=== PATIENT | male | born 1955 | race Caucasian/White ===

== ENCOUNTER → 2020-06-18 13:29 | Outpatient (BNVA) | payer OTHER, SELFPAY | PROVIDERS: Family Provider Nurse Practitioner; Visit Provider Internal Medicine | DX: E10.22 Type 1 diabetes mellitus with diabetic chronic kidney disease (principal); N18.5 Chronic kidney disease, stage 5; E10.319 Type 1 diabetes mellitus with unspecified diabetic retinopathy without macular edema; E10.65 Type 1 diabetes mellitus with hyperglycemia; E16.0 Drug-induced hypoglycemia without coma; T38.3X5A Adverse effect of insulin and oral hypoglycemic [antidiabetic] drugs, initial encounter; Z79.4 Long term (current) use of insulin | CPT/HCPCS: 95250; 99205 ==

== ENCOUNTER → 2020-07-01 14:36 | Outpatient (BNVA) | payer OTHER, SELFPAY | PROVIDERS: Family Provider Nurse Practitioner; Visit Provider Internal Medicine | DX: E10.22 Type 1 diabetes mellitus with diabetic chronic kidney disease (principal); N18.5 Chronic kidney disease, stage 5; E10.319 Type 1 diabetes mellitus with unspecified diabetic retinopathy without macular edema; E10.65 Type 1 diabetes mellitus with hyperglycemia; E16.0 Drug-induced hypoglycemia without coma; T38.3X5A Adverse effect of insulin and oral hypoglycemic [antidiabetic] drugs, initial encounter; Z79.4 Long term (current) use of insulin | CPT/HCPCS: 99214 ==

== ENCOUNTER → 2020-11-26 09:31 | Day surgery (SDC) | payer OTHER, SELFPAY ==
[2020-11-26 09:45] VITALS: BP 130/62; PULSE 58; RESP 18; TEMP 36.7; O2SAT 97
[2020-11-26 10:10] VITALS: BMI 31.4
[2020-11-26] MEDS: iron sucrose 200 MG in sodium chloride 0.9% (100 ml) 100 ML 220 MG IV (10:25)
== END ==
PROVIDERS: PCP Nurse Practitioner; Visit Provider Internal Medicine
DX: D50.9 Iron deficiency anemia, unspecified (principal)
CPT/HCPCS: 96365; J1756

== ENCOUNTER → 2020-12-03 09:42 | Day surgery (SDC) | payer OTHER, SELFPAY ==
[2020-12-03] MEDS: iron sucrose 200 MG in sodium chloride 0.9% (100 ml) 100 ML 220 MG IV (10:12)
[2020-12-03 10:15] VITALS: BP 131/60; PULSE 62; RESP 18; TEMP 36.5; O2SAT 96
[2020-12-03 10:16] VITALS: BMI 30.8
== END ==
PROVIDERS: PCP Nurse Practitioner; Visit Provider Internal Medicine
DX: D50.9 Iron deficiency anemia, unspecified (principal)
CPT/HCPCS: 96365; J1756

== ENCOUNTER 2020-12-31 09:41 | Outpatient (RCR) | payer OTHER, SELFPAY ==
[2020-12-10 13:28] VITALS: BMI 30.8
[2020-12-10] MEDS: iron sucrose 200 MG in sodium chloride 0.9% (100 ml) 100 ML 220 MG IV (13:28)
[2020-12-10 13:30] VITALS: BP 127/53; PULSE 60; RESP 18; TEMP 36.8; O2SAT 95
[2020-12-17 10:20] VITALS: BP 118/50; PULSE 61; RESP 18; TEMP 36.5; O2SAT 97
[2020-12-17] MEDS: iron sucrose 200 MG in sodium chloride 0.9% (100 ml) 100 ML 220 MG IV (10:28)
[2020-12-24 09:35] VITALS: BP 139/64; PULSE 64; RESP 18; TEMP 36.4; O2SAT 96
[2020-12-24] MEDS: iron sucrose 200 MG in sodium chloride 0.9% (100 ml) 100 ML 220 MG IV (09:40)
[2020-12-31 09:55] VITALS: BP 139/62; PULSE 68; RESP 16; TEMP 36.6; O2SAT 96
[2020-12-31 10:04] LABS: Hemoglobin 9.3 g/dL (11.7-16.6)
[2020-12-31 10:28] LABS: Ferritin 397 ng/mL (30-400); Iron 76 ug/dL (59-158); Percent Saturation 34.2 % (20-50); Total Iron Binding Capacity 222 mcg/dl; Unsaturated Iron Binding 146 ug/dL (112-347)
== END 2021-01-02 23:59 | disposition home or self-care (01) ==
LOC: GILAB 09:41
PROVIDERS: PCP Nurse Practitioner; Visit Provider Internal Medicine
DX: D50.9 Iron deficiency anemia, unspecified (principal)
CPT/HCPCS: 36415; 82728; 83540; 83550; 85018; 96365; J1756

== ENCOUNTER → 2021-01-03 13:42 | Outpatient (BNVA) | payer OTHER, SELFPAY | PROVIDERS: PCP Nurse Practitioner; Visit Provider Internal Medicine | DX: E10.65 Type 1 diabetes mellitus with hyperglycemia (principal); E10.22 Type 1 diabetes mellitus with diabetic chronic kidney disease; N18.5 Chronic kidney disease, stage 5; E10.319 Type 1 diabetes mellitus with unspecified diabetic retinopathy without macular edema; E16.0 Drug-induced hypoglycemia without coma; T38.3X5A Adverse effect of insulin and oral hypoglycemic [antidiabetic] drugs, initial encounter; Z79.4 Long term (current) use of insulin | CPT/HCPCS: 99214 ==

== ENCOUNTER 2021-05-07 17:04 | Emergency (ER) | payer OTHER, SELFPAY ==
[2021-05-07 17:23] VITALS: BP 207/104; PULSE 57; RESP 16; TEMP 36.6; O2SAT 99; BMI 29.4
--- NOTE | 2021-05-07 17:45 | CTR_ITS ---
PROCEDURE INFORMATION: Exam: CT Head Without Contrast Exam date and time: 05/07/2021 5:45 PM Age: 65 years old Clinical indication: Pain; Altered mental status/memory loss; Headache; Additional info: SCHROEDER TECHNIQUE: Imaging protocol: Computed tomography of the head without contrast. Radiation optimization: All CT scans at this facility use at least one of these dose optimization techniques: automated exposure control; mA and/or kV adjustment per patient size (includes targeted exams where dose is matched to clinical indication); or iterative reconstruction. COMPARISON: CT head wo con* [id number] 08/18/2016 11:40 AM RADIATION DOSE METRICS: Total DLP (mGy-cm): 880.65 FINDINGS: Brain: No hemorrhage. Moderate diffuse cerebral atrophy and sequela of chronic small vessel ischemic disease. No mass effect. Cerebral ventricles: No ventriculomegaly. Paranasal sinuses: Visualized sinuses are unremarkable. No fluid levels. Mastoid air cells: Visualized mastoid air cells are well aerated. Bones/joints: Unremarkable. No acute fracture. Soft tissues: Unremarkable. CT/CT head wo con* [id number] IMPRESSION: No acute intracranial abnormality.
--- NOTE | 2021-05-07 17:45 | XRR_ITS ---
PROCEDURE INFORMATION: Exam: XR Chest Exam date and time: 05/07/2021 5:45 PM Age: 65 years old Clinical indication: Other: Weakness TECHNIQUE: Imaging protocol: XR of the chest. Views: 1 view. COMPARISON: CR Chest 1 [place] [id number] 10/26/2017 6:51 PM FINDINGS: Lungs: Unremarkable. No consolidation. Pleural spaces: Unremarkable. No pleural effusion. No pneumothorax. Heart/Mediastinum: Cardiomegaly. Bones/joints: Unremarkable. XR/XR chest 1V portable [id number] IMPRESSION: Cardiomegaly. Otherwise, no acute findings.
--- NOTE | 2021-05-07 17:46 | ED_ITS ---
HPI - Weakness General: Chief complaint: Weakness Stated complaint: HYPERTENSIVE Time Seen by Provider: 05/07/21 17:41 Source: patient and EMS Mode of arrival: EMS Limitations: no limitations History of Present Illness: 65-year-old male who states that he does dialysis this morning does get dialysis Wednesday states that he is been having some weakness throughout the day along with high blood pressure. States that he is having some slurred speech difficulty walking they checked his blood sugar and it was low when EMS arrived he had drank some juice his blood sugar was 70 patient's blood sugar here is in the 30s currently we will give him D50 he is sluggish here denies any headache denies any vomiting or diarrhea he is on insulin for his diabetes. He states he has had issues with hypoglycemia in the past as well Associated symptoms: Reports headache(s); Denies chest pain, chills, dysuria, easy bruising, fever(s), nausea or vomiting Review of Systems Const: Denies: fever(s), chills, body aches or change in appetite Eyes: Denies: blurry vision or eye discomfort ENMT: Denies: throat pain or dental pain Card: Denies: chest pain Resp: Denies: dyspnea GI: Denies: abdominal pain, nausea, vomiting or diarrhea : Denies: dysuria Musc: Denies: neck pain or back pain Skin/Breast: Denies: rash Neuro: Reports: headache(s) and weakness in extremities Psych: Denies: depression [place]/Lymph: Denies: easy bruising All/Imm: Denies: urticaria PFSH ED PFSH: Medical History 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 Coronary artery disease Diabetic retinopathy Fistula of artery Tonsillectomy planned Uncontrolled type 1 diabetes mellitus Surgical History History of cholecystectomy Family History Other Cancer Diabetes Social History Smoking and tobacco status: former smoker Second hand smoke exposure: No Alcohol intake: never Physical Exam Const: COMMON NORMALS: no acute distress, patient oriented x3 and healthy appearing HENMT: COMMON NORMALS: normocephalic and atraumatic HEAD & SCALP: normocephalic and atraumatic Eye: COMMON NORMALS: Equal, round and reactive pupils present and EOMs intact bilaterally PUPIL: Yes Equal, round and reactive pupils present Neck/C-Spine: COMMON NORMALS: full ROM and supple Chest: COMMONS NORMALS: normal inspection of the chest and normal palpation of entire chest wall Resp: COMMON NORMALS: normal respiratory effort, No retractions, No use of accessory muscles and clear to auscultation bilaterally AUSCULTATION: clear to auscultation bilaterally Cardio: COMMON NORMALS: regular rate, regular rhythm and No murmurs present (Cardio) RATE: regular rate RHYTHM: regular rhythm GI: COMMON NORMALS: Normal to inspection, nondistended, normoactive bowel sounds present, Soft to palpation, non-tender and no masses PALPATION: Yes Soft to palpation Extremity: COMMON NORMALS: normal to inspection and full ROM Neuro: COMMON NORMALS: patient oriented x3, moves all extremities and no focal motor deficits Psych: COMMON NORMALS: mental status grossly normal, Normal thought process present and cooperative THOUGHT PROCESS: Normal thought process present Skin: COMMON NORMALS: no rashes or lesions noted and no wounds GENERAL SKIN EXAM: no rashes or lesions noted Course Vital Signs: Vital signs: Vital Signs Temperature 98.1 F 05/07/21 20:13 Pulse Rate 98 05/07/21 20:13 Respiratory Rate 16 05/07/21 20:13 Blood Pressure 191/99 05/07/21 20:13 Pulse Oximetry 99 05/07/21 20:13 MDM - Weakness Medical Decision Making Patient presents here with weakness likely from hypoglycemia his hypoglycemia is stabilized here and his last few blood glucoses has been normal and he is eaten here. He is also hypertensive which is chronic in nature he has no signs of a stroke blood work head CT are normal he is stable for discharge he is ambulating halls without any difficulty he is to follow-up PCP and return if worsening. Lab Data : 05/07/21 16:36 05/07/21 16:36 Radiology Impressions Chest X-Ray 05/07/21 17:45 IMPRESSION: Cardiomegaly. Otherwise, no acute findings. Head CT 05/07/21 17:45 IMPRESSION: No acute intracranial abnormality. Laboratory Results WBC 7.3 10^3/uL (4.0-10.0) 05/07/21 16:36 RBC 3.67 10^6/uL (4.1-5.3) L 05/07/21 16:36 Hgb 10.6 g/dL (11.7-16.6) L 05/07/21 16:36 Hct 32.8 % (42.0-52.0) L 05/07/21 16:36 MCV 89.4 fl (80-94) 05/07/21 16:36 MCH 28.9 pg (28.0-34.0) 05/07/21 16:36 MCHC 32.3 g/dL (30.0-36.0) 05/07/21 16:36 RDW 13.0 % (12.1-15.1) 05/07/21 16:36 Plt Count 347 10^3/cmm (130-400) 05/07/21 16:36 MPV 9.9 fL (7.4-10.4) 05/07/21 16:36 Neut % (Auto) 78.7 % 05/07/21 16:36 Lymph % (Auto) 12.0 % 05/07/21 16:36 [place] % (Auto) 6.0 % 05/07/21 16:36 Eos % (Auto) 2.5 % 05/07/21 16:36 Baso % (Auto) 0.4 % 05/07/21 16:36 Neut # (Auto) 5.76 10^3/uL (1.8-7.7) 05/07/21 16:36 Lymph # (Auto) 0.9 10^3/uL (0.8-4.8) 05/07/21 16:36 [place] # (Auto) 0.4 10^3/uL (0.2-0.9) 05/07/21 16:36 Eos # (Auto) 0.2 10^3/uL (0.0-0.8) 05/07/21 16:36 Baso # (Auto) 0.0 10^3/uL (0.0-0.1) 05/07/21 16:36 Nucleated RBC % (auto) 0 % 05/07/21 16:36 Nucleated RBCs # 0.0 /100WBC 05/07/21 16:36 PT 13.30 SECONDS (12.1-14.9) 05/07/21 16:36 INR 0.98 (0.8-1.2) 05/07/21 16:36 Sodium 141 mmol/L (136-145) 05/07/21 16:36 Potassium 3.8 mmol/L (3.5-5.1) 05/07/21 16:36 Chloride 100 mmol/L (98-107) 05/07/21 16:36 Carbon Dioxide 25 mmol/L (22-29) 05/07/21 16:36 Anion Gap 19.8 (5-19) H 05/07/21 16:36 BUN 18 mg/dL (8-23) 05/07/21 16:36 Creatinine 2.9 mg/dL (0.7-1.2) H 05/07/21 16:36 GFR Calculation 22.1 mL/min (90-130) L 05/07/21 16:36 Glucose 49 mg/dL (65-115) L 05/07/21 16:36 POC Glucose 237 mg/dL (70-110) H 05/07/21 21:08 Calculated Osmolality 291 mOsm/kg (285-295) 05/07/21 16:36 Calcium 9.6 mg/dL (8.5-10.5) 05/07/21 16:36 Total Bilirubin 0.3 mg/dL (0.15-1.2) 05/07/21 16:36 AST 17 U/L (0-40) 05/07/21 16:36 ALT 18 U/L (0-41) 05/07/21 16:36 Alkaline Phosphatase 75 IU/L (40-130) 05/07/21 16:36 Troponin T Baseline 46 ng/L (0-15) H 05/07/21 16:36 Troponin T 120 Minute 41.59 ng/L (0-15) H 05/07/21 18:16 Delta Troponin T -4.41 ABS# (0-10) L 05/07/21 18:16 Total Protein 6.8 g/dL (6.6-8.7) 05/07/21 16:36 Albumin 4.5 g/dL (3.5-5.2) 05/07/21 16:36 Globulin 2.3 g/dL (1.3-4.6) 05/07/21 16:36 Imaging Data CXR: I personally reviewed and interpreted this imaging study as follows: Radiologist's impression: IMPRESSION: Cardiomegaly. Otherwise, no acute findings. CT Head: Radiologist's impression: IMPRESSION: No acute intracranial abnormality EKG Data EKG 1: I personally reviewed and interpreted this EKG as follows: EKG interpretation date: 05/07/21 EKG interpretation time: 18:20 Interpretation: nsr hr [address] or t wave abnormalities qrs 117 qtc 471 Discharge Plan Discharge Patient Disposition: Home Clinical Impression: Hypoglycemia, Hypertension, 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 Condition: Stable Prescriptions: No Action calcitriol 0.5 mcg capsule 0.5 mcg PO DAILY 0RF rosuvastatin 10 mg tablet 10 mg PO DAILY 0RF nifedipine 90 mg tablet extended release 90 mg PO DAILY 0RF furosemide [Lasix] 80 mg tablet 80 mg PO BID 0RF hydralazine 100 mg tablet 100 mg PO TID 0RF carvedilol 12.5 mg tablet 12.5 mg PO BID 0RF Rx Instructions: must administer with a meal/food Procrit 4,000 unit/mL solution 4,000 unit SUBCUT .Q7days 0RF insulin lispro [Humalog KwikPen Insulin] 100 unit/mL insulin pen See Rx Instructions SUBCUT TID Qty: 15 3RF Rx Instructions: 180-200 15 units 201-220 20 units 221-240 22 units Tresiba FlexTouch U-200 200 unit/mL (3 mL) insulin pen 36 unit SUBCUT DAILY Qty: 18 3RF Rx Instructions: in the morning Discharge Orders: Discharge ED (Routine); Ordered 05/07/21 Ordered By: Sammy Almazan Referrals: Yasmin Kohler FNP [Primary Care Provider] - 1-3 days Discharge Diet: Advance as tolerated Discharge Activity: Resume usual activity Patient Instructions: Hypoglycemia in a Person with Diabetes (ED), Hypertension (ED) Coding Level of Care Code ED Combat Control Manager for Chg Fwd Exam Comprehensive NIH stroke score NIHSS Level Of Consciousness - 1a: 0 Level Of Consciousness Questions - 1b: Both Correct Level Of Consciousness Commands - 1c: Both Correct Best Gaze - 2: Normal Visual [place] - 3: No Visual Loss Facial Palsy - 4: Normal Motor Arm Right - 5: No Drift Motor Arm Left - 5: No Drift Motor Leg Right - 6: No Drift Motor Leg Left - 6: No Drift Limb Ataxia - 7: Absent Sensory - 8: Normal Best Language - 9: No Aphasia Dysarthia - 10: Normal Extinction And Inattention - 11: 0 Score Total Score: 0
--- NOTE | 2021-05-07 17:46 | ECG_ITS ---
[facility] Test Date: 2021-05-07 Pat Name: Leo Lake Department: Room: Gender: Male Manager Legal: : 1955 Requested By: Sammy Almazan Order Number: [id number] Kevin MD: Ad Deleon M.D. Measurements Intervals [place] Rate: 62 P: 67 [place]: 194 QRS: -27 QRSD: 117 T: 71 QT: 465 QTc: 475 Interpretive Statements SINUS RHYTHM POSSIBLE ANTERIOR MYOCARDIAL INFARCTION , OF INDETERMINATE AGE [30 ms Q WAVE IN V3/V4, OR R < 0.2 mV IN V4] Compared to ECG 10/26/2017 18:43:13 Sinus bradycardia no longer present ST (T wave) deviation no longer present Early repolarization no longer present Myocardial infarct finding still present Electronically Signed On 05-07-2021 18:27:13 AIR SAW OPERATOR by Ad Deleon M.D. [email or web address]/NU/[id number] f
[2021-05-07 17:53] LABS: Basophils % 0.4 %; Eosinophils # 0.2 10^3/uL (0.0-0.8); Eosinophils % 2.5 %; Hematocrit 32.8 % (42.0-52.0); Hemoglobin 10.6 g/dL (11.7-16.6); Lymphocytes # 0.9 10^3/uL (0.8-4.8); Mean Corpuscular HGB Conc 32.3 g/dL (30.0-36.0); Mean Corpuscular Hemoglobin 28.9 pg (28.0-34.0); Mean Corpuscular Volume 89.4 fl (80-94); Mean Platelet Volume 9.9 fL (7.4-10.4); Monocytes # 0.4 10^3/uL (0.2-0.9); Neutrophils # 5.76 10^3/uL (1.8-7.7); Neutrophils % 78.7 %; Nucleated Red Blood Cells % 0 %; Platelet Count 347 10^3/cmm (130-400); Red Blood Count 3.67 10^6/uL (4.1-5.3); White Blood Count 7.3 10^3/uL (4.0-10.0)
[2021-05-07] MEDS: hyDRALAzine 20 mg/mL INJ 1 mL 10 MG IVP ×2 (17:59→19:35)
[2021-05-07 18:00] VITALS: BP 218/104; PULSE 76; RESP 16; O2SAT 98
[2021-05-07 18:06] LABS: INR 0.98 (0.8-1.2)
[2021-05-07 18:29] LABS: Glucose Point of Care 39 mg/dL (70-110)
[2021-05-07 18:29] LABS: Glucose Point of Care 39 mg/dL (70-110)
[2021-05-07 18:30] LABS: Troponin(5th) Baseline 46 ng/L (0-15)
[2021-05-07 18:32] LABS: Alanine Aminotransferase 18 U/L (0-41); Albumin Level 4.5 g/dL (3.5-5.2); Alkaline Phosphatase 75 IU/L (40-130); Anion Gap 19.8 (5-19); Aspartate Amino Transferase 17 U/L (0-40); Blood Urea Nitrogen 18 mg/dL (8-23); Calcium 9.6 mg/dL (8.5-10.5); Carbon Dioxide 25 mmol/L (22-29); Chloride 100 mmol/L (98-107); Globulin 2.3 g/dL (1.3-4.6); Glomerular Filtration Rate 22.1 mL/min (90-130); Glucose 49 mg/dL (65-115); Osmolality Calculated 291 mOsm/kg (285-295); Potassium 3.8 mmol/L (3.5-5.1); Sodium 141 mmol/L (136-145); Total Bilirubin 0.3 mg/dL (0.15-1.2); Total Protein 6.8 g/dL (6.6-8.7)
[2021-05-07] MEDS: dextrose 50% syringe 50 mL IVP (18:32)
[2021-05-07 18:48] VITALS: BP 198/102
[2021-05-07 18:50] LABS: Troponin 5 2HR 41.59 ng/L (0-15)
[2021-05-07 18:53] LABS: Troponin 5 2HR Delta -4.41 ABS# (0-10)
[2021-05-07 19:14] LABS: Glucose Point of Care 156 mg/dL (70-110)
--- NOTE | 2021-05-07 19:46 | ECG_ITS ---
[facility] Test Date: 2021-05-07 Pat Name: Leo Lake Department: Room: Gender: Male Facility Maintenance Technician: : 1955 Requested By: Sammy Almazan Order Number: [id number] Kevin MD: Zeina Hodgson M.D. Measurements Intervals [place] Rate: 62 P: 67 RI: 194 QRS: -27 QRSD: 117 T: 71 QT: 465 QTc: 475 Interpretive Statements SINUS RHYTHM POSSIBLE ANTERIOR MYOCARDIAL INFARCTION , OF INDETERMINATE AGE [30 ms Q WAVE IN V3/V4, OR R < 0.2 mV IN V4] Compared to ECG 10/26/2017 18:43:13 Sinus bradycardia no longer present ST (T wave) deviation no longer present Early repolarization no longer present Myocardial infarct finding still present Electronically Signed On 05-08-2021 9:22:07 OLD COIN DEALER by Zeina Hodgson M.D. [email or web address] hospital of [email or web address] Good Softwareselect medical specialty hospital - [email or web address]/store/NU/[email or web address]/[id number] brad
[2021-05-07 20:01] LABS: Glucose Point of Care 95 mg/dL (70-110)
[2021-05-07 20:13] VITALS: BP 191/99; PULSE 98; RESP 16; TEMP 36.7; O2SAT 99
[2021-05-07] MEDS: labetalol 5 mg/mL SDV 20mL 10 MG IVP (20:48)
[2021-05-07 21:12] LABS: Glucose Point of Care 237 mg/dL (70-110)
== END 2021-05-07 21:49 | disposition home or self-care (01) ==
PROVIDERS: Emergency Provider Emergency Medicine; PCP Nurse Practitioner
DX: E10.649 Type 1 diabetes mellitus with hypoglycemia without coma (principal); E10.22 Type 1 diabetes mellitus with diabetic chronic kidney disease; I12.0 Hypertensive chronic kidney disease with stage 5 chronic kidney disease or end stage renal disease; N18.5 Chronic kidney disease, stage 5; I25.10 Atherosclerotic heart disease of native coronary artery without angina pectoris; Z79.4 Long term (current) use of insulin; Z87.891 Personal history of nicotine dependence
CPT/HCPCS: 36416; 70450; 71045; 80053; 82962; 84484; 85025; 85610; 93005; 96374; 96375; 96376; 99284; J0360; J3490

== ENCOUNTER → 2021-06-26 10:19 | Outpatient (BNVA) | payer OTHER, SELFPAY | PROVIDERS: PCP Nurse Practitioner; Visit Provider Internal Medicine | DX: E10.65 Type 1 diabetes mellitus with hyperglycemia (principal); E10.319 Type 1 diabetes mellitus with unspecified diabetic retinopathy without macular edema; E10.22 Type 1 diabetes mellitus with diabetic chronic kidney disease; N18.5 Chronic kidney disease, stage 5; E16.0 Drug-induced hypoglycemia without coma; T38.3X5A Adverse effect of insulin and oral hypoglycemic [antidiabetic] drugs, initial encounter; Z79.4 Long term (current) use of insulin | CPT/HCPCS: 99214 ==

== ENCOUNTER 2021-09-22 15:16 | Outpatient (CLI) | payer OTHER, SELFPAY ==
[2021-09-22 15:51] LABS: Estmated Average Glucose 114; Hemoglobin A1C 5.6 % (4.0-6.0)
[2021-09-22 15:55] LABS: Chol HDL Ratio 2.63 mg/dL (1.0-5.00); Cholesterol 129 mg/dL (0-200); HDL Cholesterol 49 mg/dL (60-100); LDL Cholesterol Calculated 62 mg/dL (50-129); LDL HDL Ratio 1.27 RATIO (0.00-3.22); Triglycerides 90 mg/dL (0-150)
== END 2021-09-22 15:17 | disposition home or self-care (01) ==
LOC: LAB 15:20
PROVIDERS: PCP Nurse Practitioner; Visit Provider Internal Medicine
DX: E10.65 Type 1 diabetes mellitus with hyperglycemia (principal); Z79.4 Long term (current) use of insulin
CPT/HCPCS: 80061; 83036

== ENCOUNTER → 2021-09-25 12:33 | Outpatient (BNVA) | payer OTHER, SELFPAY | PROVIDERS: PCP Nurse Practitioner; Visit Provider Internal Medicine | DX: E10.65 Type 1 diabetes mellitus with hyperglycemia (principal); E10.319 Type 1 diabetes mellitus with unspecified diabetic retinopathy without macular edema; E10.649 Type 1 diabetes mellitus with hypoglycemia without coma; E10.22 Type 1 diabetes mellitus with diabetic chronic kidney disease; N18.5 Chronic kidney disease, stage 5; E16.0 Drug-induced hypoglycemia without coma; T38.3X5A Adverse effect of insulin and oral hypoglycemic [antidiabetic] drugs, initial encounter; Z79.4 Long term (current) use of insulin | CPT/HCPCS: 99214 ==

== ENCOUNTER 2021-12-24 09:50 | Outpatient (CLI) | payer OTHER, SELFPAY ==
[2021-12-24 10:45] LABS: Chol HDL Ratio 2.78 mg/dL (1.0-5.00); Cholesterol 139 mg/dL (0-200); HDL Cholesterol 50 mg/dL (60-100); LDL Cholesterol Calculated 73 mg/dL (50-129); LDL HDL Ratio 1.46 RATIO (0.00-3.22); Triglycerides 81 mg/dL (0-150)
[2021-12-24 10:52] LABS: Estmated Average Glucose 134; Hemoglobin A1C 6.3 % (4.0-6.0)
== END 2021-12-24 09:51 | disposition home or self-care (01) ==
PROVIDERS: PCP Nurse Practitioner; Visit Provider Internal Medicine
DX: E10.65 Type 1 diabetes mellitus with hyperglycemia (principal); E16.0 Drug-induced hypoglycemia without coma; T38.3X5A Adverse effect of insulin and oral hypoglycemic [antidiabetic] drugs, initial encounter; Z79.4 Long term (current) use of insulin
CPT/HCPCS: 80061; 83036

== ENCOUNTER → 2021-12-29 14:34 | Outpatient (BNVA) | payer OTHER, SELFPAY | PROVIDERS: PCP Nurse Practitioner; Visit Provider Internal Medicine | DX: E10.65 Type 1 diabetes mellitus with hyperglycemia (principal); E10.22 Type 1 diabetes mellitus with diabetic chronic kidney disease; E10.319 Type 1 diabetes mellitus with unspecified diabetic retinopathy without macular edema; E10.649 Type 1 diabetes mellitus with hypoglycemia without coma; N18.5 Chronic kidney disease, stage 5; E16.0 Drug-induced hypoglycemia without coma; T38.3X5A Adverse effect of insulin and oral hypoglycemic [antidiabetic] drugs, initial encounter; Z79.4 Long term (current) use of insulin | CPT/HCPCS: 99214 ==

== ENCOUNTER 2022-04-23 09:07 | Outpatient (CLI) | payer OTHER, SELFPAY ==
[2022-04-23 09:53] LABS: Alanine Aminotransferase 18 U/L (0-41); Albumin Level 4.5 g/dL (3.5-5.2); Alkaline Phosphatase 63 U/L (40-130); Anion Gap 18.9 (5-19); Aspartate Amino Transferase 13 U/L (0-40); Blood Urea Nitrogen 33 mg/dL (8-23); Carbon Dioxide 30 mmol/L (22-29); Chloride 95 mmol/L (98-107); Chol HDL Ratio 2.56 mg/dL (1.0-5.00); Cholesterol 128 mg/dL (0-200); Globulin 2.6 g/dL (1.3-4.6); Glomerular Filtration Rate 9.7 mL/min (90-130); Glucose 140 mg/dL (65-115); HDL Cholesterol 50 mg/dL (60-100); LDL Cholesterol Calculated 60 mg/dL (50-129); Osmolality Calculated 300 mOsm/kg (285-295); Potassium 3.9 mmol/L (3.5-5.1); Sodium 140 mmol/L (136-145); Total Bilirubin 0.4 mg/dL (0.15-1.2); Total Protein 7.1 g/dL (6.6-8.7); Triglycerides 90 mg/dL (0-150)
[2022-04-23 10:03] LABS: Creatinine Urine, Random 134 mg/dL (39-259)
[2022-04-23 10:06] LABS: Estmated Average Glucose 174; Hemoglobin A1C 7.7 % (4.0-6.0)
[2022-04-23 10:21] LABS: Microalbum Creatinine Ratio Ur 1493 mg/dL (0-20); Microalbumin Random Urine 200 ug/dL (0-20)
== END 2022-04-23 09:08 | disposition home or self-care (01) ==
LOC: LAB 09:14
PROVIDERS: PCP Nurse Practitioner; Visit Provider Internal Medicine
DX: E10.65 Type 1 diabetes mellitus with hyperglycemia (principal); E10.22 Type 1 diabetes mellitus with diabetic chronic kidney disease; N18.5 Chronic kidney disease, stage 5
CPT/HCPCS: 36415; 80053; 80061; 82044; 83036

== ENCOUNTER → 2022-05-12 14:04 | Outpatient (BNVA) | payer OTHER, SELFPAY | PROVIDERS: PCP Nurse Practitioner; Visit Provider Internal Medicine | DX: E10.319 Type 1 diabetes mellitus with unspecified diabetic retinopathy without macular edema (principal); E10.65 Type 1 diabetes mellitus with hyperglycemia; E10.22 Type 1 diabetes mellitus with diabetic chronic kidney disease; E10.649 Type 1 diabetes mellitus with hypoglycemia without coma; E78.2 Mixed hyperlipidemia; I25.10 Atherosclerotic heart disease of native coronary artery without angina pectoris; N18.5 Chronic kidney disease, stage 5; E16.0 Drug-induced hypoglycemia without coma; T38.3X5A Adverse effect of insulin and oral hypoglycemic [antidiabetic] drugs, initial encounter; Z79.4 Long term (current) use of insulin | CPT/HCPCS: 99214 ==

== ENCOUNTER 2022-08-06 09:36 | Outpatient (CLI) | payer OTHER, SELFPAY ==
[2022-08-06 10:22] LABS: Alanine Aminotransferase 19 U/L (0-41); Albumin Level 4.3 g/dL (3.5-5.2); Alkaline Phosphatase 63 U/L (40-130); Anion Gap 15.6 (5-19); Aspartate Amino Transferase 12 U/L (0-40); Blood Urea Nitrogen 31 mg/dL (8-23); Calcium 9.3 mg/dL (8.5-10.5); Carbon Dioxide 32 mmol/L (22-29); Chloride 94 mmol/L (98-107); Cholesterol 206 mg/dL (0-200); Globulin 2.7 g/dL (1.3-4.6); Glomerular Filtration Rate 9.2 mL/min (90-130); Glucose 283 mg/dL (65-115); HDL Cholesterol 42 mg/dL (60-100); LDL Cholesterol Calculated 129 mg/dL (50-129); LDL HDL Ratio 3.07 RATIO (0.00-3.22); Osmolality Calculated 303 mOsm/kg (285-295); Potassium 3.6 mmol/L (3.5-5.1); Sodium 138 mmol/L (136-145); Total Bilirubin 0.3 mg/dL (0.15-1.2); Triglycerides 174 mg/dL (0-150)
[2022-08-06 10:35] LABS: Estmated Average Glucose 166; Hemoglobin A1C 7.4 % (4.0-6.0)
== END 2022-08-06 09:37 | disposition home or self-care (01) ==
LOC: LAB 09:40
PROVIDERS: PCP Nurse Practitioner; Visit Provider Internal Medicine
DX: E10.65 Type 1 diabetes mellitus with hyperglycemia (principal); E78.2 Mixed hyperlipidemia; I25.10 Atherosclerotic heart disease of native coronary artery without angina pectoris; Z79.4 Long term (current) use of insulin
CPT/HCPCS: 36415; 80053; 80061; 83036

== ENCOUNTER → 2022-08-13 13:32 | Outpatient (BNVA) | payer OTHER, SELFPAY | PROVIDERS: PCP Nurse Practitioner; Visit Provider Internal Medicine | DX: E10.65 Type 1 diabetes mellitus with hyperglycemia (principal); E10.22 Type 1 diabetes mellitus with diabetic chronic kidney disease; E10.319 Type 1 diabetes mellitus with unspecified diabetic retinopathy without macular edema; E10.649 Type 1 diabetes mellitus with hypoglycemia without coma; N18.5 Chronic kidney disease, stage 5; T38.3X5A Adverse effect of insulin and oral hypoglycemic [antidiabetic] drugs, initial encounter; E16.0 Drug-induced hypoglycemia without coma; E78.2 Mixed hyperlipidemia; I25.10 Atherosclerotic heart disease of native coronary artery without angina pectoris; X58.XXXA Exposure to other specified factors, initial encounter | CPT/HCPCS: 99214 ==

== ENCOUNTER 2022-11-16 15:27 | Outpatient (CLI) | payer OTHER, SELFPAY ==
--- NOTE | 2022-11-16 15:40 | XRR_ITS ---
PROCEDURE INFORMATION: Exam: XR Chest Exam date and time: 11/16/2022 3:52 PM Age: 66 years old Clinical indication: Cough and shortness of breath; Additional info: SOB TECHNIQUE: Imaging protocol: Radiologic exam of the chest. Views: 2 views. COMPARISON: CR XR chest 1V portable [id number] 05/07/2021 6:15 PM FINDINGS: Lungs: Unremarkable. No consolidation. Pleural spaces: Unremarkable. No pleural effusion. No pneumothorax. Heart/Mediastinum: Unremarkable. No cardiomegaly. Bones/joints: Unremarkable. XR/XR chest 2V* [id number] IMPRESSION: No acute findings.
== END 2022-11-16 15:28 | disposition home or self-care (01) ==
LOC: RAD 15:30
PROVIDERS: PCP Nurse Practitioner; Visit Provider Internal Medicine Nephrology
DX: R06.02 Shortness of breath (principal)
CPT/HCPCS: 71046

== ENCOUNTER → 2022-11-17 11:43 | Outpatient (BNVA) | payer MEDICARE, OTHER, SELFPAY | PROVIDERS: PCP Nurse Practitioner; Visit Provider Nurse Practitioner Family | DX: R05.9 Cough, unspecified (principal) | CPT/HCPCS: 87426 ==

== ENCOUNTER 2022-11-27 08:27 | Outpatient (CLI) | payer MEDICARE, OTHER, SELFPAY ==
[2022-11-27 09:39] LABS: Alanine Aminotransferase 21 U/L (0-41); Albumin Level 4.4 g/dL (3.5-5.2); Alkaline Phosphatase 59 U/L (40-130); Anion Gap 19.7 (5-19); Aspartate Amino Transferase 22 U/L (0-40); Blood Urea Nitrogen 55 mg/dL (8-23); Calcium 10.1 mg/dL (8.5-10.5); Carbon Dioxide 29 mmol/L (22-29); Chloride 96 mmol/L (98-107); Chol HDL Ratio 2.73 mg/dL (1.0-5.00); Cholesterol 123 mg/dL (0-200); Globulin 2.4 g/dL (1.3-4.6); Glucose 176 mg/dL (65-115); HDL Cholesterol 45 mg/dL (60-100); LDL Cholesterol Calculated 41 mg/dL (50-129); LDL HDL Ratio 0.91 RATIO (0.00-3.22); Osmolality Calculated 311 mOsm/kg (285-295); Potassium 3.7 mmol/L (3.5-5.1); Sodium 141 mmol/L (136-145); Total Bilirubin 0.3 mg/dL (0.15-1.2); Total Protein 6.8 g/dL (6.6-8.7); Triglycerides 186 mg/dL (0-150)
[2022-11-27 10:05] LABS: Estmated Average Glucose 163; Hemoglobin A1C 7.3 % (4.0-6.0)
[2022-11-27 10:54] LABS: Creatinine Urine, Random 85 mg/dL (39-259)
[2022-11-27 11:08] LABS: Microalbum Creatinine Ratio Ur 965 mg/dL (0-20); Microalbumin Random Urine 82 ug/dL (0-20)
== END 2022-11-27 08:28 | disposition home or self-care (01) ==
PROVIDERS: PCP Nurse Practitioner; Visit Provider Internal Medicine
DX: E10.65 Type 1 diabetes mellitus with hyperglycemia (principal); Z79.4 Long term (current) use of insulin; E10.22 Type 1 diabetes mellitus with diabetic chronic kidney disease; N18.5 Chronic kidney disease, stage 5; E11.319 Type 2 diabetes mellitus with unspecified diabetic retinopathy without macular edema; E16.0 Drug-induced hypoglycemia without coma; T38.3X5A Adverse effect of insulin and oral hypoglycemic [antidiabetic] drugs, initial encounter; Y99.9 Unspecified external cause status; E78.2 Mixed hyperlipidemia
CPT/HCPCS: 36415; 80053; 80061; 82044; 83036

== ENCOUNTER → 2022-12-03 09:32 | Outpatient (BNVA) | payer OTHER, SELFPAY | PROVIDERS: PCP Nurse Practitioner; Visit Provider Internal Medicine | DX: Z79.4 Long term (current) use of insulin; E10.22 Type 1 diabetes mellitus with diabetic chronic kidney disease; N18.5 Chronic kidney disease, stage 5; E16.0 Drug-induced hypoglycemia without coma; T38.3X5A Adverse effect of insulin and oral hypoglycemic [antidiabetic] drugs, initial encounter; E78.2 Mixed hyperlipidemia; E10.649 Type 1 diabetes mellitus with hypoglycemia without coma; E10.319 Type 1 diabetes mellitus with unspecified diabetic retinopathy without macular edema | CPT/HCPCS: 99214 ==

== ENCOUNTER → 2022-12-15 08:02 | Outpatient (BNVA) | payer OTHER, SELFPAY | PROVIDERS: PCP Nurse Practitioner; Visit Provider Nurse Practitioner Family | DX: L82.1 Other seborrheic keratosis (principal); L57.0 Actinic keratosis; D22.5 Melanocytic nevi of trunk; L81.4 Other melanin hyperpigmentation; L57.8 Other skin changes due to chronic exposure to nonionizing radiation | CPT/HCPCS: 11102; 17000; 17003; 99203 ==

== ENCOUNTER 2023-03-04 09:32 | Outpatient (CLI) | payer OTHER, SELFPAY ==
[2023-03-04 10:19] LABS: Alanine Aminotransferase 19 U/L (0-41); Albumin Level 4.3 g/dL (3.5-5.2); Alkaline Phosphatase 71 U/L (40-130); Anion Gap 14.6 (5-19); Aspartate Amino Transferase 13 U/L (0-40); Calcium 9.9 mg/dL (8.5-10.5); Chol HDL Ratio 2.91 mg/dL (1.0-5.00); Cholesterol 131 mg/dL (0-200); Globulin 2.7 g/dL (1.3-4.6); LDL Cholesterol Calculated 54 mg/dL (50-129); Potassium 4.6 mmol/L (3.5-5.1); Sodium 140 mmol/L (136-145); Total Bilirubin 0.4 mg/dL (0.15-1.2)
[2023-03-04 10:46] LABS: Creatinine Urine, Random 101 mg/dL (39-259)
[2023-03-04 10:47] LABS: Estmated Average Glucose 166; Hemoglobin A1C 7.4 % (4.0-6.0)
[2023-03-04 11:00] LABS: Microalbum Creatinine Ratio Ur 1644 mg/dL (0-20); Microalbumin Random Urine 166 ug/dL (0-20)
[2023-03-04 12:04] LABS: Blood Urea Nitrogen 30 mg/dL (8-23); Carbon Dioxide 33 mmol/L (22-29); Chloride 97 mmol/L (98-107)
[2023-03-04 12:05] LABS: Glomerular Filtration Rate 8.8 mL/min (90-130); Glucose 296 mg/dL (65-115); HDL Cholesterol 45 mg/dL (60-100); Osmolality Calculated 307 mOsm/kg (285-295); Triglycerides 158 mg/dL (0-150)
== END 2023-03-04 09:33 | disposition home or self-care (01) ==
PROVIDERS: PCP Nurse Practitioner; Visit Provider Internal Medicine
DX: E10.22 Type 1 diabetes mellitus with diabetic chronic kidney disease (principal); N18.5 Chronic kidney disease, stage 5; Z79.4 Long term (current) use of insulin; E16.0 Drug-induced hypoglycemia without coma; T38.3X5A Adverse effect of insulin and oral hypoglycemic [antidiabetic] drugs, initial encounter; E78.2 Mixed hyperlipidemia
CPT/HCPCS: 36415; 80053; 80061; 82044; 83036

== ENCOUNTER → 2023-03-11 08:28 | Outpatient (BNVA) | payer OTHER, SELFPAY | PROVIDERS: PCP Nurse Practitioner; Visit Provider Internal Medicine | DX: Z79.4 Long term (current) use of insulin; E10.22 Type 1 diabetes mellitus with diabetic chronic kidney disease; N18.5 Chronic kidney disease, stage 5; E16.0 Drug-induced hypoglycemia without coma; T38.3X5A Adverse effect of insulin and oral hypoglycemic [antidiabetic] drugs, initial encounter; E78.2 Mixed hyperlipidemia; E10.319 Type 1 diabetes mellitus with unspecified diabetic retinopathy without macular edema; E10.649 Type 1 diabetes mellitus with hypoglycemia without coma; X58.XXXA Exposure to other specified factors, initial encounter | CPT/HCPCS: 99214 ==

== ENCOUNTER → 2023-06-15 13:07 | Outpatient (BNVA) | payer OTHER, SELFPAY | PROVIDERS: PCP Nurse Practitioner; Visit Provider Nurse Practitioner Family | DX: D22.5 Melanocytic nevi of trunk (principal); L81.4 Other melanin hyperpigmentation; L57.8 Other skin changes due to chronic exposure to nonionizing radiation; Z99.2 Dependence on renal dialysis; L82.1 Other seborrheic keratosis | CPT/HCPCS: 99213 ==

== ENCOUNTER 2023-07-02 08:14 | Outpatient (CLI) | payer OTHER, SELFPAY ==
[2023-07-02 08:50] LABS: Alanine Aminotransferase 14 U/L (0-41); Albumin Level 4.2 g/dL (3.5-5.2); Alkaline Phosphatase 75 U/L (40-130); Anion Gap 21.9 (5-19); Aspartate Amino Transferase 9 U/L (0-40); Blood Urea Nitrogen 59 mg/dL (8-23); Calcium 9.5 mg/dL (8.5-10.5); Carbon Dioxide 24 mmol/L (22-29); Chloride 99 mmol/L (98-107); Chol HDL Ratio 3.37 mg/dL (1.0-5.00); Cholesterol 128 mg/dL (0-200); Globulin 2.9 g/dL (1.3-4.6); Glomerular Filtration Rate 5.8 mL/min (90-130); Glucose 137 mg/dL (65-115); HDL Cholesterol 38 mg/dL (60-100); LDL Cholesterol Calculated 58 mg/dL (50-129); LDL HDL Ratio 1.53 RATIO (0.00-3.22); Osmolality Calculated 311 mOsm/kg (285-295); Potassium 3.9 mmol/L (3.5-5.1); Sodium 141 mmol/L (136-145); Total Bilirubin 0.4 mg/dL (0.15-1.2); Total Protein 7.1 g/dL (6.6-8.7); Triglycerides 159 mg/dL (0-150)
[2023-07-02 08:55] LABS: Creatinine Urine, Random 187 mg/dL (39-259)
[2023-07-02 09:12] LABS: Estmated Average Glucose 151; Hemoglobin A1C 6.9 % (4.0-6.0)
[2023-07-02 10:57] LABS: Microalbum Creatinine Ratio Ur 2321 mg/dL (0-20); Microalbumin Random Urine 434 ug/dL (0-20)
== END 2023-07-02 08:15 | disposition home or self-care (01) ==
LOC: LAB 08:15
PROVIDERS: PCP Nurse Practitioner; Visit Provider Internal Medicine
DX: E10.22 Type 1 diabetes mellitus with diabetic chronic kidney disease (principal); N18.5 Chronic kidney disease, stage 5
CPT/HCPCS: 36415; 80053; 80061; 82044; 83036

== ENCOUNTER → 2023-07-06 09:21 | Outpatient (BNVA) | payer OTHER, SELFPAY | PROVIDERS: PCP Nurse Practitioner; Visit Provider Internal Medicine | DX: Z79.4 Long term (current) use of insulin; E10.22 Type 1 diabetes mellitus with diabetic chronic kidney disease; E10.649 Type 1 diabetes mellitus with hypoglycemia without coma; N18.5 Chronic kidney disease, stage 5; E16.0 Drug-induced hypoglycemia without coma; E78.2 Mixed hyperlipidemia; E10.319 Type 1 diabetes mellitus with unspecified diabetic retinopathy without macular edema; T38.3X5A Adverse effect of insulin and oral hypoglycemic [antidiabetic] drugs, initial encounter; X58.XXXA Exposure to other specified factors, initial encounter | CPT/HCPCS: 99214 ==

== ENCOUNTER 2023-09-06 08:38 | Outpatient (CLI) | payer OTHER, SELFPAY ==
[2023-09-06 09:24] LABS: Estmated Average Glucose 163; Hemoglobin A1C 7.3 % (4.0-6.0)
[2023-09-06 09:30] LABS: Alanine Aminotransferase 22 U/L (0-41); Albumin Level 4.2 g/dL (3.5-5.2); Alkaline Phosphatase 72 U/L (40-130); Anion Gap 16.3 (5-19); Aspartate Amino Transferase 11 U/L (0-40); Blood Urea Nitrogen 53 mg/dL (8-23); Calcium 9.2 mg/dL (8.5-10.5); Carbon Dioxide 28 mmol/L (22-29); Chloride 97 mmol/L (98-107); Chol HDL Ratio 3.05 mg/dL (1.0-5.00); Cholesterol 116 mg/dL (0-200); Globulin 2.7 g/dL (1.3-4.6); Glomerular Filtration Rate 6.1 mL/min (90-130); Glucose 177 mg/dL (65-115); HDL Cholesterol 38 mg/dL (60-100); LDL Cholesterol Calculated 51 mg/dL (50-129); LDL HDL Ratio 1.34 RATIO (0.00-3.22); Osmolality Calculated 303 mOsm/kg (285-295); Potassium 4.3 mmol/L (3.5-5.1); Sodium 137 mmol/L (136-145); Total Bilirubin 0.3 mg/dL (0.15-1.2); Total Protein 6.9 g/dL (6.6-8.7); Triglycerides 134 mg/dL (0-150)
[2023-09-06 09:40] LABS: Creatinine Urine, Random 160 mg/dL (39-259)
[2023-09-06 09:52] LABS: Microalbum Creatinine Ratio Ur 2513 mg/dL (0-20); Microalbumin Random Urine 402 ug/dL (0-20)
== END 2023-09-06 08:39 | disposition home or self-care (01) ==
LOC: LAB 08:39
PROVIDERS: PCP Nurse Practitioner; Visit Provider Internal Medicine
DX: E78.2 Mixed hyperlipidemia (principal); Z79.4 Long term (current) use of insulin; E16.0 Drug-induced hypoglycemia without coma; T38.3X5A Adverse effect of insulin and oral hypoglycemic [antidiabetic] drugs, initial encounter; X58.XXXA Exposure to other specified factors, initial encounter
CPT/HCPCS: 36415; 80053; 80061; 82044; 83036

== ENCOUNTER 2023-11-06 23:19 | Emergency (ER) | payer OTHER, MEDICARE, SELFPAY ==
[2023-11-06 23:25] VITALS: BP 173/79; PULSE 74; RESP 17; TEMP 36.6; O2SAT 95; BMI 31.5
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
[2023-11-06 23:40] VITALS: BP 173/79; PULSE 74; RESP 17; TEMP 36.6; O2SAT 95
[2023-11-06] MEDS: TRAMadol 50 mg Tablet PO (23:56)
[2023-11-07 00:11] VITALS: BP 173/79; PULSE 74; RESP 17; TEMP 36.6; O2SAT 95
== END 2023-11-07 00:12 | disposition home or self-care (01) ==
PROVIDERS: Emergency Provider Physician Assistant; PCP Nurse Practitioner
DX: H72.91 Unspecified perforation of tympanic membrane, right ear (principal); Z79.82 Long term (current) use of aspirin; Z79.4 Long term (current) use of insulin; I25.10 Atherosclerotic heart disease of native coronary artery without angina pectoris; E10.22 Type 1 diabetes mellitus with diabetic chronic kidney disease; N18.5 Chronic kidney disease, stage 5
CPT/HCPCS: 99283

== ENCOUNTER → 2023-11-18 11:38 | Outpatient (BNVA) | payer OTHER, SELFPAY | PROVIDERS: PCP Nurse Practitioner; Visit Provider Internal Medicine | DX: Z79.4 Long term (current) use of insulin (principal); E11.22 Type 2 diabetes mellitus with diabetic chronic kidney disease; E16.0 Drug-induced hypoglycemia without coma; T38.3X5A Adverse effect of insulin and oral hypoglycemic [antidiabetic] drugs, initial encounter; E78.2 Mixed hyperlipidemia; N18.5 Chronic kidney disease, stage 5; E11.319 Type 2 diabetes mellitus with unspecified diabetic retinopathy without macular edema; E11.649 Type 2 diabetes mellitus with hypoglycemia without coma; X58.XXXA Exposure to other specified factors, initial encounter | CPT/HCPCS: 99214 ==

== ENCOUNTER 2023-11-25 17:53 | Observation (INO) | payer OTHER, MEDICARE, SELFPAY ==
[2023-11-25] VITALS (10 sets, daily range): BP systolic 160–209; BP diastolic 93–106; PULSE 66–77; RESP 18; TEMP 36.5; O2SAT 94–99; BMI 32.1; BMI 31.5
[2023-11-25 18:51] LABS: Basophils # 0.1 10^3/uL (0.0-0.1); Basophils % 0.7 %; Eosinophils # 0.5 10^3/uL (0.0-0.8); Eosinophils % 6.5 %; Hematocrit 34.4 % (37-53); Lymphocytes # 1.6 10^3/uL (0.8-4.8); Lymphocytes % 21.2 %; Mean Corpuscular HGB Conc 33.7 g/dL (30-55); Mean Corpuscular Hemoglobin 31.2 pg (27-33); Mean Corpuscular Volume 92.5 fl (82-101); Mean Platelet Volume 9.9 fL (7.4-10.4); Monocytes # 0.7 10^3/uL (0.2-0.9); Monocytes % 9.1 %; Neutrophils # 4.72 10^3/uL (1.8-7.7); Neutrophils % 62.2 %; Nucleated Red Blood Cells % 0 %; Platelet Count 309 10^3/cmm (157-399); Red Blood Count 3.72 10^6/uL (3.85-5.65); Red Cell Distribution Width 13.2 % (12.1-15.1); White Blood Count 7.58 10^3/uL (3.29-11.43)
[2023-11-25] MEDS: cloNIDine 0.1 mg Tablet 0.2 MG PO (19:01)
--- NOTE | 2023-11-25 19:06 | W.ED.ABDPA2 ---
HPI - Abdominal Pain General: Chief Complaint: Abdominal Pain Stated Complaint: abd pain Time Seen by Provider: 11/25/23 18:30 History of Present Illness: Patient presents to the ER with complaints of abdominal pain superior to his bellybutton. He says it does not hurt anywhere else. Patient does feel a hard knot when he pushes down on this area. He is never experienced this before. Patient is a dialysis patient does not make urine. Patient denies any nausea vomiting diarrhea constipation fever or chills. Related Data Home Medications Medication Instructions Recorded Confirmed calcitriol 0.5 mcg capsule 0.5 mcg PO DAILY 06/18/20 11/18/23 carvedilol 12.5 mg tablet 12.5 mg PO BID 06/18/20 11/18/23 furosemide 80 mg tablet (Lasix) 80 mg PO BID 06/18/20 11/18/23 aspirin 81 mg tablet,delayed 81 mg PO .3 days a week 06/26/21 11/18/23 release nifedipine 90 mg tablet,extended 30 mg PO DAILY 05/12/22 11/18/23 release Previous Rx's Medication Instructions Recorded blood-glucose meter,continuous #1 ea 07/07/21 (Dexcom G6 Track Car Operator) albuterol sulfate 90 mcg/actuation 2 puff inhalation QID #6.7 grams 11/17/22 aerosol inhaler (Ventolin HFA) doxycycline hyclate 100 mg tablet 100 mg PO BID 7 days #14 tabs 11/17/22 rosuvastatin 10 mg tablet 10 mg PO DAILY #30 tabs 01/25/23 insulin degludec 200 unit/mL (3 26 unit (0.13 mL) SUBCUT DAILY #18 03/11/23 mL) subcutaneous pen (Tresiba mL FlexTouch U-200 insulin) blood-glucose transmitter (Dexcom #1 ea 08/03/23 G6 Transmitter device) insulin lispro 100 unit/mL See Rx Instructions .Route 10/18/23 subcutaneous pen (Humalog KwikPen .COMPLEX #60 mL (U-100) Insulin) amoxicillin 875 mg-potassium 1 tab PO BID #14 tabs 11/06/23 clavulanate 125 mg tablet tramadol 50 mg tablet 50 - 100 mg (1 - 2 x 50 mg) PO Q6H 11/06/23 PRN pain #10 tabs blood-glucose sensor (Dexcom G7 #9 ea 11/18/23 Sensor device) Allergies Allergy/AdvReac Type Severity Reaction Status Date / Time No Known Allergies Allergy Verified 11/18/23 07:55 Review of Systems General: Reports: 10 or more systems reviewed and unremarkable except in HPI and below PFSH ED PFSH: Medical History Coronary artery disease Diabetic retinopathy 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 Uncontrolled type 1 diabetes mellitus Surgical History AV fistula History of tonsillectomy History of colonoscopy History of cholecystectomy Family History Other Cancer Diabetes Social History Smoking and tobacco/nicotine status: never used tobacco/nicotine Second hand smoke exposure: No Alcohol intake: never Physical Exam Const: COMMON NORMALS: no acute distress, average body habitus, patient oriented x3, no limitations, healthy appearing, alert and well nourished HENMT: COMMON NORMALS: normocephalic, atraumatic, hearing grossly normal bilaterally, external ears normal, Normal external nose present and moist oral mucous membranes HEAD & SCALP: normocephalic and atraumatic NOSE: Normal external nose present EXTERNAL EAR: Yes external ears normal Neck/C-Spine: COMMON NORMALS: no JVD Chest: COMMONS NORMALS: normal inspection of the chest and normal palpation of entire chest wall Resp: COMMON NORMALS: normal respiratory effort, No retractions, No use of accessory muscles and clear to auscultation bilaterally AUSCULTATION: clear to auscultation bilaterally Cardio: COMMON NORMALS: no JVD, regular rate, regular rhythm, S1 normal heart sound present, S2 normal heart sound present, No gallops present (Cardio), No clicks present (Cardio), No murmurs present (Cardio) and No rub (Cardio) RATE: regular rate RHYTHM: regular rhythm HEART SOUNDS: S1 normal heart sound present and S2 normal heart sound present GI: COMMON NORMALS: Normal to inspection, nondistended, normoactive bowel sounds present, Soft to palpation, No hepatosplenomegaly present and no masses; negative for non-tender (Tender to palpate just superior to the umbilicus, possible soft tissue mass) PALPATION: Yes Soft to palpation and Yes No hepatosplenomegaly present Neuro: COMMON NORMALS: patient oriented x3 SENSORIUM/ORIENTATION: Yes alert Course Vital Signs: Vital signs: Vital Signs Temperature 97.7 F 11/25/23 18:00 Pulse Rate 70 11/25/23 21:29 Respiratory Rate 18 11/25/23 18:00 Blood Pressure 189/96 11/25/23 21:29 Pulse Oximetry 95 11/25/23 21:29 Oxygen Delivery Me thod Room Air 11/25/23 18:00 MDM - Abdominal Pain Medical Decision Making Manual reduction of hernia was tried at bedside patient tolerated procedure well could not verify that hernia was reduced no obvious reduction noted. Patient is starting to get nauseous. Dr. Doll has been consulted we will admit to him placing NG tube start fluids and consult medicine for medical management. Dr. Kraft has been notified and agrees to consult for medical management Differential Diagnosis Likely abdominal pain Medical Records I reviewed the patient's medical records. Lab Data I reviewed the patient's lab results. 11/25/23 18:40 11/25/23 18:40 Labs/Radiology: Radiology Impressions Abdomen/Pelvis CT 11/25/23 19:09 IMPRESSION: 1. Small umbilical hernia containing a loop of small bowel. The proximal bowel loops are mildly distended with air-fluid levels and fecalization of stool, concerning for bowel obstruction. No pneumoperitoneum. 2. Severe prostatomegaly. 3. Diverticulosis without evidence of diverticulitis. COMMENT: THIS REPORT CONTAINS FINDINGS THAT MAY BE CRITICAL TO PATIENT CARE. The exam findings were verbally communicated by me to Mayank Reed via telephone conference at 8:02 PM CDT on 11/25/2023. The findings were acknowledged and understood. Laboratory Results WBC 7.58 10^3/uL (3.29-11.43) 11/25/23 18:40 RBC 3.72 10^6/uL (3.85-5.65) L 11/25/23 18:40 Hgb 11.60 g/dL (11.27-16.99) 11/25/23 18:40 Hct 34.4 % (37-53) L 11/25/23 18:40 MCV 92.5 fl (82-101) 11/25/23 18:40 MCH 31.2 pg (27-33) 11/25/23 18:40 MCHC 33.7 g/dL (30-55) 11/25/23 18:40 RDW 13.2 % (12.1-15.1) 11/25/23 18:40 Plt Count 309 10^3/cmm (157-399) 11/25/23 18:40 MPV 9.9 fL (7.4-10.4) 11/25/23 18:40 Neut % (Auto) 62.2 % 11/25/23 18:40 Lymph % (Auto) 21.2 % 11/25/23 18:40 [place] % (Auto) 9.1 % 11/25/23 18:40 Eos % (Auto) 6.5 % 11/25/23 18:40 Baso % (Auto) 0.7 % 11/25/23 18:40 Neut # (Auto) 4.72 10^3/uL (1.8-7.7) 11/25/23 18:40 Lymph # (Auto) 1.6 10^3/uL (0.8-4.8) 11/25/23 18:40 [place] # (Auto) 0.7 10^3/uL (0.2-0.9) 11/25/23 18:40 Eos # (Auto) 0.5 10^3/uL (0.0-0.8) 11/25/23 18:40 Baso # (Auto) 0.1 10^3/uL (0.0-0.1) 11/25/23 18:40 Nucleated RBC % (auto) 0 % 11/25/23 18:40 Nucleated RBCs # 0.0 /100WBC 11/25/23 18:40 Sodium 138 mmol/L (136-145) 11/25/23 18:40 Potassium 3.8 mmol/L (3.5-5.1) 11/25/23 18:40 Chloride 92 mmol/L (98-107) L 11/25/23 18:40 Carbon Dioxide 31 mmol/L (22-29) H 11/25/23 18:40 Anion Gap 18.8 (5-19) 11/25/23 18:40 BUN 52 mg/dL (8-23) H 11/25/23 18:40 Creatinine 7.3 mg/dL (0.7-1.2) H* 11/25/23 18:40 GFR Calculation 7.6 mL/min (90-130) L 11/25/23 18:40 Glucose 139 mg/dL (65-115) H 11/25/23 18:40 Calculated Osmolality 302 mOsm/kg (285-295) H 11/25/23 18:40 Lactic Acid 1.0 mmol/L (0.5-2.2) 11/25/23 18:40 Calcium 10.9 mg/dL (8.5-10.5) H 11/25/23 18:40 Phosphorus 5.3 mg/dL (2.5-4.5) H 11/25/23 18:40 Magnesium 2.4 mg/dL (1.7-2.3) H 11/25/23 18:40 Total Bilirubin 0.2 mg/dL (0.15-1.2) 11/25/23 18:40 AST 15 U/L (0-40) 11/25/23 18:40 ALT 22 U/L (0-41) 11/25/23 18:40 Alkaline Phosphatase 76 U/L (40-130) 11/25/23 18:40 C-Reactive Protein 4.7 mg/L (0.0-4.9) 11/25/23 18:40 Total Protein 7.4 g/dL (6.6-8.7) 11/25/23 18:40 Albumin 4.6 g/dL (3.5-5.2) 11/25/23 18:40 Globulin 2.8 g/dL (1.3-4.6) 11/25/23 18:40 All radiology interpretation(s) finalized by discharge Discharge Plan Discharge Patient Disposition: Admitted As Inpatient Admit Provider: Ezra Doll Clinical Impression: Hernia, umbilical, Small bowel obstruction, End stage renal disease on dialysis Condition: Stable Coding Level of Care Code ED Mortgage Loan Coordinator for Giana Bell
--- NOTE | 2023-11-25 19:08 | PC.NURSE ---
Patient states that he is unable to provide urine specimen at this time, as he is a dialysis patient and does not normally produce urine.
--- NOTE | 2023-11-25 19:09 | CTR_ITS ---
PROCEDURE INFORMATION: Exam: CT Abdomen And Pelvis Without Contrast Exam date and time: 11/25/2023 7:15 PM Age: 67 years old Clinical indication: Abdominal pain; Prior surgery; Surgery date: 6+ months; Surgery type: Gb; Additional info: Abd pain above umbilicus TECHNIQUE: Imaging protocol: Computed tomography of the abdomen and pelvis without contrast. Radiation optimization: All CT scans at this facility use at least one of these dose optimization techniques: automated exposure control; mA and/or kV adjustment per patient size (includes targeted exams where dose is matched to clinical indication); or iterative reconstruction. COMPARISON: CR XR chest 2V* [id number] 11/16/2022 3:52 PM RADIATION DOSE METRICS: Total DLP (mGy-cm): 883 FINDINGS: Heart: Cardiomegaly. Liver: Normal. No mass. Gallbladder and biliary ducts: Status post cholecystectomy. Pancreas: Normal. No ductal dilation. Spleen: Normal. No splenomegaly. Adrenal glands: Normal. No mass. Kidneys and ureters: Nonspecific bilateral perinephric fat stranding. No hydronephrosis. Stomach and bowel: Small umbilical hernia containing a loop of small bowel. The proximal bowel loops are mildly distended with air-fluid levels and fecalization of stool, concerning for bowel obstruction. Diverticulosis without evidence of diverticulitis. Appendix: No evidence of appendicitis. Intraperitoneal space: Mesenteric edema. No pneumoperitoneum. No free fluid. Vasculature: Moderate diffuse atherosclerotic calcifications. Lymph nodes: Unremarkable. No enlarged lymph nodes. Urinary bladder: Unremarkable as visualized. Reproductive: Prostatomegaly measuring up to 6 cm. Bones/joints: Unremarkable. No acute fracture. Soft tissues: Small umbilical hernia containing a loop of small bowel as described above. Mild fat stranding of the abdominal wall. CT/CT abdomen pelvis wo con [id number] IMPRESSION: 1. Small umbilical hernia containing a loop of small bowel. The proximal bowel loops are mildly distended with air-fluid levels and fecalization of stool, concerning for bowel obstruction. No pneumoperitoneum. 2. Severe prostatomegaly. 3. Diverticulosis without evidence of diverticulitis. COMMENT: THIS REPORT CONTAINS FINDINGS THAT MAY BE CRITICAL TO PATIENT CARE. The exam findings were verbally communicated by me to Mayank Reed via telephone conference at 8:02 PM CDT on 11/25/2023. The findings were acknowledged and understood.
[2023-11-25 19:10] LABS: Alanine Aminotransferase 22 U/L (0-41); Albumin Level 4.6 g/dL (3.5-5.2); Alkaline Phosphatase 76 U/L (40-130); Anion Gap 18.8 (5-19); Aspartate Amino Transferase 15 U/L (0-40); Blood Urea Nitrogen 52 mg/dL (8-23); C Reactive Protein 4.7 mg/L (0.0-4.9); Calcium 10.9 mg/dL (8.5-10.5); Carbon Dioxide 31 mmol/L (22-29); Chloride 92 mmol/L (98-107); Creatinine Clr Calc Pharmacy 12.0494; Globulin 2.8 g/dL (1.3-4.6); Glomerular Filtration Rate 7.6 mL/min (90-130); Glucose 139 mg/dL (65-115); Magnesium 2.4 mg/dL (1.7-2.3); Osmolality Calculated 302 mOsm/kg (285-295); Phosphorus 5.3 mg/dL (2.5-4.5); Potassium 3.8 mmol/L (3.5-5.1); Sodium 138 mmol/L (136-145); Total Bilirubin 0.2 mg/dL (0.15-1.2); Total Protein 7.4 g/dL (6.6-8.7)
--- NOTE | 2023-11-25 20:07 | PC.NURSE ---
Verbal order taken from Dr Reed to change hydralyzine from PO to IV.
--- NOTE | 2023-11-25 20:26 | PC.NURSE ---
Delay in medication administration due to lack of IV access at this time.
--- NOTE | 2023-11-25 20:50 | PC.NURSE ---
Verbal order given by Dr Reed to wait on NG tube until further orders.
--- NOTE | 2023-11-25 21:10 | P.CONIM_ITS ---
Providers/Reason For Consult 2 Consulting Physician/Specialty*: General surgery, emergency medicine Reason for Consult*: Medical comorbidities Attending Physician: Ezra Doll DO Primary Care Provider: LISA Tsai History of Present Illness History of Present Illness Very pleasant 67-year-old gentleman with IDDM, ESRD on HD MWF via right forearm fistula, CAD, diabetic retinopathy, started having some dyspepsia after having early dinner sometime around 3 PM today, started having some periumbilical pain, and a tender lump. Subsequently with nausea, dyspepsia, denies vomiting. Denies fever chills, diarrhea, no hematochezia or melena. CT abdomen pelvis in ER with small umbilical hernia containing loop of small bowel noted on noncontrast study, proximal bowel mildly distended with air-fluid level and fecalization of stool concerning for bowel obstruction. No pneumoperitoneum. Severe prostatomegaly. Diverticulosis without evidence of diverticulitis. Surgery was contacted, admitting him to the hospital with hospitalist consultation with underlying above medical issues. In ER he underwent attempted reduction of the hernia, additionally had gotten up to walk around and states has had a large belch. In ER he is also hypertensive, 206/99. Receiving hydralazine. Review of Systems 2 Const: Denies: fever(s), chills, body aches or malaise ENMT: Denies: throat pain Card: Denies: chest pain, edema, pre-syncope or dyspnea on exertion Resp: Denies: dyspnea, productive cough, change in phlegm color or hemoptysis GI: Reports: abdominal pain, nausea, heartburn and belching; Denies: vomiting, diarrhea, constipation, hematochezia or melena : Denies: flank pain, difficulty urinating, urinary frequency or hematuria Musc: Denies: back pain, joint swelling or joint redness Skin/Breast: Denies: rash or new lesions Neuro: Denies: headache(s) Endo: Denies: polyuria or polydipsia Medications/Allergies Home Medications Medication Instructions Recorded Confirmed Last Taken Type calcitriol 0.5 mcg capsule 0.5 mcg PO DAILY 06/18/20 11/18/23 12/17/20 History carvedilol 12.5 mg tablet 12.5 mg PO BID 06/18/20 11/18/23 12/17/20 History furosemide 80 mg tablet (Lasix) 80 mg PO BID 06/18/20 11/18/23 12/17/20 History aspirin 81 mg tablet,delayed 81 mg PO .3 days a week 06/26/21 11/18/23 Unknown History release blood-glucose meter,continuous #1 ea 07/07/21 11/18/23 Unknown Rx (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) nifedipine 90 mg tablet,extended 30 mg PO DAILY 05/12/22 11/18/23 Unknown History release albuterol sulfate 90 mcg/actuation 2 puff inhalation QID #6.7 grams 11/17/22 11/18/23 Unknown Rx aerosol inhaler (Ventolin HFA) doxycycline hyclate 100 mg tablet 100 mg PO BID 7 days #14 tabs 11/17/22 11/18/23 Unknown Rx rosuvastatin 10 mg tablet 10 mg PO DAILY #30 tabs 01/25/23 11/18/23 Unknown Rx insulin degludec 200 unit/mL (3 26 unit (0.13 mL) SUBCUT DAILY #18 03/11/23 11/18/23 Unknown Rx mL) subcutaneous pen (Tresiba mL FlexTouch U-200 insulin) blood-glucose transmitter (Dexcom #1 ea 08/03/23 11/18/23 Unknown Rx G6 Transmitter device) insulin lispro 100 unit/mL See Rx Instructions .Route 10/18/23 11/18/23 Unknown Rx subcutaneous pen (Humalog KwikPen .COMPLEX #60 mL (U-100) Insulin) amoxicillin 875 mg-potassium 1 tab PO BID #14 tabs 11/06/23 11/18/23 Unknown Rx clavulanate 125 mg tablet tramadol 50 mg tablet 50 - 100 mg (1 - 2 x 50 mg) PO Q6H 11/06/23 11/18/23 Unknown Rx PRN pain #10 tabs blood-glucose sensor (Dexcom G7 #9 ea 11/18/23 11/18/23 Unknown Rx Sensor device) Allergies Allergy/AdvReac Type Severity Reaction Status Date / Time No Known Allergies Allergy Verified 11/18/23 07:55 PFSH Acute 2 PFSH: Medical History Coronary artery disease Diabetic retinopathy 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 Uncontrolled type 1 diabetes mellitus Surgical History AV fistula History of tonsillectomy History of colonoscopy History of cholecystectomy Family History Other Cancer Diabetes Social History Smoking and tobacco/nicotine status: never used tobacco/nicotine Second hand smoke exposure: No Alcohol intake: never Vitals/I&O/Wt Last Vital Signs Temp 97.7 F 11/25/23 18:00 Pulse 68 11/25/23 20:27 Resp 18 11/25/23 18:00 BP 206/99 11/25/23 20:27 Pulse Ox 94 11/25/23 20:27 O2 Del Method Room Air 11/25/23 18:00 Weight last 48 hrs Weight 101.605 kg Physical Exam 2 Const: COMMON NORMALS: patient oriented x3 GENERAL APPEARANCE: cooperative ORIENTATION/CONSCIOUSNESS: Yes awake HENMT: COMMON NORMALS: oropharynx normal Neck/C-Spine: COMMON NORMALS: no JVD Resp: COMMON NORMALS: normal respiratory effort and clear to auscultation bilaterally AUSCULTATION: clear to auscultation bilaterally Cardio: COMMON NORMALS: no JVD, regular rhythm, S1 normal heart sound present, S2 normal heart sound present and No murmurs present (Cardio) RHYTHM: regular rhythm HEART SOUNDS: S1 normal heart sound present and S2 normal heart sound present GI: COMMON NORMALS: Normal to inspection, nondistended, normoactive bowel sounds present, Soft to palpation and non-tender PALPATION: Yes Soft to palpation OTHER: Abdomen with some distention. Extremity: COMMON NORMALS: no joint enlargement and no pedal edema Neuro: COMMON NORMALS: patient oriented x3 Data 11/25/23 18:40 11/25/23 18:40 Micro: Microbiology 11/25/23 19:30 Blood Culture - Preliminary Blood SPECIMEN COLLECTED A&P Assessment and plan (1) Small bowel obstruction: Central abdominal pain, distention, indigestion, heartburn, belching. Acutely worse since this afternoon. Reviewed vitals, CBC, CMP, magnesium, phosphorus, CT abdomen pelvis, ER note, discussed with ER provider, discussed with surgery provider. Being admitted by surgery for further assessment management of small bowel obstruction with finding of small umbilical hernia containing a loop of small bowel with proximal bowel loops mildly dilated with air-fluid levels and fecalization of stool concerning for bowel obstruction confirmed on CT. At current time bowel rest. Started on IV hydration. Attempted reduction in ER after which patient reports some success and improvement in symptoms, so far with improvement in symptoms of painful periumbilical lump. He had also gotten up, and had some irritation with improvement in distention. So far has not passed flatus, no BM. Discussed with him, ER physician, surgery for now we may hold off on NG tube, unless he starts having additional symptoms or vomiting. Ambulate. Pending surgery assessment. (2) Incarcerated umbilical hernia: As above. With at least partial reduction at the moment with improvement in symptoms. Additional assessment management of SBO as above. Pending surgery assessment. (3) Hypertensive urgency: Blood pressure very elevated in ER, 209/106, receiving IV hydralazine dose. Will have IV hydralazine available for him given so far unreliable oral intake. (4) End stage renal disease on dialysis: Discussed with screening specialist, normally gets dialysis through right forearm fistula MWF. Dialysis tomorrow. (5) Coronary artery disease: Without chest pain or pressure, shortness of breath. Cont ASA as suppository until a reliable oral intake reestablished. Plan DM1 with diabetic retinopathy complication with ESRD on dialysis: Normally takes 24 units Lantus daily. Discussed with her for now we will reduce to 18 units. Low-dose sliding scale insulin. Monitor POC glucose. At risk of hyperglycemia but also hypoglycemia with insulin, poor oral intake/SBO as discussed with him. Hypoglycemia protocol. Requesting to confirm home medications, please review once available. Consult Attestations 2 Medical Necessity Statement: Hospitalization needed for assessment of management of incarcerated umbilical hernia with small bowel obstruction in a gentleman with hypertensive urgency, with underlying ESRD on dialysis, DM1 on insulin therapy. and High MDM includes amount and/or complexity of data reviewed/ordered [ previous or external records, resulted lab(s)/test(s), ordered lab(s)/test(s) and other healthcare professional discussion] and described risk of complication, morbidity or mortality of management as documented Diagnoses Small bowel obstruction K56.609 Incarcerated umbilical hernia K42.0 Hypertensive urgency I16.0 End stage renal disease on dialysis N18.6; Z99.2 Coronary artery disease I25.10
[2023-11-25] MEDS: ondansetron 2 mg/ML SDV 2 mL 4 MG IVP (21:15)
[2023-11-25] MEDS: hyDRALAzine 20 mg/mL INJ 1 mL 10 MG IVP ×2 (21:15→21:39)
[2023-11-25] MEDS: sodium chloride 0.9% 1,000 ML 100 ML IV (21:16)
[2023-11-25 21:28] LABS: Bilirubin Urine Negative (Negative); Blood Urine Trace (Negative); Glucose Urine UA Trace (Normal); Ketones Urine Negative (Negative); Leukocyte Esterase Urine Negative (Negative); Nitrate Urine Negative (Negative); Protein Urine 3+ (Negative); Specific Gravity, Urine 1.013 (1.005-1.030); Urine Appearance Clear (CLEAR); Urine Color Yellow (Yellow); Urobilinogen Urine 0.2 mg/dL (Negative); pH Urine 8.5 (5-7)
[2023-11-25 21:30] LABS: Bacteria Urine None Seen /hpf; RBC Urine 0-2 /hpf (0-2); Squamous Epithelial Cell Urine 0-5 /hpf (0-5); WBC Urine 0-5 /hpf (0-5)
--- NOTE | 2023-11-25 21:50 | PC.NURSE ---
Report was called to Florencia GUILLEN on [place]. All questions and concerns were addressed at time of report.
--- NOTE | 2023-11-25 22:15 | PC.NURSE ---
report from ED nurse Neva, NG tube is to be held for now since pt is feeling better after hernia was manually reduced
[2023-11-25 23:08] LABS: Glucose Point of Care 137 mg/dL (70-110)
[2023-11-26] VITALS (7 sets, daily range): BP systolic 146–193; BP diastolic 70–92; PULSE 58–79; RESP 15–18; TEMP 36.7–37.4; O2SAT 93–96
[2023-11-26] MEDS: pantoprazole 40 mg SDV IVP (00:16)
[2023-11-26 05:13] LABS: Basophils % 0.4 %; Eosinophils # 0.4 10^3/uL (0.0-0.8); Eosinophils % 4.7 %; Hematocrit 28.4 % (37-53); Lymphocytes # 1.5 10^3/uL (0.8-4.8); Lymphocytes % 19.3 %; Mean Corpuscular HGB Conc 32.7 g/dL (30-55); Mean Corpuscular Volume 97.6 fl (82-101); Mean Platelet Volume 11.2 fL (7.4-10.4); Monocytes # 0.6 10^3/uL (0.2-0.9); Monocytes % 8.1 %; Neutrophils # 5.24 10^3/uL (1.8-7.7); Neutrophils % 67.2 %; Nucleated Red Blood Cells % 0 %; Platelet Count 227 10^3/cmm (157-399); Red Blood Count 2.91 10^6/uL (3.85-5.65); Red Cell Distribution Width 13.4 % (12.1-15.1); White Blood Count 7.79 10^3/uL (3.29-11.43)
[2023-11-26 05:40] LABS: Slide Review Slide Review Perform
[2023-11-26 07:14] LABS: Anion Gap 20.3 (5-19); Blood Urea Nitrogen 58 mg/dL (8-23); Calcium 9.6 mg/dL (8.5-10.5); Carbon Dioxide 24 mmol/L (22-29); Chloride 97 mmol/L (98-107); Creatinine Clr Calc Pharmacy 10.4929; Glomerular Filtration Rate 6.6 mL/min (90-130); Glucose 215 mg/dL (65-115); Osmolality Calculated 307 mOsm/kg (285-295); Potassium 4.3 mmol/L (3.5-5.1); Sodium 137 mmol/L (136-145)
--- NOTE | 2023-11-26 08:10 | P.HP_ITS ---
Providers/Chief Complaint 2 Admitting Physician: Ezra Doll DO Primary Care Provider: LISA Tsai Chief Complaint: abd pain History of Present Illness Leo Lake is a 68 year old male who presented to hospital with 1 day history of periumbilical abdominal pain. He reports that a few days ago he was lifting some heavy weight and felt a tear in his umbilicus. Then yesterday he felt a bulge in his umbilicus along with pain. Palpation made the pain worse. Nothing made the pain better. CT the abdomen pelvis in the ER showed an umbilical hernia containing a loop of small bowel without a definite obstruction. Hernia was successfully reduced in the ER it appears. However the ER physician was not sure if it was fully reduced. Patient reports that his pain has resolved and has had 2 bowel movements today. He denies any further abdominal pain Review of Systems 2 General: Reports: 10 or more systems reviewed and unremarkable except in HPI and below Medications/Allergies Home Medications Medication Instructions Recorded Confirmed Last Taken Type calcitriol 0.5 mcg capsule 0.5 mcg PO DIRECTED 06/18/20 11/25/23 12/17/20 History carvedilol 12.5 mg tablet 12.5 mg PO BID 06/18/20 11/25/23 12/17/20 History aspirin 81 mg tablet,delayed 81 mg PO DIRECTED 06/26/21 11/25/23 Unknown History release blood-glucose meter,continuous #1 ea 07/07/21 11/26/23 Unknown Rx (Dexcom G6 Adjuster Arbitrator) nifedipine 90 mg tablet,extended 30 mg PO BEDTIME 05/12/22 11/25/23 Unknown History release blood-glucose transmitter (Dexcom #1 ea 08/03/23 11/26/23 Unknown Rx G6 Transmitter device) insulin lispro 100 unit/mL See Rx Instructions .Route 10/18/23 11/25/23 Unknown Rx subcutaneous pen (Humalog KwikPen .COMPLEX #60 mL (U-100) Insulin) blood-glucose sensor (Dexcom G7 #9 ea 11/18/23 11/26/23 Unknown Rx Sensor device) bumetanide 1 mg tablet 1 mg PO BEDTIME 11/25/23 11/25/23 Unknown History insulin degludec 200 unit/mL (3 24 unit SUBCUT DAILY 11/25/23 11/25/23 Unknown History mL) subcutaneous pen (Tresiba FlexTouch U-200 insulin) irbesartan 75 mg tablet 75 mg PO BEDTIME 11/25/23 11/25/23 Unknown History rosuvastatin 10 mg tablet 10 mg PO BEDTIME 11/25/23 11/25/23 Unknown History sevelamer carbonate 800 mg tablet 1,600 mg PO TID 11/26/23 11/26/23 11/24/23 History tramadol 50 mg tablet See Rx Instructions .Route .COMPLEX 11/26/23 11/26/23 Unknown History vit B,C-folic ac 800 mcg-zinc 12.5 1 tab PO QPM 11/26/23 11/26/23 11/24/23 History mg-selen-D3 2,000 unit-vit E tablet (RenaPlex-D) Allergies Allergy/AdvReac Type Severity Reaction Status Date / Time No Known Allergies Allergy Verified 11/18/23 07:55 PFSH Acute 2 PFSH: Medical History Coronary artery disease Diabetic retinopathy 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 Uncontrolled type 1 diabetes mellitus Surgical History AV fistula History of tonsillectomy History of colonoscopy History of cholecystectomy Family History Other Cancer Diabetes Social History Smoking and tobacco/nicotine status: never used tobacco/nicotine Second hand smoke exposure: No Alcohol intake: never Vitals/I&O/Wt Last Vital Signs Temp 98.2 F 11/26/23 07:12 Pulse 68 11/26/23 07:12 Resp 15 11/26/23 07:12 BP 158/77 11/26/23 07:12 Pulse Ox 96 11/26/23 07:12 O2 Del Method Room Air 11/26/23 07:12 O2 Flow Rate 3 11/26/23 04:00 11/25/23 11/26/23 11/26/23 22:59 06:59 14:59 Intake Total 213.333 / 213.333 Balance 213.333 / 213.333 Weight last 48 hrs Weight 220 lb Weight 220 lb Weight 224 lb Physical Exam 2 Narrative: General : Patient is well developed , no acute distress, oriented x3 Head : Normal cephalic, a-traumatic. Ears : Pinnae and external canal are normal. Hearing is normal. Eyes : PERRLA, Sclera and injection are normal. No conjunctival discharge. Nose : Mucous membranes are without erythema. Throat : buccal mucosa is normal, gums are without significant recession or hypertrophy. Lungs : Equal chest rise bilaterally, no use of accessory muscles, trachea is midline. Cor : Rate and rhythm are normal. Abdomen : Soft, ND, NT,, there is a reducible umbilical hernia no g/r/m Extremities : No edema, no cyanosis or clubbing, dorsalis pedis pulses are present bilaterally, non-tender to palpation of calves. Upper extremities are normal bilaterally. Back : non-tender to palpation, no CVA tenderness. Neuro : CN II - XII intact, Upper and lower extremities have equal and full strength Data 11/26/23 04:49 11/26/23 06:38 Micro: Microbiology 11/26/23 04:49 Blood Culture - Preliminary Blood SPECIMEN COLLECTED 11/25/23 19:30 Blood Culture - Preliminary Blood SPECIMEN COLLECTED A&P Assessment and plan (1) Incarcerated umbilical hernia: Plan Hernia was successfully reduced in the ER Regular diet If patient tolerates regular diet I will discharge him home with plans for follow-up in my office to schedule an outpatient laparoscopic repair of umbilical hernia with mesh. Patient does not want to get the procedure done while in the hospital Attestations 2 Medical Necessity Statement*: Patient will be discharged home today if he tolerates regular diet Coding Level of Care Code 66543 Diagnoses Incarcerated umbilical hernia K42.0
--- NOTE | 2023-11-26 10:03 | PC.SOCIAL ---
IMM Update pg 2 of IMM Updated and reviewed w/ patient. Copy provided and copy dated, initialed and placed in chart.
[2023-11-26] MEDS: aspirin 81 mg Chew Tablet PO (10:30)
[2023-11-26] MEDS: insulin lispro 100 unit/1 mL SUBCUT ×2 (10:33→11:58)
[2023-11-26] MEDS: insulin glargine 100 units/1 mL 18 UNIT SUBCUT (10:33)
[2023-11-26 10:36] LABS: Hepatitis B Surface AB 26.3 (11.5-1000); Hepatitis B Surface Antigen Non-Reactive (Nonreactive)
[2023-11-26 11:14] LABS: Glucose Point of Care 228 mg/dL (70-110)
[2023-11-26] MEDS: sodium chloride 0.9% 1,000 ML 100 ML IV (11:58)
--- NOTE | 2023-11-26 12:39 | P.DS_ITS ---
Discharge Providers Date of Admission: 11/25/23 20:39 Date of Discharge: November 26, 2023 Attending Provider at Admission: Ezra Doll DO Attending Provider at Discharge: Ezra Doll DO Primary Care Provider: LISA Tsai Diagnoses at Discharge Discharge Diagnosis (1) Incarcerated umbilical hernia: Status: Acute Reason for Visit Reason for Visit: abd pain Hospital Course Hospital Course This is a very pleasant 68-year-old gentleman who presented to the hospital with abdominal pain and a bulge in his umbilicus. He was diagnosed with an umbilical hernia incarcerated with small bowel. The small bowel was able to be reduced in the ER. He had a bowel movement and was tolerating a diet prior to discharge. He was discharged home in good condition with follow-up and plans for umbilical hernia repair Physical Exam Narrative: General : Patient is well developed , no acute distress, oriented x3 Head : Normal cephalic, a-traumatic. Ears : Pinnae and external canal are normal. Hearing is normal. Eyes : PERRLA, Sclera and injection are normal. No conjunctival discharge. Nose : Mucous membranes are without erythema. Throat : buccal mucosa is normal, gums are without significant recession or hypertrophy. Lungs : Equal chest rise bilaterally, no use of accessory muscles, trachea is midline. Cor : Rate and rhythm are normal. Abdomen : Soft, ND, NT, reducible umbilical hernia, no g/r/m Extremities : No edema, no cyanosis or clubbing, dorsalis pedis pulses are present bilaterally, non-tender to palpation of calves. Upper extremities are normal bilaterally. Back : non-tender to palpation, no CVA tenderness. Neuro : CN II - XII intact, Upper and lower extremities have equal and full strength Discharge Data Studies Completed and Pending Completed Studies During Hospitalization Category Date Time Status CT abdomen pelvis wo con [id number] Stat Cat Scan 11/25/23 19:09 Completed Pending at discharge Category Date Time Status Basic Metabolic Panel AM LABS Lab 11/27/23 04:00 Ordered Basic Metabolic Panel AM LABS Lab 11/28/23 04:00 Ordered Blood Culture Stat Lab 11/25/23 19:30 Results Complete Blood Count w/Auto AM LABS Lab 11/27/23 04:00 Ordered Complete Blood Count w/Auto AM LABS Lab 11/28/23 04:00 Ordered Radiology Impressions Abdomen/Pelvis CT 11/25/23 19:09 IMPRESSION: 1. Small umbilical hernia containing a loop of small bowel. The proximal bowel loops are mildly distended with air-fluid levels and fecalization of stool, concerning for bowel obstruction. No pneumoperitoneum. 2. Severe prostatomegaly. 3. Diverticulosis without evidence of diverticulitis. COMMENT: THIS REPORT CONTAINS FINDINGS THAT MAY BE CRITICAL TO PATIENT CARE. The exam findings were verbally communicated by me to Mayank Reed via telephone conference at 8:02 PM CDT on 11/25/2023. The findings were acknowledged and understood. Laboratory Results WBC 7.79 10^3/uL (3.29-11.43) 11/26/23 04:49 RBC 2.91 10^6/uL (3.85-5.65) L 11/26/23 04:49 Hgb 9.30 g/dL (11.27-16.99) L 11/26/23 04:49 Hct 28.4 % (37-53) L 11/26/23 04:49 MCV 97.6 fl (82-101) D 11/26/23 04:49 MCH 32.0 pg (27-33) 11/26/23 04:49 MCHC 32.7 g/dL (30-55) 11/26/23 04:49 RDW 13.4 % (12.1-15.1) 11/26/23 04:49 Plt Count 227 10^3/cmm (157-399) 11/26/23 04:49 MPV 11.2 fL (7.4-10.4) H 11/26/23 04:49 Neut % (Auto) 67.2 % 11/26/23 04:49 Lymph % (Auto) 19.3 % 11/26/23 04:49 [place]aines % (Auto) 8.1 % 11/26/23 04:49 Eos % (Auto) 4.7 % 11/26/23 04:49 Baso % (Auto) 0.4 % 11/26/23 04:49 Neut # (Auto) 5.24 10^3/uL (1.8-7.7) 11/26/23 04:49 Lymph # (Auto) 1.5 10^3/uL (0.8-4.8) 11/26/23 04:49 [place]aines # (Auto) 0.6 10^3/uL (0.2-0.9) 11/26/23 04:49 Eos # (Auto) 0.4 10^3/uL (0.0-0.8) 11/26/23 04:49 Baso # (Auto) 0.0 10^3/uL (0.0-0.1) 11/26/23 04:49 Nucleated RBC % (auto) 0 % 11/26/23 04:49 Nucleated RBCs # 0.0 /100WBC 11/26/23 04:49 Sodium 137 mmol/L (136-145) 11/26/23 06:38 Potassium 4.3 mmol/L (3.5-5.1) 11/26/23 06:38 Chloride 97 mmol/L (98-107) L 11/26/23 06:38 Carbon Dioxide 24 mmol/L (22-29) 11/26/23 06:38 Anion Gap 20.3 (5-19) H 11/26/23 06:38 BUN 58 mg/dL (8-23) H 11/26/23 06:38 Creatinine 8.2 mg/dL (0.7-1.2) H* 11/26/23 06:38 GFR Calculation 6.6 mL/min (90-130) L 11/26/23 06:38 Glucose 215 mg/dL (65-115) H 11/26/23 06:38 POC Glucose 228 mg/dL (70-110) H 11/26/23 06:33 Calculated Osmolality 307 mOsm/kg (285-295) H 11/26/23 06:38 Lactic Acid 1.0 mmol/L (0.5-2.2) 11/25/23 18:40 Calcium 9.6 mg/dL (8.5-10.5) 11/26/23 06:38 Phosphorus 5.3 mg/dL (2.5-4.5) H 11/25/23 18:40 Magnesium 2.4 mg/dL (1.7-2.3) H 11/25/23 18:40 Total Bilirubin 0.2 mg/dL (0.15-1.2) 11/25/23 18:40 AST 15 U/L (0-40) 11/25/23 18:40 ALT 22 U/L (0-41) 11/25/23 18:40 Alkaline Phosphatase 76 U/L (40-130) 11/25/23 18:40 C-Reactive Protein 4.7 mg/L (0.0-4.9) 11/25/23 18:40 Total Protein 7.4 g/dL (6.6-8.7) 11/25/23 18:40 Albumin 4.6 g/dL (3.5-5.2) 11/25/23 18:40 Globulin 2.8 g/dL (1.3-4.6) 11/25/23 18:40 Urine Color Yellow (Yellow) 11/25/23 21:20 Urine Appearance Clear (CLEAR) 11/25/23 21:20 Urine pH 8.5 (5-7) A 11/25/23 21:20 Ur Specific [place] 1.013 (1.005-1.030) 11/25/23 21:20 Urine Protein 3+ (Negative) A 11/25/23 21:20 Urine Glucose (UA) Trace (Normal) H 11/25/23 21:20 Urine Ketones Negative (Negative) 11/25/23 21:20 Urine Blood Trace (Negative) A 11/25/23 21:20 Urine Nitrate Negative (Negative) 11/25/23 21:20 Urine Bilirubin Negative (Negative) 11/25/23 21:20 Urine Urobilinogen 0.2 mg/dL (Negative) 11/25/23 21:20 Ur Leukocyte Esterase Negative (Negative) 11/25/23 21:20 Urine RBC 0-2 /hpf (0-2) 11/25/23 21:20 Urine WBC 0-5 /hpf (0-5) 11/25/23 21:20 Ur Squamous Epith Cells 0-5 /hpf (0-5) 11/25/23 21:20 Amorphous Sediment Not Reportable 11/25/23 21:20 Urine Bacteria None seen /hpf (NONE) 11/25/23 21:20 Hyaline Casts 0.40 /lpf 11/25/23 21:20 Hep Bs Antigen Non-reactive (Nonreactive) 11/26/23 09: Hep Bs Antibody 26.3 (11.5-1000) 11/26/23 09:22 Procedures Performed None Vitals Last Vital Signs Temp 98.1 F 11/26/23 11:22 Pulse 74 11/26/23 11:22 Resp 16 11/26/23 11:22 BP 146/70 11/26/23 11:22 Pulse Ox 93 11/26/23 11:22 O2 Del Method Room Air 11/26/23 11:22 O2 Flow Rate 3 11/26/23 04:00 Discharge Plan Discharge Patient Disposition: Home Condition: Stable Prescriptions: Continued calcitriol 0.5 mcg capsule 0.5 mcg PO DIRECTED Rx Instructions: Wednesday, Wednesday, Wednesday with dialysis. carvedilol 12.5 mg tablet 12.5 mg PO BID Rx Instructions: must administer with a meal/food nifedipine 90 mg tablet extended release 30 mg PO BEDTIME aspirin 81 mg tablet,delayed release (DR/EC) 81 mg PO DIRECTED Rx Instructions: Wednesday, Wednesday, and Wednesday with dialysis (DME) Dexcom G7 Sensor Device See Rx Instructions .Route Qty: 9 1RF Rx Instructions: As directed (DME) Dexcom G6 Armature Winder Repair Helper Misc See Rx Instructions .Route Qty: 1 0RF Rx Instructions: Check BS 4-6 times a day. (DME) Dexcom G6 Transmitter Device See Rx Instructions .Route Qty: 1 3RF Rx Instructions: Change every 90 days. insulin lispro [Humalog KwikPen Insulin] 100 unit/mL insulin pen See Rx Instructions .ROUTE .COMPLEX Qty: 60 0RF Dose Instruction: INJECT 20 units SUBCUTANEOUSLY THREE TIMES DAILY. max DAILY DOSE: 60 units Rx Instructions: Sliding scale with meals irbesartan 75 mg Tablet 75 mg PO BEDTIME bumetanide 1 mg Tablet 1 mg PO BEDTIME rosuvastatin 10 mg tablet 10 mg PO BEDTIME Tresiba FlexTouch U-200 200 unit/mL (3 mL) insulin pen 24 unit SUBCUT DAILY Rx Instructions: in the morning tramadol 50 mg tablet See Rx Instructions .ROUTE .COMPLEX Rx Instructions: TAKE 1-2 TABLETS BY MOUTH EVERY 6 HOURS NEEDED FOR PAIN. sevelamer carbonate 800 mg tablet 1,600 mg PO TID RenaPlex-D 800 mcg-12.5 mg -2,000 unit tablet 1 tab PO QPM Referrals: Yasmin Kohler FNP [Primary Care Provider] - 4-7 days Ezra Doll DO [Physician] - 4-7 days Discharge Diet: Advance as tolerated Discharge Activity: Resume usual activity Patient Instructions: Opioid Safety Activity Restrictions/Additional Instructions: None Discharge Attestations Time Spent in Discharge Care*: less than 30 min Quality Metrics Clinical Quality Measures [ No reported AMI, CVA or VTE this stay] Coding Level of Care Code Acute Code for Chg Fwd Diagnoses Incarcerated umbilical hernia K42.0
--- NOTE | 2023-11-26 13:48 | PM.CONSULT ---
Providers/Reason For Consult Consulting Physician/Specialty*: duong nephrology Reason for Consult*: esrd Attending Physician: Ezra Doll DO Primary Care Provider: LISA Tsai History of Present Illness History of Present Illness Leo Lake is a 68 year old male With past medical history of end-stage renal disease on dialysis per Wednesday, diabetes, coronary artery disease, hypertension presented region with IV nausea and dyspepsia symptoms. Denies any fevers or chills. CT scan of the abdomen in the ER showed umbilical hernia containing loops of small bowel. Patient was admitted to general surgery for observation. Hernia was successfully reduced in the ER . Patient is on dialysis per Wednesday of your schedule. Patient currently denies any complaints Review of Systems Narrative: negative Medications/Allergies Home Medications Medication Instructions Recorded Confirmed Last Taken Type calcitriol 0.5 mcg capsule 0.5 mcg PO DIRECTED 06/18/20 11/25/23 12/17/20 History carvedilol 12.5 mg tablet 12.5 mg PO BID 06/18/20 11/25/23 12/17/20 History aspirin 81 mg tablet,delayed 81 mg PO DIRECTED 06/26/21 11/25/23 Unknown History release blood-glucose meter,continuous #1 ea 07/07/21 11/26/23 Unknown Rx (Dexcom G6 Mobile Heavy Equipment Operator) nifedipine 90 mg tablet,extended 30 mg PO BEDTIME 05/12/22 11/25/23 Unknown History release blood-glucose transmitter (Dexcom #1 ea 08/03/23 11/26/23 Unknown Rx G6 Transmitter device) insulin lispro 100 unit/mL See Rx Instructions .Route 10/18/23 11/25/23 Unknown Rx subcutaneous pen (Humalog KwikPen .COMPLEX #60 mL (U-100) Insulin) blood-glucose sensor (Dexcom G7 #9 ea 11/18/23 11/26/23 Unknown Rx Sensor device) bumetanide 1 mg tablet 1 mg PO BEDTIME 11/25/23 11/25/23 Unknown History insulin degludec 200 unit/mL (3 24 unit SUBCUT DAILY 11/25/23 11/25/23 Unknown History mL) subcutaneous pen (Tresiba FlexTouch U-200 insulin) irbesartan 75 mg tablet 75 mg PO BEDTIME 11/25/23 11/25/23 Unknown History rosuvastatin 10 mg tablet 10 mg PO BEDTIME 11/25/23 11/25/23 Unknown History sevelamer carbonate 800 mg tablet 1,600 mg PO TID 11/26/23 11/26/23 11/24/23 History tramadol 50 mg tablet See Rx Instructions .Route .COMPLEX 11/26/23 11/26/23 Unknown History vit B,C-folic ac 800 mcg-zinc 12.5 1 tab PO QPM 11/26/23 11/26/23 11/24/23 History mg-selen-D3 2,000 unit-vit E tablet (RenaPlex-D) Allergies Allergy/AdvReac Type Severity Reaction Status Date / Time No Known Allergies Allergy Verified 11/18/23 07:55 Current Medications Generic Name Dose Route Start Last Admin Trade Name Maheshq PRN Reason Stop Dose Admin Aspirin 81 mg 11/26/23 09:00 11/26/23 10:30 Aspirin 81 Mg Chew Tablet PO 81 mg DAILY MINNA Administration Sodium Chloride 1,000 mls @ 100 mls/hr 11/25/23 20:30 11/26/23 11:58 Sodium Chloride 0.9% IV 100 mls/hr .Q10H MINNA Administration Insulin Glargine 18 unit 11/26/23 09:00 11/26/23 10:33 Insulin Glargine 100 Units/1 Ml SUBCUT 18 unit DAILY MINNA Administration Insulin Human Lispro 0 unit 11/25/23 22:06 11/26/23 11:58 Insulin Lispro 100 Unit/1 Ml SUBCUT 8 unit WM&BEDTIME MINNA Administration Protocol Pantoprazole Sodium 40 mg 11/25/23 22:15 11/26/23 00:16 Pantoprazole 40 Mg Sdv IVP 40 mg Q24H MINNA Administration PFSH Acute PFSH: Medical History Coronary artery disease Diabetic retinopathy 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 Uncontrolled type 1 diabetes mellitus Surgical History AV fistula History of tonsillectomy History of colonoscopy History of cholecystectomy Family History Other Cancer Diabetes Social History Smoking and tobacco/nicotine status: never used tobacco/nicotine Second hand smoke exposure: No Alcohol intake: never Vitals/I&O/Wt Last Vital Signs Temp 98.1 F 11/26/23 11:22 Pulse 74 11/26/23 11:22 Resp 16 11/26/23 11:22 BP 146/70 11/26/23 11:22 Pulse Ox 93 11/26/23 11:22 O2 Del Method Room Air 11/26/23 11:22 O2 Flow Rate 3 11/26/23 04:00 11/25/23 11/26/23 11/26/23 22:59 06:59 14:59 Intake Total 213.333 / 892.433 6531.667 / 1026.667 Balance 213.333 / 839.238 5790.667 / 1026.667 Weight last 48 hrs Weight 99.79 kg Weight 99.79 kg Weight 101.605 kg Physical Exam Narrative: Patient is awake alert no distress Is getting HD Neck S1-S2 regular rate and rhythm per report Lungs clear No edema Data 11/26/23 04:49 11/26/23 06:38 Micro: Microbiology 11/26/23 04:49 Blood Culture - Preliminary Blood SPECIMEN COLLECTED 11/25/23 19:30 Blood Culture - Preliminary Blood SPECIMEN COLLECTED A&P Assessment and plan (1) End stage renal disease on dialysis: 1. End-stage renal disease: On MWF schedule as outpatient, HD today, ultrafiltration as tolerated 2. Hypertension: Resume home medications 3. Anemia: Hemoglobin currently, will order JAYLEN 4. Umbilical hernia with bowel loops , was reduced in the ER 5. h/o DM Consult Attestations Medical Necessity Statement: per mayelin Coding Level of Care Code Acute Code for Chg Fwd Diagnoses End stage renal disease on dialysis N18.6; Z99.2
[2023-11-27 03:31] LABS: Bacillus cereus group Not Detected (NOT DETECT); Bacillus subtillis group Not Detected (NOT DETECT); Corynebacterium Not Detected (NOT DETECT); Cutibacterium acnes (P.acnes) Not Detected (NOT DETECT); Enterococcus Not Detected (NOT DETECT); Enterococcus faecalis Not Detected (NOT DETECT); Enterococcus faecium Not Detected (NOT DETECT); Lactobacillus species Not Detected (NOT DETECT); Listeria Not Detected (NOT DETECT); Listeria monocytogenes Not Detected (NOT DETECT); Micrococcus Not Detected (NOT DETECT); Pan Candida Not Detected (NOT DETECT); Pan Gram-Negative Not Detected (NOT DETECT); Staphylococcus epidermidis Detected (NOT DETECT); Staphylococcus lugdunensis Not Detected (NOT DETECT); Staphylococcus species Detected (NOT DETECT); Streptococcus agalactiae Not Detected (NOT DETECT); Streptococcus anginosus group Not Detected (NOT DETECT); Streptococcus pneumoniae Not Detected (NOT DETECT); Streptococcus pyogenes Not Detected (NOT DETECT); Streptococcus species Not Detected (NOT DETECT); mecA Not Detected (NOT DETECT); mecC Not Detected (NOT DETECT)
== END 2023-11-26 17:56 | disposition home or self-care (01) ==
LOC: ER 20:26 → MEDSURG 20:51
PROVIDERS: Emergency Medicine; Hospitalist; Internal Medicine; Admitting Provider Surgery; Emergency Provider Emergency Medicine; PCP Nurse Practitioner; Visit Provider Surgery
DX: K42.0 Umbilical hernia with obstruction, without gangrene (principal); E11.22 Type 2 diabetes mellitus with diabetic chronic kidney disease; I12.0 Hypertensive chronic kidney disease with stage 5 chronic kidney disease or end stage renal disease; N18.6 End stage renal disease; Z99.2 Dependence on renal dialysis; D63.1 Anemia in chronic kidney disease; Z79.82 Long term (current) use of aspirin; Z79.4 Long term (current) use of insulin; I25.10 Atherosclerotic heart disease of native coronary artery without angina pectoris
CPT/HCPCS: 36415; 36416; 74176; 80048; 80053; 81001; 82962; 83605; 83735; 84100; 85025; 86140; 86706; 87040; 87077; 87150; 87186; 87205; 87340; 90935; 96361; 96372; 96374; 96375; 96376; 99285; G0378; J0360; J1815; J2405; J2470; J7030

== ENCOUNTER 2023-12-29 23:38 | Emergency (ER) | payer OTHER, MEDICARE, SELFPAY ==
[2023-12-29 23:51] VITALS: BP 155/91; PULSE 92; RESP 16; TEMP 36.4; O2SAT 94; BMI 31.2
--- NOTE | 2023-12-30 00:10 | XRR_ITS ---
PROCEDURE INFORMATION: Exam: XR Right Hip Exam date and time: 12/30/2023 12:23 AM Age: 68 years old Clinical indication: Injury or trauma; Fall; Sprain or strain; Right; Hip and pelvic region; Additional info: Hip pain TECHNIQUE: Imaging protocol: Radiologic exam of the right hip. Views: 1 view hip with pelvis when performed. COMPARISON: CT abdomen pelvis wo con [id number] 11/25/2023 7:15 PM FINDINGS: Bones/joints: Unremarkable. No acute fracture. Soft tissues: Unremarkable. XR/XR hip RT 2-3V wo/w pel* [id number] IMPRESSION: No acute findings.
--- NOTE | 2023-12-30 00:37 | ED_ITS ---
HPI - Extremity Problem General: Chief complaint: Extremity Injury, Lower Stated complaint: right hip injury Time Seen by Provider: 12/29/23 23:55 History of Present Illness: 68-year-old man who presents emergency r oom with right hip pain. He said he had a fall about 3 weeks ago and initially the pain was not that bad but then its gotten worse. He says he has pain in his right lateral and posterior hip that radiates down his leg. Says is worse when he lays down to sleep and is better when he walks. No saddle numbness, no urinary retention or incontinence, no focal motor deficit, no sensory deficit. no recent fever. no cough. no shortness of breath. no chest pain. no abdominal pain. no nausea or vomiting. no dysuria. no altered mental status. no edema. Related Data Home Medications Medication Instructions Recorded Confirmed calcitriol 0.5 mcg capsule 0.5 mcg PO DIRECTED 06/18/20 11/25/23 carvedilol 12.5 mg tablet 12.5 mg PO BID 06/18/20 11/25/23 aspirin 81 mg tablet,delayed 81 mg PO DIRECTED 06/26/21 11/25/23 release nifedipine 90 mg tablet,extended 30 mg PO BEDTIME 05/12/22 11/25/23 release bumetanide 1 mg tablet 1 mg PO BEDTIME 11/25/23 11/25/23 insulin degludec 200 unit/mL (3 24 unit SUBCUT DAILY 11/25/23 11/25/23 mL) subcutaneous pen (Tresiba FlexTouch U-200 insulin) irbesartan 75 mg tablet 75 mg PO BEDTIME 11/25/23 11/25/23 rosuvastatin 10 mg tablet 10 mg PO BEDTIME 11/25/23 11/25/23 sevelamer carbonate 800 mg tablet 1,600 mg PO TID 11/26/23 11/26/23 tramadol 50 mg tablet See Rx Instructions .Route .COMPLEX 11/26/23 11/26/23 vit B,C-folic ac 800 mcg-zinc 12.5 1 tab PO QPM 11/26/23 11/26/23 mg-selen-D3 2,000 unit-vit E tablet (RenaPlex-D) Previous Rx's Medication Instructions Recorded blood-glucose meter,continuous #1 ea 07/07/21 (Dexcom G6 Refinish Technician) blood-glucose transmitter (Dexcom #1 ea 08/03/23 G6 Transmitter device) insulin lispro 100 unit/mL See Rx Instructions .Route 10/18/23 subcutaneous pen (Humalog KwikPen .COMPLEX #60 mL (U-100) Insulin) blood-glucose sensor (Dexcom G7 #9 ea 11/18/23 Sensor device) cyclobenzaprine 5 mg tablet 5 mg PO BEDTIME PRN muscle spasm 12/30/23 #10 tabs diclofenac sodium 50 mg 50 mg PO BID PRN pain #14 tabs 12/30/23 tablet,delayed release prednisone 20 mg tablet 60 mg (3 x 20 mg) PO DAILY #20 tabs 12/30/23 tramadol 50 mg tablet 50 mg PO Q8H PRN pain #10 tabs 12/30/23 Allergies Allergy/AdvReac Type Severity Reaction Status Date / Time No Known Allergies Allergy Verified 11/18/23 07:55 Review of Systems Narrative: Constitutional symptoms: Negative except as documented in HPI. Skin symptoms: Negative except as documented in HPI. Eye symptoms: Negative except as documented in HPI. ENMT symptoms: Negative except as documented in HPI. Respiratory symptoms: Negative except as documented in HPI. Cardiovascular symptoms: Negative except as documented in HPI. Gastrointestinal symptoms: Negative except as documented in HPI. Genitourinary symptoms: Negative except as documented in HPI. Musculoskeletal symptoms: Negative except as documented in HPI. Neurologic symptoms: Negative except as documented in HPI. Psychiatric symptoms: Negative except as documented in HPI. Endocrine symptoms: Negative except as documented in HPI. 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 Skin: warm and dry Head: Normocephalic Neck: Trachea midline Eye: Extraocular movements are intact. Ears, nose, mouth and throat: Oral mucosa moist Respiratory: Respirations are non-labored Musculoskeletal: Normal ROM Neurological: Alert and oriented, No focal neurological deficit observed. Psychiatric: Cooperative, appropriate mood & affect. Course Vital Signs: Vital signs: Vital Signs Temperature 97.5 F L 12/29/23 23:51 Pulse Rate 92 12/29/23 23:51 Respiratory Rate 16 12/29/23 23:51 Blood Pressure 155/91 12/29/23 23:51 Pulse Oximetry 94 12/29/23 23:51 Oxygen Delivery Me thod Room Air 12/29/23 23:51 MDM - Extremity (Nontraumatic) Medical Decision Making X-ray of the right hip and pelvis: No obvious fractures or dislocations. Films were interpreted by myself the emergency room provider and pending final radiology review. Assessment and plan: Sciatica, hip pain ? IM Decadron in the emergency room. [place] and Flexeril for home tonight dispensed. - Discharged home - Discussed plan with patient. Answered any questions. - Evaluation and treatment of this problem were appropriate in the emergency setting. XR interpretation done by ED provider, pending radiology final review Discharge Plan Discharge Patient Disposition: Home Clinical Impression: Sciatica Condition: Stable Prescriptions: New prednisone 20 mg tablet 60 mg PO DAILY Qty: 20 0RF Rx Instructions: 3 tabs (60 mg) x 3 days. 2 tabs (40 mg) x 3 days. 1 tab (20 mg) x 3 days. 1/2 tab (10 mg) x 4 days tramadol 50 mg tablet 50 mg PO Q8H PRN (Reason: pain) Qty: 10 0RF diclofenac sodium 50 mg tablet,delayed release (DR/EC) 50 mg PO BID PRN (Reason: pain) Qty: 14 0RF cyclobenzaprine 5 mg tablet 5 mg PO BEDTIME PRN (Reason: muscle spasm) Qty: 10 0RF No Action calcitriol 0.5 mcg capsule 0.5 mcg PO DIRECTED Rx Instructions: Wednesday, Wednesday, Wednesday with dialysis. carvedilol 12.5 mg tablet 12.5 mg PO BID Rx Instructions: must administer with a meal/food nifedipine 90 mg tablet extended release 30 mg PO BEDTIME aspirin 81 mg tablet,delayed release (DR/EC) 81 mg PO DIRECTED Rx Instructions: Wednesday, Wednesday, and Wednesday with dialysis (DME) Dexcom G7 Sensor Device See Rx Instructions .Route Qty: 9 1RF Rx Instructions: As directed (DME) Dexcom G6 Refinish Technician Misc See Rx Instructions .Route Qty: 1 0RF Rx Instructions: Check BS 4-6 times a day. (DME) Dexcom G6 Transmitter Device See Rx Instructions .Route Qty: 1 3RF Rx Instructions: Change every 90 days. insulin lispro [Humalog KwikPen Insulin] 100 unit/mL insulin pen See Rx Instructions .ROUTE .COMPLEX Qty: 60 0RF Dose Instruction: INJECT 20 units SUBCUTANEOUSLY THREE TIMES DAILY. max DAILY DOSE: 60 units Rx Instructions: Sliding scale with meals irbesartan 75 mg Tablet 75 mg PO BEDTIME bumetanide 1 mg Tablet 1 mg PO BEDTIME rosuvastatin 10 mg tablet 10 mg PO BEDTIME Tresiba FlexTouch U-200 200 unit/mL (3 mL) insulin pen 24 unit SUBCUT DAILY Rx Instructions: in the morning tramadol 50 mg tablet See Rx Instructions .ROUTE .COMPLEX Rx Instructions: TAKE 1-2 TABLETS BY MOUTH EVERY 6 HOURS NEEDED FOR PAIN. sevelamer carbonate 800 mg tablet 1,600 mg PO TID RenaPlex-D 800 mcg-12.5 mg -2,000 unit tablet 1 tab PO QPM Discharge Orders: Discharge ED (Routine); Ordered 12/30/23 Ordered By: Vickie Campbell Referrals: Yasmin Kohler, CENTRIFUGE OPERATOR [Primary Care Provider] - Discharge Diet: Usual diet Discharge Activity: Increase activity as tolerated Patient Instructions: Sciatica (ED), Pain Management Activity Restrictions/Additional Instructions: Thank you for choosing [facility] for your healthcare needs today. Please realize this is an emergency room and that we are providing you with a medical screening exam and this may not be complete and all inclusive of all the testing and or work up that you may need to determine your ailment or severity of your illness. You have been screened and evaluated and felt safe for discharge. Health conditions do change or evolve sometimes and as such it is important that you follow up with your Primary Doctor to be re checked, 3-5 days is a general good time frame for follow up. You are always welcome to return to the ED for re assessment if your symptoms are worsening or you have new concerns Coding Level of Care Code ED Spool Salvager for Giana Bell
[2023-12-30] MEDS: dexamethasone 10 mg/mL INJ IM (00:51)
[2023-12-30] MEDS: HYDROcodone-acetaminophen 5-325 mg Tablet 1 TAB PO (00:51)
[2023-12-30] MEDS: cyclobenzaprine 10 mg Tablet PO (00:51)
[2023-12-30 01:03] VITALS: BP 142/87; PULSE 87; O2SAT 96
== END 2023-12-30 01:06 | disposition home or self-care (01) ==
PROVIDERS: Emergency Provider Emergency Medicine; PCP Nurse Practitioner
DX: M54.31 Sciatica, right side (principal)
CPT/HCPCS: 73502; 96372; 99284; J1100

== ENCOUNTER → 2024-01-04 12:57 | Outpatient (BNVA) | payer OTHER, SELFPAY | PROVIDERS: PCP Nurse Practitioner; Referring Provider Nurse Practitioner; Visit Provider Surgery | DX: K42.0 Umbilical hernia with obstruction, without gangrene (principal); Z90.49 Acquired absence of other specified parts of digestive tract | CPT/HCPCS: 99203 ==

== ENCOUNTER 2024-01-29 18:10 | Emergency (ER) | payer OTHER, MEDICARE, SELFPAY ==
[2024-01-29 18:21] VITALS: BP 200/106; PULSE 71; RESP 16; TEMP 36.8; O2SAT 97; BMI 28.7
--- NOTE | 2024-01-29 18:50 | CTR_ITS ---
PROCEDURE INFORMATION: Exam: CT Abdomen And Pelvis With Contrast Exam date and time: 01/29/2024 7:09 PM Age: 68 years old Clinical indication: Abdominal pain; Prior surgery; Surgery date: 6+ months; Surgery type: Gb; Patient HX: C/O periumbilical pain. History of ventral hernia and esrd. ; Additional info: Periumbilical pain HX of hernia TECHNIQUE: Imaging protocol: Computed tomography of the abdomen and pelvis with contrast. Radiation optimization: All CT scans at this facility use at least one of these dose optimization techniques: automated exposure control; mA and/or kV adjustment per patient size (includes targeted exams where dose is matched to clinical indication); or iterative reconstruction. Contrast material: OMNI 350; Contrast volume: 80 ml; Contrast route: INTRAVENOUS (IV); COMPARISON: CT abdomen pelvis wo con [id number] 11/25/2023 7:15 PM RADIATION DOSE METRICS: Total DLP (mGy-cm): 812.43 FINDINGS: Liver: The liver is enlarged, measuring 20.5 cm craniocaudal. No suspicious liver lesion. Gallbladder and biliary ducts: Status post cholecystectomy. Pancreas: Cystic structure along the anterior pancreatic body measures 1.5 x 2.0 x 1.4 cm (series 3, image 22 and series 6, image 34). Ill-defined hypodensity in the region of the uncinate process measures 1.8 x 1.6 cm in axial dimensions (series 3, image 28). Cystic focus in the pancreatic head adjacent to the distal common bile duct measures 2.4 x 1.8 cm, similar to prior. This may be contiguous with the common bile duct as seen on series 5, image 36. Spleen: Normal. No splenomegaly. Adrenal glands: Normal. No mass. Kidneys and ureters: Normal. No hydronephrosis. Stomach and bowel: Colonic diverticulosis without evidence of acute diverticulitis. Several borderline dilated small bowel loops are seen within the lower abdomen and pelvis which are also fluid-filled. No definite transition point is visualized. However, the more distal small bowel loops are decompressed. Appendix: No evidence of appendicitis. Intraperitoneal space: Unremarkable. No free air. No significant fluid collection. Vasculature: Mild atherosclerotic aortic calcifications. No aortic aneurysm. Lymph nodes: Unremarkable. No enlarged lymph nodes. Urinary bladder: Circumferential bladder wall thickening, likely from chronic outlet obstruction. Reproductive: The prostate is enlarged, measuring 6.2 cm transverse. Vas deferens calcifications. Scattered penile calcifications likely along the course of the corpora cavernosa. Bones/joints: Degenerative changes of the visualized spine. No acute or aggressive osseous lesion. Soft tissues: Moderate-sized fat containing umbilical hernia with mild fat stranding. Previously seen small bowel loop in the hernia defect no longer visualized. Mild fat stranding of the anterior abdominal wall is similar to prior. CT/CT abdomen pelvis w con* [id number] IMPRESSION: 1. Borderline dilated, fluid-filled small bowel loops may represent developing adynamic ileus. While there is no definite transition point, a low-grade small bowel obstruction is also possible. Underlying enteritis not excluded. Consider radiographic follow-up to re-evaluate as clinically warranted. 2. Fat containing umbilical hernia no longer contains a small bowel loop as was seen previously. However, there is mild fat stranding, and developing fat necrosis is possible. 3. Ill-defined hypodensity in the uncinate process of the pancreas is incompletely evaluated. Underlying neoplasm not excluded. Recommend MRI abdomen without and with contrast for further evaluation. 4. Several pancreatic cystic foci are incompletely characterized. These may represent side branch IPMNs. As the dominant cystic focus in the pancreatic head appears contiguous with the common bile duct, this may also represent a choledochocele. These could be further assessed at time of MRI. 5. Prostatomegaly. Correlate with PSA levels. 6. Colonic diverticulosis without acute diverticulitis. 7. Penile calcifications can be seen with end-stage renal disease. Peyronie disease is a differential consideration.
[2024-01-29 19:06] LABS: Basophils # 0.1 10^3/uL (0.0-0.1); Basophils % 0.7 %; Eosinophils # 0.6 10^3/uL (0.0-0.8); Eosinophils % 8.5 %; Hematocrit 34.5 % (37-53); Lymphocytes # 1.2 10^3/uL (0.8-4.8); Lymphocytes % 17.5 %; Mean Corpuscular HGB Conc 32.2 g/dL (30-55); Mean Corpuscular Volume 96.4 fl (82-101); Mean Platelet Volume 9.2 fL (7.4-10.4); Monocytes # 0.7 10^3/uL (0.2-0.9); Monocytes % 10.2 %; Neutrophils # 4.39 10^3/uL (1.8-7.7); Nucleated Red Blood Cells % 0 %; Platelet Count 310 10^3/cmm (157-399); Red Blood Count 3.58 10^6/uL (3.85-5.65); Red Cell Distribution Width 14.7 % (12.1-15.1); White Blood Count 6.97 10^3/uL (3.29-11.43)
[2024-01-29] MEDS: iohexol 350 mg/mL 500 mL Btl (per mL) IV (19:13)
[2024-01-29] MEDS: ondansetron 2 mg/ML SDV 2 mL 4 MG IVP (19:25)
[2024-01-29 19:27] VITALS: RESP 16; O2SAT 93
[2024-01-29] MEDS: morphine 4 mg/mL SDV 1 mL IVP (19:27)
[2024-01-29 19:34] LABS: Alanine Aminotransferase 20 U/L (0-41); Alkaline Phosphatase 62 U/L (40-130); Aspartate Amino Transferase 15 U/L (0-40); Blood Urea Nitrogen 35 mg/dL (8-23); Calcium 9.9 mg/dL (8.5-10.5); Carbon Dioxide 32 mmol/L (22-29); Chloride 95 mmol/L (98-107); Creatinine Clr Calc Pharmacy 13.2761; Globulin 2.6 g/dL (1.3-4.6); Glomerular Filtration Rate 9.1 mL/min (90-130); Glucose 159 mg/dL (65-115); Lipase 48 U/L (13-60); Osmolality Calculated 297 mOsm/kg (285-295); Sodium 138 mmol/L (136-145); Total Bilirubin 0.2 mg/dL (0.15-1.2); Total Protein 6.6 g/dL (6.6-8.7)
--- NOTE | 2024-01-29 19:34 | ED_ITS ---
HPI - Abdominal Pain 2 General: Chief Complaint: Abdominal Pain Stated Complaint: abd pain Time Seen by Provider: 01/29/24 18:36 History of Present Illness: Six 8-year-old male with a history of periumbilical hernia. He was seen in the antibiotic with periumbilical pain, and what seemed to be a developing small bowel obstruction. Hernia was able to be reduced in a closed fashion in the ER, and then patient improved and was allowed home after short stay. He had not had problems until today, when he developed pain in while shopping in [place]. Pain became significant, so he presents here. Pain at this point is improved, although still present. No vomiting. He is nauseated no fever, no blood in the stool. He is a dialysis patient had dialysis yesterday. Related Data Home Medications Medication Instructions Recorded Confirmed calcitriol 0.5 mcg capsule 0.5 mcg PO DIRECTED 06/18/20 01/04/24 carvedilol 12.5 mg tablet 12.5 mg PO BID 06/18/20 01/04/24 aspirin 81 mg tablet,delayed 81 mg PO DIRECTED 06/26/21 01/04/24 release nifedipine 90 mg tablet,extended 30 mg PO BEDTIME 05/12/22 01/04/24 release bumetanide 1 mg tablet 1 mg PO BEDTIME 11/25/23 01/04/24 irbesartan 75 mg tablet 75 mg PO BEDTIME 11/25/23 01/04/24 rosuvastatin 10 mg tablet 10 mg PO BEDTIME 11/25/23 01/04/24 sevelamer carbonate 800 mg tablet 1,600 mg PO TID 11/26/23 01/04/24 tramadol 50 mg tablet See Rx Instructions .Route .COMPLEX 11/26/23 01/04/24 vit B,C-folic ac 800 mcg-zinc 12.5 1 tab PO QPM 11/26/23 01/04/24 mg-selen-D3 2,000 unit-vit E tablet (RenaPlex-D) Previous Rx's Medication Instructions Recorded blood-glucose meter,continuous #1 ea 07/07/21 (Dexcom G6 Appointment Coordinator) blood-glucose transmitter (Dexcom #1 ea 08/03/23 G6 Transmitter device) cyclobenzaprine 5 mg tablet 5 mg PO BEDTIME PRN muscle spasm 12/30/23 #10 tabs diclofenac sodium 50 mg 50 mg PO BID PRN pain #14 tabs 12/30/23 tablet,delayed release prednisone 20 mg tablet 60 mg (3 x 20 mg) PO DAILY #20 tabs 12/30/23 tramadol 50 mg tablet 50 mg PO Q8H PRN pain #10 tabs 12/30/23 insulin lispro 100 unit/mL See Rx Instructions .Route 01/10/24 subcutaneous pen (Humalog KwikPen .COMPLEX #60 mL (U-100) Insulin) blood-glucose sensor (Dexcom G7 #9 ea 01/18/24 Sensor device) insulin degludec 200 unit/mL (3 24 unit (0.12 mL) SUBCUT DAILY #9 01/18/24 mL) subcutaneous pen (Tresiba mL FlexTouch U-200 insulin) Allergies Allergy/AdvReac Type Severity Reaction Status Date / Time No Known Allergies Allergy Verified 01/29/24 18:19 PFSH ED 2 PFSH: Medical History End stage renal disease on dialysis Coronary artery disease Diabetic retinopathy 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 Uncontrolled type 1 diabetes mellitus Surgical History AV fistula History of tonsillectomy History of colonoscopy History of cholecystectomy Family History Other Cancer Diabetes Social History Smoking and tobacco/nicotine status: never used tobacco/nicotine Second hand smoke exposure: No Alcohol intake: never Physical Exam 2 Const: COMMON NORMALS: no acute distress GENERAL APPEARANCE: cooperative; not ill appearing and not frail appearing HENMT: COMMON NORMALS: normocephalic, atraumatic and Normal external nose present HEAD & SCALP: normocephalic and atraumatic FACE & SINUS: normal facial exam and face symmetric NOSE: Normal external nose present Eye: COMMON NORMALS: Equal, round and reactive pupils present and EOMs intact bilaterally PUPIL: Yes Equal, round and reactive pupils present Neck/C-Spine: GENERAL: Yes trachea midline Chest: CHEST: Yes Symmetrical chest wall rise Resp: COMMON NORMALS: normal respiratory effort, No retractions, No use of accessory muscles and clear to auscultation bilaterally AUSCULTATION: clear to auscultation bilaterally Cardio: COMMON NORMALS: regular rate and regular rhythm RATE: regular rate RHYTHM: regular rhythm GI: COMMON NORMALS: Normal to inspection, nondistended, normoactive bowel sounds present OTHER: Some periumbilical tenderness. Hernia site seems are soft and reducible. Extremity: COMMON NORMALS: no pedal edema Neuro: RM COMA SCALE: document GCS findings Rm coma scale eye opening: Spontaneous Rm coma scale verbal response: Orientated Rm coma scale motor response: [place]bey commands [place] coma scale total score: 15 S ENSORY EXAM: Yes extremities (intact) Psych: COMMON NORMALS: speech normal SPEECH: Yes normal speech Skin: COMMON NORMALS: no rashes or lesions noted GENERAL SKIN EXAM: no rashes or lesions noted Course 2 Vital Signs: Vital signs: Vital Signs Temperature 98.3 F 01/29/24 18:21 Pulse Rate 65 01/29/24 21:09 Respiratory Rate 18 01/29/24 21:09 Blood Pressure 232/99 01/29/24 21:09 Pulse Oximetry 92 01/29/24 21:09 MDM - Abdominal Pain Medical Decision Making 68-year-old male with what sounds to be resolved protruding umbilical hernias. Hernia site is soft, and minimally tender currently. It does not contain small bowel on CT. Given his dialysis on Wednesday, his laboratory is not remarkable. His symptoms are improved. With improvement in his symptoms, resolution of his hernia pain, he will be allowed discharge. He knows to return for any worsening symptoms. He will call his surgeon Wednesday for follow-up appointment. Lab Data 01/29/24 18:56 01/29/24 18:56 Labs/Radiology: Radiology Impressions Abdomen/Pelvis CT 01/29/24 18:50 IMPRESSION: 1. Borderline dilated, fluid-filled small bowel loops may represent developing adynamic ileus. While there is no definite transition point, a low-grade small bowel obstruction is also possible. Underlying enteritis not excluded. Consider radiographic follow-up to re-evaluate as clinically warranted. 2. Fat containing umbilical hernia no longer contains a small bowel loop as was seen previously. However, there is mild fat stranding, and developing fat necrosis is possible. 3. Ill-defined hypodensity in the uncinate process of the pancreas is incompletely evaluated. Underlying neoplasm not excluded. Recommend MRI abdomen without and with contrast for further evaluation. 4. Several pancreatic cystic foci are incompletely characterized. These may represent side branch IPMNs. As the dominant cystic focus in the pancreatic head appears contiguous with the common bile duct, this may also represent a choledochocele. These could be further assessed at time of MRI. 5. Prostatomegaly. Correlate with PSA levels. 6. Colonic diverticulosis without acute diverticulitis. 7. Penile calcifications can be seen with end-stage renal disease. Peyronie disease is a differential consideration. Laboratory Results WBC 6.97 10^3/uL (3.29-11.43) 01/29/24 18:56 RBC 3.58 10^6/uL (3.85-5.65) L 01/29/24 18:56 Hgb 11.10 g/dL (11.27-16.99) L 01/29/24 18:56 Hct 34.5 % (37-53) L 01/29/24 18:56 MCV 96.4 fl (82-101) 01/29/24 18:56 MCH 31.0 pg (27-33) 01/29/24 18:56 MCHC 32.2 g/dL (30-55) 01/29/24 18:56 RDW 14.7 % (12.1-15.1) 01/29/24 18:56 Plt Count 310 10^3/cmm (157-399) 01/29/24 18:56 MPV 9.2 fL (7.4-10.4) 01/29/24 18:56 Neut % (Auto) 63.0 % 01/29/24 18:56 Lymph % (Auto) 17.5 % 01/29/24 18:56 [place] % (Auto) 10.2 % 01/29/24 18:56 Eos % (Auto) 8.5 % 01/29/24 18:56 Baso % (Auto) 0.7 % 01/29/24 18:56 Neut # (Auto) 4.39 10^3/uL (1.8-7.7) 01/29/24 18:56 Lymph # (Auto) 1.2 10^3/uL (0.8-4.8) 01/29/24 18:56 [place] # (Auto) 0.7 10^3/uL (0.2-0.9) 01/29/24 18:56 Eos # (Auto) 0.6 10^3/uL (0.0-0.8) 01/29/24 18:56 Baso # (Auto) 0.1 10^3/uL (0.0-0.1) 01/29/24 18:56 Nucleated RBC % (auto) 0 % 01/29/24 18:56 Nucleated RBCs # 0.0 /100WBC 01/29/24 18:56 Sodium 138 mmol/L (136-145) 01/29/24 18:56 Potassium 4.2 mmol/L (3.5-5.1) 01/29/24 18:56 Chloride 95 mmol/L (98-107) L 01/29/24 18:56 Carbon Dioxide 32 mmol/L (22-29) H 01/29/24 18:56 Anion Gap 15.2 (5-19) 01/29/24 18:56 BUN 35 mg/dL (8-23) H 01/29/24 18:56 Creatinine 6.2 mg/dL (0.7-1.2) H* 01/29/24 18:56 GFR Calculation 9.1 mL/min (90-130) L 01/29/24 18:56 Glucose 159 mg/dL (65-115) H 01/29/24 18:56 Calculated Osmolality 297 mOsm/kg (285-295) H 01/29/24 18:56 Calcium 9.9 mg/dL (8.5-10.5) 01/29/24 18:56 Total Bilirubin 0.2 mg/dL (0.15-1.2) 01/29/24 18:56 AST 15 U/L (0-40) 01/29/24 18:56 ALT 20 U/L (0-41) 01/29/24 18:56 Alkaline Phosphatase 62 U/L (40-130) 01/29/24 18:56 Total Protein 6.6 g/dL (6.6-8.7) 01/29/24 18:56 Albumin 4.0 g/dL (3.5-5.2) 01/29/24 18:56 Globulin 2.6 g/dL (1.3-4.6) 01/29/24 18:56 Lipase 48 U/L (13-60) 01/29/24 18:56 All radiology interpretation(s) finalized by discharge Discharge Plan Discharge Patient Disposition: Home Clinical Impression: Periumbilical hernia Condition: Stable Prescriptions: No Action calcitriol 0.5 mcg capsule 0.5 mcg PO DIRECTED Rx Instructions: Wednesday, Wednesday, Wednesday with dialysis. carvedilol 12.5 mg tablet 12.5 mg PO BID Rx Instructions: must administer with a meal/food nifedipine 90 mg tablet extended release 30 mg PO BEDTIME aspirin 81 mg tablet,delayed release (DR/EC) 81 mg PO DIRECTED Rx Instructions: Wednesday, Wednesday, and Wednesday with dialysis (DME) Dexcom G6 Appointment Coordinator Misc See Rx Instructions .Route Qty: 1 0RF Rx Instructions: Check BS 4-6 times a day. (DME) Dexcom G6 Transmitter Device See Rx Instructions .Route Qty: 1 3RF Rx Instructions: Change every 90 days. insulin lispro [Humalog KwikPen Insulin] 100 unit/mL insulin pen See Rx Instructions .ROUTE .COMPLEX Qty: 60 1RF Dose Instruction: INJECT 20 units SUBCUTANEOUSLY THREE TIMES DAILY. max DAILY DOSE: 60 units Rx Instructions: INJECT 20 units SUBCUTANEOUSLY THREE TIMES DAILY. max DAILY DOSE: 60 units [place] [place] Dexcom G7 Sensor Device See Rx Instructions .Route Qty: 9 1RF Rx Instructions: As directed Tresiba FlexTouch U-200 200 unit/mL (3 mL) insulin pen 24 unit SUBCUT DAILY Qty: 9 0RF Rx Instructions: in the morning irbesartan 75 mg Tablet 75 mg PO BEDTIME bumetanide 1 mg Tablet 1 mg PO BEDTIME rosuvastatin 10 mg tablet 10 mg PO BEDTIME tramadol 50 mg tablet See Rx Instructions .ROUTE .COMPLEX Rx Instructions: TAKE 1-2 TABLETS BY MOUTH EVERY 6 HOURS NEEDED FOR PAIN. sevelamer carbonate 800 mg tablet 1,600 mg PO TID RenaPlex-D 800 mcg-12.5 mg -2,000 unit tablet 1 tab PO QPM prednisone 20 mg tablet 60 mg PO DAILY Qty: 20 0RF Rx Instructions: 3 tabs (60 mg) x 3 days. 2 tabs (40 mg) x 3 days. 1 tab (20 mg) x 3 days. 1/2 tab (10 mg) x 4 days tramadol 50 mg tablet 50 mg PO Q8H PRN (Reason: pain) Qty: 10 0RF diclofenac sodium 50 mg tablet,delayed release (DR/EC) 50 mg PO BID PRN (Reason: pain) Qty: 14 0RF cyclobenzaprine 5 mg tablet 5 mg PO BEDTIME PRN (Reason: muscle spasm) Qty: 10 0RF Discharge Orders: Discharge ED (Routine); Ordered 01/29/24 Ordered By: Jeffrey Garduno Referrals: Anurag Brink MD [Physician] - 4-7 days Yasmin Kohler FNP [Primary Care Provider] - Patient Instructions: Umbilical Hernia (ED), Opioid Safety, Pain Management Activity Restrictions/Additional Instructions: Return for return of pain, fever, vomiting, any other concerning symptoms. Do not lift on anything strenuous, push or pull, etc. Call your surgeon on Wednesday, and let them know you were seen here with symptoms, as they will likely want to see you again Coding Level of Care Code ED Instructional Material Director for Giana Bell
[2024-01-29 19:38] LABS: Anion Gap 15.2 (5-19); Potassium 4.2 mmol/L (3.5-5.1)
[2024-01-29 21:09] VITALS: BP 232/99; PULSE 65; RESP 18; O2SAT 92
== END 2024-01-29 21:05 | disposition home or self-care (01) ==
PROVIDERS: Emergency Medicine; Emergency Provider Emergency Medicine; PCP Nurse Practitioner
DX: K42.9 Umbilical hernia without obstruction or gangrene (principal)
CPT/HCPCS: 74177; 80053; 83690; 85025; 96374; 96375; 99285; J2270; J2405

== ENCOUNTER 2024-01-31 20:48 | Emergency (ER) | payer OTHER, MEDICARE, SELFPAY ==
[2024-01-31 20:56] VITALS: BP 192/96; PULSE 77; RESP 16; TEMP 36.7; O2SAT 93
[2024-01-31 21:30] VITALS: BP 154/79; PULSE 76; RESP 16; O2SAT 93
[2024-01-31 21:54] VITALS: BP 154/79; PULSE 77; RESP 16; O2SAT 93
--- NOTE | 2024-01-31 23:10 | ED_ITS ---
HPI - Abdominal Pain General: Chief Complaint: Abdominal Pain Stated Complaint: ABD Pain Time Seen by Provider: 01/31/24 21:19 Source: patient Mode of arrival: ambulatory Limitations: no limitations History of Present Illness: Patient is a 68-year-old male with history of Rafael umbilical hernia and end- stage renal disease on dialysis who presents the emergency department for the second time in 2 days for abdominal pain. He states that he was seen here last night, fell obstruction ruled out and he had labs consistent with end-stage renal disease and was discharged home and told to return if this gets worse. He states that earlier today his pain was severe, however he had not had a bowel movement. After taking Dulcolax, he had a bowel movement here in the emergency department before going back to the room and states this completely resolved his pain. He had to leave his dialysis earlier today, but states he is making this up tomorrow. He has no symptoms to report, stating he is pain-free and would like to go home at this time. His vitals are stable. MD elicited complaint: abdominal pain Pertinent past history: other (Hernia) Pain Consistency: now resolved Radiation: none Migration to: no migration Exacerbating factors: nothing Relieving factors: bowel movement Associated Symptoms: Denies bloating, change in stool character, chills, constipation, diarrhea, dysuria, fever(s), hematochezia, nausea and vomiting Related Data Home Medications Medication Instructions Recorded Confirmed calcitriol 0.5 mcg capsule 0.5 mcg PO DIRECTED 06/18/20 01/04/24 carvedilol 12.5 mg tablet 12.5 mg PO BID 06/18/20 01/04/24 aspirin 81 mg tablet,delayed 81 mg PO DIRECTED 06/26/21 01/04/24 release nifedipine 90 mg tablet,extended 30 mg PO BEDTIME 05/12/22 01/04/24 release bumetanide 1 mg tablet 1 mg PO BEDTIME 11/25/23 01/04/24 irbesartan 75 mg tablet 75 mg PO BEDTIME 11/25/23 01/04/24 rosuvastatin 10 mg tablet 10 mg PO BEDTIME 11/25/23 01/04/24 sevelamer carbonate 800 mg tablet 1,600 mg PO TID 11/26/23 01/04/24 tramadol 50 mg tablet See Rx Instructions .Route .COMPLEX 11/26/23 01/04/24 vit B,C-folic ac 800 mcg-zinc 12.5 1 tab PO QPM 11/26/23 01/04/24 mg-selen-D3 2,000 unit-vit E tablet (RenaPlex-D) Previous Rx's Medication Instructions Recorded blood-glucose meter,continuous #1 ea 07/07/21 (Dexcom G6 Plug Drill Operator) blood-glucose transmitter (Dexcom #1 ea 08/03/23 G6 Transmitter device) cyclobenzaprine 5 mg tablet 5 mg PO BEDTIME PRN muscle spasm 12/30/23 #10 tabs diclofenac sodium 50 mg 50 mg PO BID PRN pain #14 tabs 12/30/23 tablet,delayed release prednisone 20 mg tablet 60 mg (3 x 20 mg) PO DAILY #20 tabs 12/30/23 tramadol 50 mg tablet 50 mg PO Q8H PRN pain #10 tabs 12/30/23 insulin lispro 100 unit/mL See Rx Instructions .Route 01/10/24 subcutaneous pen (Humalog KwikPen .COMPLEX #60 mL (U-100) Insulin) blood-glucose sensor (Dexcom G7 #9 ea 01/18/24 Sensor device) insulin degludec 200 unit/mL (3 24 unit (0.12 mL) SUBCUT DAILY #9 01/18/24 mL) subcutaneous pen (Tresiba mL FlexTouch U-200 insulin) Allergies Allergy/AdvReac Type Severity Reaction Status Date / Time No Known Allergies Allergy Verified 01/31/24 21:00 Review of Systems General: Reports: 10 or more systems reviewed and unremarkable except in HPI and below Const: Denies: fever(s), chills, change in appetite, change in weight or diaphoresis ENMT: Denies: throat pain or hoarseness Card: Denies: chest pain, palpitations or lightheadedness Resp: Denies: dyspnea, productive cough or wheezing GI: Reports: abdominal pain; Denies: nausea, vomiting, diarrhea, constipation, bloating, change in stool character or hematochezia : Denies: flank pain, difficulty urinating, dysuria, urinary frequency or urinary urgency Musc: Denies: neck pain or back pain Skin/Breast: Denies: rash or new lesions Neuro: Denies: headache(s) or dizziness PFSH ED PFSH: Medical History End stage renal disease on dialysis Coronary artery disease Diabetic retinopathy 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 Uncontrolled type 1 diabetes mellitus Surgical History AV fistula History of tonsillectomy History of colonoscopy History of cholecystectomy Family History Other Cancer Diabetes Social History Smoking and tobacco/nicotine status: never used tobacco/nicotine Second hand smoke exposure: No Alcohol intake: never Physical Exam Const: COMMON NORMALS: no acute distress, average body habitus, no limitations, healthy appearing and well nourished GENERAL APPEARANCE: cooperative and comfortable ORIENTATION/CONSCIOUSNESS: Yes awake HENMT: COMMON NORMALS: normocephalic, atraumatic, hearing grossly normal bilaterally, external ears normal, Normal external nose present, Normal nasal mucous membranes and turbinates present and moist oral mucous membranes HEAD & SCALP: normocephalic and atraumatic NOSE: Normal external nose present and Normal nasal mucous membranes and turbinates present EXTERNAL EAR: Yes external ears normal Eye: COMMON NORMALS: Equal, round and reactive pupils present, EOMs intact bilaterally, conjunctivae normal and normal visual rick by confrontation CONJUNCTIVA: Yes conjunctivae normal PUPIL: Yes Equal, round and reactive pupils present Neck/C-Spine: COMMON NORMALS: full ROM, supple and no JVD Resp: COMMON NORMALS: normal respiratory effort, No retractions, No use of accessory muscles and clear to auscultation bilaterally AUSCULTATION: clear to auscultation bilaterally, no crackles, no rales, no rhonchi and no wheezes Cardio: COMMON NORMALS: no JVD, regular rate, regular rhythm, S1 normal heart sound present, S2 normal heart sound present, No gallops present (Cardio), No clicks present (Cardio), No murmurs present (Cardio), No rub (Cardio) and Peripheral pulses 2+ throughout RATE: regular rate RHYTHM: regular rhythm HEART SOUNDS: S1 normal heart sound present and S2 normal heart sound present PERIPHERAL PULSES: Peripheral pulses 2+ throughout GI: COMMON NORMALS: Normal to inspection, nondistended, normoactive bowel sounds present, Soft to palpation, non-tender, No hepatosplenomegaly present and no masses AUSCULTATION: Yes normoactive bowel sounds PALPATION: Yes Soft to palpation, No Guarding due to palpation present (GI), No Rigid due to palpation, Yes No hepatosplenomegaly present and Yes Hernia present umbilical RECTAL EXAM: Yes deferred Extremity: COMMON NORMALS: normal to inspection and full ROM Skin: COMMON NORMALS: no rashes or lesions noted GENERAL SKIN EXAM: no rashes or lesions noted Course Vital Signs: Vital signs: Vital Signs Temperature 98.0 F 01/31/24 20:56 Pulse Rate 77 01/31/24 21:54 Respiratory Rate 16 01/31/24 21:54 Blood Pressure 154/79 01/31/24 21:54 Pulse Oximetry 93 01/31/24 21:54 Oxygen Delivery Me thod Room Air 01/31/24 21:30 MDM - Abdominal Pain Medical Decision Making Patient stated he presented for worsening of abdominal pain, was told to return if he got worse after being seen her last night. He had a small bowel obstruction ruled out yesterday, his labs were consistent with end-stage renal disease with a missed dialysis on Wednesday. He states that he was at dialysis today and had to leave early for the pain. He notes that while in the emergency department he had a bowel movement and this completely relieved his pain, and states he almost did not go back to the room. His vitals have been stable, states he is ready to go home at this time. No need for imaging or labs, he will make up dialysis appointment tomorrow he states. Reasons to return were still discussed, he agrees at this time. No radiology studies performed this visit Discharge Plan Discharge Patient Disposition: Home Clinical Impression: Periumbilical hernia Condition: Stable Prescriptions: No Action calcitriol 0.5 mcg capsule 0.5 mcg PO DIRECTED Rx Instructions: Wednesday, Wednesday, Wednesday with dialysis. carvedilol 12.5 mg tablet 12.5 mg PO BID Rx Instructions: must administer with a meal/food nifedipine 90 mg tablet extended release 30 mg PO BEDTIME aspirin 81 mg tablet,delayed release (DR/EC) 81 mg PO DIRECTED Rx Instructions: Wednesday, Wednesday, and Wednesday with dialysis (DME) Dexcom G6 Plug Drill Operator Misc See Rx Instructions .Route Qty: 1 0RF Rx Instructions: Check BS 4-6 times a day. (DME) Dexcom G6 Transmitter Device See Rx Instructions .Route Qty: 1 3RF Rx Instructions: Change every 90 days. insulin lispro [Humalog KwikPen Insulin] 100 unit/mL insulin pen See Rx Instructions .ROUTE .COMPLEX Qty: 60 1RF Dose Instruction: INJECT 20 units SUBCUTANEOUSLY THREE TIMES DAILY. max DAILY DOSE: 60 units Rx Instructions: INJECT 20 units SUBCUTANEOUSLY THREE TIMES DAILY. max DAILY DOSE: 60 units (DME) Dexcom G7 Sensor Device See Rx Instructions .Route Qty: 9 1RF Rx Instructions: As directed Tresiba FlexTouch U-200 200 unit/mL (3 mL) insulin pen 24 unit SUBCUT DAILY Qty: 9 0RF Rx Instructions: in the morning irbesartan 75 mg Tablet 75 mg PO BEDTIME bumetanide 1 mg Tablet 1 mg PO BEDTIME rosuvastatin 10 mg tablet 10 mg PO BEDTIME tramadol 50 mg tablet See Rx Instructions .ROUTE .COMPLEX Rx Instructions: TAKE 1-2 TABLETS BY MOUTH EVERY 6 HOURS NEEDED FOR PAIN. sevelamer carbonate 800 mg tablet 1,600 mg PO TID RenaPlex-D 800 mcg-12.5 mg -2,000 unit tablet 1 tab PO QPM prednisone 20 mg tablet 60 mg PO DAILY Qty: 20 0RF Rx Instructions: 3 tabs (60 mg) x 3 days. 2 tabs (40 mg) x 3 days. 1 tab (20 mg) x 3 days. 1/2 tab (10 mg) x 4 days tramadol 50 mg tablet 50 mg PO Q8H PRN (Reason: pain) Qty: 10 0RF diclofenac sodium 50 mg tablet,delayed release (DR/EC) 50 mg PO BID PRN (Reason: pain) Qty: 14 0RF cyclobenzaprine 5 mg tablet 5 mg PO BEDTIME PRN (Reason: muscle spasm) Qty: 10 0RF Discharge Orders: Discharge ED (Routine); Ordered 01/31/24 Ordered By: Anurag Bautista Referrals: Yasmin Kohler FNP [Primary Care Provider] - Patient Instructions: Umbilical Hernia (ED) Activity Restrictions/Additional Instructions: Take MiraLAX, increase your dietary fiber and fluid intake. Continue following up with the surgeon and primary care as discussed. Return if you develop any high fevers, vomiting, severe increase in abdominal pain, or other concerning symptoms that you may have. Continue Tylenol for your low back pain. Please go to your next dialysis appointment. Coding Level of Care Code ED [facility]n [facility]
== END 2024-01-31 21:56 | disposition home or self-care (01) ==
PROVIDERS: Emergency Provider Physician Assistant; PCP Nurse Practitioner
DX: K42.9 Umbilical hernia without obstruction or gangrene (principal); N18.6 End stage renal disease; Z99.2 Dependence on renal dialysis
CPT/HCPCS: 99281

== ENCOUNTER 2024-03-14 11:31 | Outpatient (CLI) | payer OTHER, SELFPAY ==
[2024-03-14 12:41] LABS: Estmated Average Glucose 140; Hemoglobin A1C 6.5 % (4.0-6.0)
[2024-03-14 12:43] LABS: Alanine Aminotransferase 13 U/L (0-41); Albumin Level 4.1 g/dL (3.5-5.2); Alkaline Phosphatase 63 U/L (40-130); Anion Gap 14.9 (5-19); Aspartate Amino Transferase 11 U/L (0-40); Blood Urea Nitrogen 34 mg/dL (8-23); Calcium 9.6 mg/dL (8.5-10.5); Carbon Dioxide 30 mmol/L (22-29); Chloride 95 mmol/L (98-107); Chol HDL Ratio 3.13 mg/dL (1.0-5.00); Cholesterol 122 mg/dL (0-200); Globulin 2.6 g/dL (1.3-4.6); Glomerular Filtration Rate 9.8 mL/min (90-130); Glucose 196 mg/dL (65-115); HDL Cholesterol 39 mg/dL (60-100); LDL Cholesterol Calculated 42 mg/dL (50-129); LDL HDL Ratio 1.08 RATIO (0.00-3.22); Osmolality Calculated 295 mOsm/kg (285-295); Potassium 3.9 mmol/L (3.5-5.1); Sodium 136 mmol/L (136-145); Total Bilirubin 0.2 mg/dL (0.15-1.2); Total Protein 6.7 g/dL (6.6-8.7); Triglycerides 203 mg/dL (0-150)
[2024-03-14 12:52] LABS: Creatinine Urine, Random 65 mg/dL (39-259)
[2024-03-14 13:04] LABS: Microalbum Creatinine Ratio Ur 5508 mg/dL (0-20); Microalbumin Random Urine 358 ug/dL (0-20)
== END 2024-03-14 11:32 | disposition home or self-care (01) ==
LOC: LAB 11:33
PROVIDERS: PCP Nurse Practitioner; Visit Provider Internal Medicine
DX: Z79.4 Long term (current) use of insulin (principal); E16.0 Drug-induced hypoglycemia without coma; T38.3X5A Adverse effect of insulin and oral hypoglycemic [antidiabetic] drugs, initial encounter; E78.2 Mixed hyperlipidemia; E10.22 Type 1 diabetes mellitus with diabetic chronic kidney disease; N18.5 Chronic kidney disease, stage 5; X58.XXXA Exposure to other specified factors, initial encounter
CPT/HCPCS: 36415; 80053; 80061; 82044; 83036

== ENCOUNTER → 2024-03-21 12:59 | Outpatient (BNVA) | payer OTHER, SELFPAY | PROVIDERS: PCP Nurse Practitioner; Visit Provider Internal Medicine | DX: Z79.4 Long term (current) use of insulin (principal); E16.0 Drug-induced hypoglycemia without coma; T38.3X5A Adverse effect of insulin and oral hypoglycemic [antidiabetic] drugs, initial encounter; E78.2 Mixed hyperlipidemia; E10.22 Type 1 diabetes mellitus with diabetic chronic kidney disease; N18.5 Chronic kidney disease, stage 5; X58.XXXA Exposure to other specified factors, initial encounter; E10.319 Type 1 diabetes mellitus with unspecified diabetic retinopathy without macular edema; E10.649 Type 1 diabetes mellitus with hypoglycemia without coma | CPT/HCPCS: 99214 ==

== ENCOUNTER → 2024-04-06 10:10 | Outpatient (BNVA) | payer OTHER, SELFPAY | PROVIDERS: PCP Nurse Practitioner; Visit Provider Nurse Practitioner Family | DX: L81.4 Other melanin hyperpigmentation (principal); L57.8 Other skin changes due to chronic exposure to nonionizing radiation; D22.5 Melanocytic nevi of trunk; L91.8 Other hypertrophic disorders of the skin; D48.5 Neoplasm of uncertain behavior of skin; L57.0 Actinic keratosis | CPT/HCPCS: 11102; 17000; 99213 ==

== ENCOUNTER → 2024-06-13 10:57 | Outpatient (BNVA) | payer OTHER, SELFPAY | PROVIDERS: PCP Nurse Practitioner; Visit Provider Nurse Practitioner Family | DX: L91.8 Other hypertrophic disorders of the skin (principal); D22.39 Melanocytic nevi of other parts of face; D22.5 Melanocytic nevi of trunk; L81.4 Other melanin hyperpigmentation; L57.8 Other skin changes due to chronic exposure to nonionizing radiation; L57.0 Actinic keratosis | CPT/HCPCS: 17000; 99213 ==

== ENCOUNTER → 2024-06-22 08:25 | Outpatient (BNVA) | payer OTHER, SELFPAY | PROVIDERS: PCP Nurse Practitioner; Visit Provider Internal Medicine | DX: E10.22 Type 1 diabetes mellitus with diabetic chronic kidney disease (principal); Z79.4 Long term (current) use of insulin; N18.5 Chronic kidney disease, stage 5; E16.0 Drug-induced hypoglycemia without coma; T38.3X5A Adverse effect of insulin and oral hypoglycemic [antidiabetic] drugs, initial encounter; E78.2 Mixed hyperlipidemia | CPT/HCPCS: 99214 ==

== ENCOUNTER 2024-10-02 14:25 | Outpatient (CLI) | payer OTHER, SELFPAY ==
[2024-10-02 15:42] LABS: Alanine Aminotransferase 15 U/L (0-41); Albumin Level 4.3 g/dL (3.5-5.2); Alkaline Phosphatase 94 U/L (40-130); Anion Gap 14.9 (5-19); Aspartate Amino Transferase 8 U/L (0-40); Blood Urea Nitrogen 20 mg/dL (8-23); Calcium 9.8 mg/dL (8.5-10.5); Carbon Dioxide 33 mmol/L (22-29); Chloride 95 mmol/L (98-107); Chol HDL Ratio 2.77 mg/dL (1.0-5.00); Cholesterol 122 mg/dL (0-200); Globulin 3.1 g/dL (1.3-4.6); Glomerular Filtration Rate 14.7 mL/min (90-130); Glucose 71 mg/dL (65-115); HDL Cholesterol 44 mg/dL (60-100); LDL Cholesterol Calculated 9 mg/dL (50-129); Osmolality Calculated 289 mOsm/kg (285-295); Potassium 3.9 mmol/L (3.5-5.1); Sodium 139 mmol/L (136-145); Total Bilirubin 0.2 mg/dL (0.15-1.2); Total Protein 7.4 g/dL (6.6-8.7); Triglycerides 345 mg/dL (0-150)
[2024-10-02 15:44] LABS: Estmated Average Glucose 146; Hemoglobin A1C 6.7 % (4.0-6.0)
[2024-10-02 15:47] LABS: Creatinine Urine, Random 84 mg/dL (39-259)
[2024-10-02 16:02] LABS: Microalbum Creatinine Ratio Ur 1298 mg/dL (0-20); Microalbumin Random Urine 109 ug/dL (0-20)
== END 2024-10-02 14:26 | disposition home or self-care (01) ==
LOC: LAB 14:32
PROVIDERS: PCP Nurse Practitioner; Visit Provider Internal Medicine
DX: Z79.4 Long term (current) use of insulin (principal); E10.22 Type 1 diabetes mellitus with diabetic chronic kidney disease; N18.5 Chronic kidney disease, stage 5; E16.0 Drug-induced hypoglycemia without coma; T38.3X5A Adverse effect of insulin and oral hypoglycemic [antidiabetic] drugs, initial encounter; X58.XXXA Exposure to other specified factors, initial encounter; E78.2 Mixed hyperlipidemia
CPT/HCPCS: 36415; 80053; 80061; 82044; 83036

== ENCOUNTER → 2024-10-03 09:42 | Outpatient (BNVA) | payer OTHER, SELFPAY | PROVIDERS: PCP Nurse Practitioner; Visit Provider Internal Medicine | DX: E10.65 Type 1 diabetes mellitus with hyperglycemia (principal); E10.22 Type 1 diabetes mellitus with diabetic chronic kidney disease; E78.2 Mixed hyperlipidemia; N18.5 Chronic kidney disease, stage 5; Z79.4 Long term (current) use of insulin; E16.0 Drug-induced hypoglycemia without coma | CPT/HCPCS: 99214 ==

== ENCOUNTER 2024-10-18 15:29 | Emergency (ER) | payer OTHER, MEDICARE, SELFPAY ==
--- OUTSIDE RECORDS SUMMARY | 2003-04-04 19:00 | XMS_ITS | Continuity of Care Document ---
Author Name [facility] Address [address] [place] [address] Organization [facility] Care Team Providers Care [place] Name Role Phone [facility] Unavailable Problems Problem Status Onset Date Problem Type Date of Resolution Comme nts Source Chronic kidney disease stage 4 associated with type 2 diabetes mellitus (disorder) Active Condition Hypertensive disorder, systemic arterial (disorder) Active Condition Diabetes mellitus type 2 (disorder) Active Condition Acute kidney failure, unspecified Active Diagnosis Hypertensive chronic kidney disease with stage 5 chronic kidney disease or end stage renal disease Diagnosis Type 2 diabetes mellitus with diabetic neuropathy, unspecified Diagnosis Hypotension, unspecified Diagnosis Type 2 diabetes mellitus with hypoglycemia without coma Diagnosis Kidney transplant status Diagnosis Personal history of transient ischemic attack (TIA), and cerebral infarction without residual deficits Diagnosis Muscle weakness (generalized) Diagnosis Consultation Notes Results Value Date Source Echo Transthoracic Complete Transthoraci c Echocardiography Report (TTE) Demographics Patient Name ARNOLDO AMARAL Gender Male [facility] Number [id number] Date of Study 11/22/2017 Attending Physician Sonali Perrin Visit Number [id number] Cigar Head Pegger Lacy Yoo Date of 1955 Interpreting Marli Russo MD Physician Age 61 year(s) Ordering Physician Sonali Perrin Procedure Type of Study TTE procedure:Echo Transthoracic Complete, Complete 2D, M-mode, Complete Spectral Doppler, Color Flow. Indications:N18.6 End-Stage Renal Disease. Study Status: Routine Patient Status: Out-Patient Study Location: Echo Lab Height: 70 inches Weight: 220 pounds BSA: 2.17 m HR: 71 bpm BP: 163/92 mmHg Conclusions Summary Left ventricular size was normal. Systolic function was normal. Ejection fraction was estimated to be 60 %. Overall regional wall motion was normal. The left ventricular wall thickness was Moderately increased. Doppler parameters were consistent with Class 1 diastolic dysfunction. Mildly dilated left atrium. Signature Findings Left Ventricle Left ventricular size was normal. Systolic function was normal. Ejection fraction was estimated to be 60 %. Overall regional wall motion was normal. The left ventricular wall thickness was Moderately increased. Doppler parameters were consistent with Class 1 diastolic dysfunction. Right Ventricle Right ventricular size was normal. Systolic function was normal. Wall thickness was normal. The right ventricular systolic pressure was within the normal range. Left Atrium Mildly dilated left atrium. Right Atrium Right atrial size was normal. Great Vessels Aortic root exhibited normal size. The IVC was normal in size and course. Respirophasic changes were normal. Pericardial Effusion No evidence of pericardial effusion. Mitral Valve Mitral valve structure was normal. There was normal leaflet separation. The transmitral velocity was within the normal range. There was no evidence for stenosis. There was no regurgitation. Aortic Valve The aortic valve was trileaflet. Leaflets revealed normal thickness and normal cuspal separation. Transaortic velocity was within the normal range. There was no stenosis. There was no regurgitation. Tricuspid Valve Tricuspid valve structure was normal. There was normal leaflet separation. The transtricuspid velocity was within the normal range. There was no evidence for tricuspid stenosis. There was very mild regurgitation. Pulmonic Valve Pulmonic valve structure was normal. There was normal leaflet separation. The transpulmonic velocity was within the normal range. There was no evidence for pulmonic stenosis. There was mild regurgitation. Valves Mitral Valve Peak E-Wave: 0.73 m/s Peak A-Wave: 1.12 m/s E/A Ratio: 0.65 Peak Gradient: 2.16 mmHg Deceleration Time: 231.4 msec Aortic Valve Peak Velocity: 1.28 m/s Area (Continuity):3.68 cm Peak Gradient: 6.57 mmHg Mean Velocity: 0.97 m/s AV VTI: 29.98 cm Mean Gradient: 4.03 mmHg LVOT Peak Velocity: 1.11 m/s Mean Velocity: 0.76 m/s Peak Gradient: 4.94 mmHg Mean Gradient: 2.58 mmHg LVOT Diameter: 2.42 cm LVOT VTI: 24.03 cm LVOT CO by Doppler: 117.41 l/min Pulmonic Valve Peak Velocity: 1.1 m/s Peak Gradient: 4.86 mmHg Acceleration Time: 110.7 msec Structures Left Atrium LA Dimension: 4.05 cm LA Volume: 89.63 ml LA Volume Index: 41ml/m Left Ventricle Diastolic Dimension: 4.47 cm Systolic Dimension: 2.99 cm Septum Diastolic: 1.72 cm PW Diastolic: 1.41 cm FS: 33.1 % EF Estimated: 60 % LV EDV/LV EDV Index: 140.1 ml/65 m LVOT Diameter: 2.42 cm Right Ventricle Diastolic Dimension: 3.52 cm Great Vessels Aorta Aortic Root: 4.07 cm LVOT Diameter: 2.42 cm CD:[id number] [id number] [email or web address] [facility] URL Encounters Location Location Details Encounter Type Encounter Number Reason For Visit Attending Provider ADM Date DC Date Status Source [facility] DIAGNOSTIC TEST [id number] Transplant recipient Devyn [place] [facility] DIAGNOSTIC TEST [id number] Transplant Recipient Devyn [facility] DIAGNOSTIC TEST [id number] Tranplant Recipient Devyn [facility] DIAGNOSTIC TEST [id number] Transplant Recipient Devyn [facility]
--- OUTSIDE RECORDS SUMMARY | 2023-11-29 06:01 | XMS_ITS | Encounter Summary ---
Author Name [facility] [facility] [place] [facility] [place] Address [address] [place] [id number] Care Team Providers Care Film Color Tester Name Role Phone FELICE MESSINA Primary Care Provider Unavail able Insurance Providers: All historical and current Section Date Range: From patient's date of to the date document was created. This section includes the names of all active insurance providers for the patient. Insurance Provider Type of Coverage Plan Name Start of Policy Coverage End of Policy Coverage Group Number Member ID Insurance Provider's Telephone Number Policy Mason's Name Patient's Relationship to Policy Mason MEDICARE (WNR) MEDICARE (M) PART A Nov 03, 2022 PART A [id number] [phone] ARNOLDOWilda JUAREZ PATIENT MEDICARE (WNR) MEDICARE (M) PART B Nov 03, 2022 PART B [id number] [phone] LIANEWilda BOOGIE ANN PATIENT -FO R-LIFE TR[place] RE FOR LIFE WNR Nov 03, 2022 FOR LIFE [id number] [phone] ARNOLDOWilda JUAREZ PATIENT Selected Encounter This section includes the information on record at [place] for the Encounter. Date/Time Encounter Type Encounter Description Reason Pro vider Source Nov 29, 2023 11:01 AM Outpatient Encounter COMMUNITY CARE CONSULT IHE Encounter Template Text not used by [facility] Plan of Treatment: Future Appointments (+ 6 months) and Future Tests (+/- 45 days) The Plan of Treatment section includes future care activities for the patient from all [place] [facility]. This section includes future appointments and future orders which are active, pending or scheduled. Future Appointments This section includes appointments that were scheduled to occur 6 months from the date of the Encounter, up to a maximum of 20 appointments. The data comes from all [facility]. Appointment Date/Time Appointment Type Appointme nt Facility Name Dec 06, 2023 08:00 AM AMBULATORY - MEDICINE [facility] Dec 14, 2023 09:00 AM AMBULATORY - MEDICINE [facility] Jan 04, 2024 08:00 AM AMBULATORY - NONE [facility] Jan 04, 2024 01:20 PM AMBULATORY - SURGERY [facility] BLP[facility] Jan 06, 2024 01:00 PM AMBULATORY - MEDICINE [facility] Mar 21, 2024 11:00 AM AMBULATORY - MEDICINE [facility] Apr 06, 2024 10:45 AM AMBULATORY - MEDICINE [facility] Active, Pending, and Scheduled Orders This section includes a listing of several types of active, pending, and scheduled orders, including clinic medications orders, diagnostic test orders, procedure orders and consult orders; where the start date of the order is 45 days before the date of the Encounter or 45 days after the date of theEncounter. The data comes from all [facility]. Test Date/Time Test Type Test Details Facility Name Nov 26, 2023 03:15 PM Consult Order COMMUNITY CARE-HEMODIALYSIS [id number] Cons Food Production Manager's Choice [facility] Jan 05, 2024 12:00 AM Laboratory - Chemistry Order CHOLESTEROL PANEL (PB) GREEN LI/HEP BLD/PLAS PLASMA [facility] Jan 05, 2024 12:00 AM Laboratory - Chemistry Order COMPREHENSIVE METABOLIC PANEL GREEN LI/HEP BLD/PLAS PLASMA [facility] Jan 05, 2024 12:00 AM Laboratory - Chemistry Order PROST. SPECIFIC AG.(PB-STL) GOLD/RED SST SERUM [facility] Jan 05, 2024 12:00 AM Laboratory - Chemistry Order TSH (MA-PB) GOLD/RED SST SERUM [facility] Jan 05, 2024 12:00 AM Laboratory - Chemistry Order URINALYSIS (STL-PB) URINE MARBLED [facility] Jan 05, 2024 12:00 AM Laboratory - Chemistry Order VITAMIN D, 25-HYDROXY GOLD/RED SST SERUM [facility] Jan 05, 2024 12:00 AM Laboratory - Chemistry Order CBC BLOOD [facility] Jan 05, 2024 12:00 AM Laboratory - Chemistry Order [id number] BLOOD [facility] Encounter Notes: All associated encounter notes This section contains the clinical notes associated to the Encounter. Date/Time Encounter Note(s) Provider Source Nov 29, 2023 11:11 AM LETTERS: LOCAL TITLE: COMMUNITY CARE-REQUEST FOR SERVICES (RFS) LETTER PB STANDARD TITLE: LETTERS DATE OF NOTE: NOV 29, 2023@11:11 ENTRY DATE: NOV 29, 2023@11:11:11 AUTHOR: KELLY BAÑUELOS EXP COSIGNER: URGENCY: STATUS: COMPLETED Dr Amaury [facility] [address] [place] [address] [phone] Dear Provider, Information: Patient Name: CRISTIN MCLAUGHLIN Date of : Nov The Luis Armando [facility] has received the request for DME Upon review, the following determination has been made: A prosthetics consult has been entered and will be reviewed for approval. No action is required by your office at this time. Should you have questions, please contact us at [phone] ext [phone] to speak with a patient biomedical service engineer. As a reminder, if applicable, return medical records within 30 days for routine services. Sincerely, Kelly Bañuelos prototype technician KELLY BAÑUELOS [facility] Nov 29, 2023 11:09 AM NONVA NOTE: LOCAL TITLE: COMMUNITY CARE-REQUEST FOR SERVICE NOTE PB STANDARD TITLE: NONVA NOTE DATE OF NOTE: NOV 29, 2023@11:09 ENTRY DATE: NOV 29, 2023@11:09:27 AUTHOR: KELLY BAÑUELOS COSIGNER: URGENCY: STATUS: COMPLETED COMMUNITY CARE-REQUEST FOR SERVICE NOTE PB Has ADDENDA Request for Services (RFS) documentation has been sent for scanning to [employer] Community Care Consult: COMMUNITY CARE-Endocrinology Consult No: [id number] Date sent to scanning: Nov A Request for Service (RFS) form [id number] has been received which includes the following: Care Requested:Dexcom G7 senior security engineer/reader Date [facility] received request: Nov Date service required: Nov Requesting Community Provider Information: Dr Amaury [facility] [address] [place] [address] [phone] NPI- [id number] /monique/ KELLY BAÑUELOS RN Signed: 11/29/2023 11:11 11/24/2023 ADDENDUM STATUS: COMPLETED [facility] Scanned Document - Addendum. Community Care Consult: COMMUNITY CARE-Endocrinology Consult No: [id number] Date sent to scanning: Nov FERNANDO New-Endocrinology SCANNED DOCUMENT SIGNATURE NOT REQUIRED Electronically Filed: 12/03/2023 by: KELLY SRIVASTAVA LPN [facility]
--- OUTSIDE RECORDS SUMMARY | 2024-01-04 09:42 | XMS_ITS | Encounter Summary ---
Author Name [facility] Organization [facility] Address [address] [place] [id number] Care Team Providers Care Implementation Services Analyst Name Role Phone FELICE MESSINA Primary Care [...] PART A Nov 03, 2022 PART A [id number] [phone] Wilda MCLAUGHLINMEL PATIENT MEDICARE (WNR) MEDICARE (M) PART B Nov 03, 2022 PART B [id number] Wilda MCLAUGHLIN PATIENT -FO R-LIFE TR[place] RE FOR LIFE WNR Nov 03, 2022 FOR LIFE [id number] [phone] LINAEWilda BOOGIE PATIENT Selected Encounter This section includes the information on record at [place] for the Encounter. Date/Time Encounter Type Encounter Description Reason Pro vider Source Jan 04, 2024 02:42 PM Outpatient Encounter ADMIN PAT ACTIVTIES (MASNONCT) [facility] Encounter Template Text not used by [facility] Plan of Treatment: Future Appointments (+ 6 months) and Future Tests (+/- 45 days) The Plan of Treatment section includes future care activities for the [facility] [place] [facility] This section includes future appointments and future orders which are active, pending or scheduled. Future Appointments This section includes appointments that were scheduled to occur 6 months from the date of the Encounter, up to a maximum of 20 appointments. The data comes from all [facility]. Appointment Date/Time Appointment Type Appointme nt Facility Name Jan 06, 2024 01:00 PM AMBULATORY - MEDICINE [facility] Mar 21, 2024 11:00 AM AMBULATORY - MEDICINE [facility] Apr 06, 2024 10:45 AM AMBULATORY - MEDICINE [facility] Active, Pending, and Scheduled Orders This section includes a listing of several types of active, pending, and scheduled orders, including clinic medications orders, diagnostic test orders, procedure orders and consult orders; where the start date of the order is 45 days before the date of the Encounter or 45 days after the date of theEncounter. The data comes from all [facility]. Test Date/Time Test Type Test Details Facility Name Nov 26, 2023 03:15 PM Consult Order [facility]HEMODIALYSIS [id number] Cons Co [facility] Jan 05, 2024 12:00 AM Laboratory - Chemistry Order COMPREHENSIVE METABOLIC PANEL GREEN LI/HEP BLD/PLAS PLASMA [facility] Jan 05, 2024 12:00 AM Laboratory - Chemistry Order CHOLESTEROL PANEL (PB) GREEN LI/HEP BLD/PLAS PLASMA [facility] Jan 05, 2024 12:00 AM Laboratory - Chemistry Order PROST. SPECIFIC AG.(PB-STL) GOLD/RED SST [facility] Jan 05, 2024 12:00 AM Laboratory - Chemistry Order TSH (MA-PB) GOLD/RED SST [facility] Jan 05, 2024 12:00 AM Laboratory - Chemistry Order URINALYSIS (STL-PB) URINE [facility] Jan 05, 2024 12:00 AM Laboratory - Chemistry Order VITAMIN D, 25-HYDROXY GOLD/RED SST [facility] Jan 05, 2024 12:00 AM Laboratory - Chemistry Order HGA1C BLOOD [facility] Jan 05, 2024 12:00 AM Laboratory - Chemistry Order CBC BLOOD SP [facility] Social History: Smoking Status (Most current) and Tobacco Use (All prior to encounter date) This section includes the most current, and the historical, smoking and tobacco- related health factors from the [place] facility where the Encounter took place. Current Smoking Status This section includes the most current smoking, or tobacco-related health factor, from the [place] facility where the Encounter took place. Date/Time Current Smoking Status Comment Facil ity Oct 23, 2021 10:00 AM VA-TOBACCO NEVER USED [facility] Tobacco Use History This section includes a history of the smoking, or tobacco-related health factors, that were collected on or before the date of the Encounter. The data comes from the [place] facility where the Encounter took place. Date/Time Smoking Status/Tobacco Use Comment F acility Sep 16, 2020 01:30 PM VA-TOBACCO NEVER USED [facility] Dec 30, 2018 11:59 AM VA-TOBACCO NEVER USED [facility] Jan 28, 2018 08:51 AM VA-TOBACCO NEVER USED [facility] Sep 21, 2007 10:48 AM QUIT TOBACCO >7 YEARS AGO [facility] August 26, 2007 08:06 AM LIFETIME NON-USER OF TOBACCO [facility] Oct 05, 2005 08:11 AM CURRENT NON-TOBACCO USER-HX OF [facility] Apr 15, 2005 03:08 PM CURRENT NON-TOBACCO USER-HX OF [facility] Mar 31, 2004 11:38 AM LIFETIME NON-TOBACCO USER [facility] Jan 23, 2003 03:08 PM LIFETIME NON-TOBACCO USER [facility] Sep 25, 2002 09:07 AM CURRENT NON-TOBACCO USER-HX OF U [facility] Sep 16, 2000 11:56 AM LIFETIME NON-TOBACCO USER [facility] Encounter Notes: All associated encounter notes This section contains the clinical notes associated to the Encounter. Date/Time Encounter Note(s) Provider Source Jan 04, 2024 02:42 PM GENERAL MEDICINE N OTE: LOCAL TITLE: General Note PB STANDARD TITLE: GENERAL MEDICINE NOTE DATE OF NOTE: JAN 04, 2024@14:42 ENTRY DATE: JAN 04, 2024@14:42:47 AUTHOR: FRANSISCA JOSEPH EXP COSIGNER: URGENCY: STATUS: COMPLETED Eye Care At-Risk Screen : Patient identified to be at risk for the following eye condition(s): DIABETIC RETINOPATHY: Diabetes Diagnosis Information: Encounter Diagnosis: 03/12/2023@11:12:04 E11.9 (ICD-10-CM) Type 2 Diabetes Mellitus without Complications rank: PRIMARY Prov. Narr. - Diabetes Mellitus Type 2 ([facility] [id number]) MACULAR DEGENERATION: Macular Degeneration Risk Factors Information: Reminder Term: VA-AMD RISK FACTORS Encounter Diagnosis: 10/27/2022@13:00 I25.10 (ICD-10-CM) Atherosclerotic Heart Disease of [place] Coronary Artery without Angina Pectoris rank: SECONDARY Prov. Narr. - Coronary artery disease ([facility] [id number]) Action: No Referral Ordered: Eye exam completed elsewhere by an Channel Cementer Outsole Machine or Founder And Chief Technical Officer Diabetic retinal exam result: Negative for Retinopathy Date: August 26, 2023 Location: [facility] /monique/ FRANSISCA JOSEPH Telehealth Clinical Ruching Machine Operator Signed: 01/04/2024 14:43 FRANSISCA JOSEPH [facility]
--- OUTSIDE RECORDS SUMMARY | 2024-01-06 08:00 | XMS_ITS | Encounter Summary ---
Author Name [facility] [place] [facility] [place] Address [address] [place] [id number] Care Team Providers Care Finisher Special Stocks Name Role Phone FELICE MESSINA Primary Care [...] PART A Nov 03, 2022 PART A [id number] [phone] Wilda MCLAUGHLIN PATIENT MEDICARE (WNR) MEDICARE (M) PART B Nov 03, 2022 PART B [id number] Wilda MCLAUGHLIN PATIENT -FO R-LIFE TRICA RE FOR LIFE WNR Nov 03, 2022 FOR LIFE [id number] Wilda MCLAUGHLIN PATIENT Selected Encounter This section includes the information on record at [place] for the Encounter. Date/Time Encounter Type Encounter Description Reason Provider Source Jan 06, 2024 01:00 PM IMMUNIZATION ADMIN PRIMARY CARE/MEDICINE ICD-10-CM E78.49 Other hyperlipidemia JENIFFER MESSINA Encounter Template Text not used by [facility] Assessments - Encounter Diagnoses This section includes the primary and secondary diagnoses documented for the Encounter. Date/Time Primary/Secondary Diagnosis Diagnosis Name Provider Source Jan 09, 2024 04:13 PM PRIMARY Other hyperlipidemia ERNESTO MESSINA [facility] Jan 09, 2024 04:13 PM SECONDARY Encounter for general adult medical exam w abnormal findings ERNESTO MESSINA [facility] Jan 09, 2024 04:13 PM SECONDARY Encounter for immunization MINERVA CHERY [facility] Jan 09, 2024 04:13 PM SECONDARY Type 2 diabetes mellitus without complications ERNESTO MESSINA [facility] Jan 09, 2024 04:13 PM SECONDARY Unspecified kidney failure ERNESTO MESSINA [facility] Plan of Treatment: Future Appointments (+ 6 months) and Future Tests (+/- 45 days) The Plan of Treatment section includes future care activities for the patient from all [place] [facility] This section includes future appointments and future orders which are active, pending or scheduled. Future Appointments This section includes appointments that were scheduled to occur 6 months from the date of the Encounter, up to a maximum of 20 appointments. The data comes from all [place] [facility]. Appointment Date/Time Appointment Type Appointme nt Facility Name Mar 21, 2024 11:00 AM AMBULATORY - MEDICINE [facility] Apr 06, 2024 10:45 AM AMBULATORY - MEDICINE [facility] Active, Pending, and Scheduled Orders This section includes a listing of several types of active, pending, and scheduled orders, including clinic medications orders, diagnostic test orders, procedure orders and consult orders; where the start date of the order is 45 days before the date of the Encounter or 45 days after the date of theEncounter. The data comes from all [facility]. Test Date/Time Test Type Test Details Facility Name Nov 26, 2023 03:15 PM Consult Order COMMUNITY CARE-HEMODIALYSIS [id number] Cons Manager Marketing's Choice [facility] Jan 05, 2024 12:00 AM Laboratory - Chemistry Order CHOLESTEROL PANEL (PB) GREEN LI/HEP BLD/PLAS [facility] Jan 05, 2024 12:00 AM Laboratory - Chemistry Order PROST. SPECIFIC AG.(PB-STL) GOLD/RED [facility] Jan 05, 2024 12:00 AM Laboratory - Chemistry Order TSH (MA-PB) GOLD/RED [facility] Jan 05, 2024 12:00 AM Laboratory - Chemistry Order COMPREHENSIVE METABOLIC PANEL GREEN LI/HEP BLD/PLAS [facility] Jan 05, 2024 12:00 AM Laboratory - Chemistry Order URINALYSIS (STL-PB) URINE [facility] Jan 05, 2024 12:00 AM Laboratory - Chemistry Order VITAMIN D, 25-HYDROXY GOLD/RED [facility] Jan 05, 2024 12:00 AM Laboratory - Chemistry Order CBC BLOOD [facility] Jan 05, 2024 12:00 AM Laboratory - Chemistry Order [id number] BLOOD [facility] Vital Signs: All taken on the encounter date This section contains inpatient and outpatient Vital Signs collected on the date of the Encounter. Date/Time Temperature Pulse Blood Pressure Respiratory Rate SP02 Pain Height Weight Body Mass Index Source Jan 06, 2024 01:23 PM 198/96 [facility] Jan 06, 2024 01:23 PM 198/98 [facility] Jan 06, 2024 01:20 PM 97.8 68 214/99 95 [facility] Jan 06, 2024 01:18 PM 69 18 95 0 70.0 227.5 33 [facility] Immunizations: All administered on the encounter date This section contains immunizations associated to the Encounter. Immunization Series Date Issued Administered By Site Reaction Lot Number CVX Code Drug Inspector [employer] Comment(s) Source INFLUENZA, HIGH-DOSE, TRIVALENT, PF Jan 06, 2024 MINERVA CHERY LEFT DELTO ID [id number] A 135 [facility] Social History: Smoking Status (Most current) and Tobacco Use (All prior to encounter date) This section includes the most current, and the historical, smoking and tobacco- related health factors from the [place] facility where the Encounter took place. Current Smoking Status This section includes the most current smoking, or tobacco-related health factor, from the [place] facility where the Encounter took place. Date/Time Current Smoking Status Comment Samreen simmons Jan 06, 2024 01:00 PM [place]-TOBACCO NEVER USED [facility] Tobacco Use History This section includes a history of the smoking, or tobacco-related health factors, that were collected on or before the date of the Encounter. The data comes from the [place] facility where the Encounter took place. Date/Time Smoking Status/Tobacco Use Comment F acility Oct 23, 2021 10:00 AM [place]-TOBACCO NEVER USED [facility] Sep 16, 2020 01:30 PM VA-TOBACCO NEVER USED [facility] Dec 30, 2018 11:59 AM VA-TOBACCO NEVER USED [facility] Jan 28, 2018 08:51 AM VA-TOBACCO NEVER USED [facility] Sep 21, 2007 10:48 AM QUIT TOBACCO >7 YEARS AGO [facility] August 26, 2007 08:06 AM LIFETIME NON-USER OF TOBACCO [facility] Oct 05, 2005 08:11 AM CURRENT NON-TOBACCO USER-HX OF [facility] Apr 15, 2005 03:08 PM CURRENT NON-TOBACCO USER-HX OF [facility] Mar 31, 2004 11:38 AM LIFETIME NON-TOBACCO USER [facility] Jan 23, 2003 03:08 PM LIFETIME NON-TOBACCO USER [facility] Sep 25, 2002 09:07 AM CURRENT NON-TOBACCO USER-HX OF [facility] Sep 16, 2000 11:56 AM LIFETIME NON-TOBACCO USER [facility] Encounter Notes: All associated encounter notes This section contains the clinical notes associated to the Encounter. Date/Time Encounter Note(s) Provider Source Jan 06, 2024 01:42 PM PRIMARY CARE PROGR ESS NOTE: LOCAL TITLE: PRIMARY CARE CLINIC PROGRESS NOTE PB STANDARD TITLE: PRIMARY CARE PROGRESS NOTE DATE OF NOTE: JAN 06, 2024@13:42 ENTRY DATE: JAN 06, 2024@13:42:48 AUTHOR: FELICE MESSINA COSIGNER: URGENCY: STATUS: COMPLETED PROVIDER ASSESSMENT DATE & TIME:Jan@13:42 CHIEF COMPLAINT: Annual physical. HISTORY OF PRESENT ILLNESS: Industry is being seen for his annual physical. Industry is continuing to have dialysis on //. will not have labs today as he has them done on a regular basis for dialysis and through his molded rubber goods cutter. is hypertensive this morning but states his medication gets dialized out. He states he is given clonidine by the molded rubber goods cutter to take when this happens. He has not taken any today and has some at home. Industry will take this later. will have his flu shot today. denies any home needs or health concerns. 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: 1) Coronary artery disease (SNOMED CT 29270983) 2) Hyperlipidemia (SNOMED CT 49269339) 3) Chronic kidney disease stage 5 4) Diabetes Mellitus Type 2 (SCT 87514043) 5) Carotid bruit 6) RF - Renal failure 7) Dependence on dialysis due to end stage renal disease 8) Erectile Dysfunction (SCT 577063946) 9) Exposure to potentially hazardous substance Active Outpatient Medications (including Supplies): Active Outpatient Medications Status 1) SILDENAFIL CITRATE 100MG TAB TAKE ONE TABLET BY MOUTH ACTIVE ONE HOUR PRIOR TO SEXUAL ACTIVITY FOR ERECTILE DYSFUNCTION NEEDED - LIMIT 6 DOSES PER 30 DAYS Active Non-VA Medications Status 1) Non-VA CALCITRIOL 0.5MCG CAP 1MCG BY MOUTH ONCE A DAY ACTIVE 2) Non-VA CHOLECALCIF 50MCG (D3-2,000UNIT) TAB 2000UNIT ACTIVE BY MOUTH ONCE A DAY 3) Non-VA FERROUS SULFATE 325MG TAB 325MG BY MOUTH ACTIVE 4) Non-VA HYDRALAZINE HCL 100MG TAB 100MG BY MOUTH THREE ACTIVE TIMES A DAY 5) Non-VA INSULIN DEGLUDEC FLEXTOUCH (PA-F) INJ 35 UNITS ACTIVE UNDER THE SKIN ONCE A DAY 6) Non-VA INSULIN LISPRO (EQV-HUMALOG) 100 UNIT/ML 15 ACTIVE UNITS UNDER THE SKIN THREE TIMES A DAY 7) Non-VA NIFEDIPINE (EQV-CC) 30MG SA TAB 30MG BY MOUTH ACTIVE ONCE A DAY 8) Non-VA ROSUVASTATIN CA 20MG TAB 10MG BY MOUTH EVERY ACTIVE EVENING 9 Total Medications REVIEW OF SYSTEMS: HEENT: No Headache. No blurry vision, vision loss, eye pain, red eyes, or foreign body. No runnynose, congestion, or nose bleed. No hearing loss, ringing in the ears, or vertigo. No sore throat or dental pain. RESPIRATORY: No cough, SOA, wheezing, or sputum production. CARDIOVASCULAR: No chest pain, palpitations, tachycardia, PND, or orthopnea. GI: No abdominal pain, nausea, vomiting, diarrhea, constipation, melena, or hematochezia. : No dysuria, hematuria, urinary frequency, weak stream, or post-void dribbling. MUSCULOSKELETAL:chronic joint pain. SKIN: No rash, lesions, or infection PSYCH: No Depression or Anxiety. Not suicidal. PHYSICAL ASSESSMENT: VITAL SIGNS Pulse: 68 (01/06/2024 13:20) Blood Pressure: 198/96 (01/06/2024 13:23) Respiratory Rate: 18 (01/06/2024 13:18) Temperature: 97.8 F [36.6 C] (01/06/2024 13:20) Weight: 227.5 lb [103.19 kg] (01/06/2024 13:18) Height: 70.0 in [177.8 cm] (01/06/2024 13:18) Pain: 0 (01/06/2024 13:18) HEENT:PERRL, EOMI, Fundi benign, TM's clear, Pharynx not red and without exudate, tonsils normal size. NECK: Supple, no lymhadenopathy, thyroid normal. CARDIAC: Regular rate and rhythm without murmur. No edema. RESPIRATORY: CTA, BEBS GI: Abdomen soft,with ABS, no HSM, no guarding or rebound. MUSCULOSKELETAL:Chronic joint pain with no acute change. FROM. SKIN: [place] without rash or lesions. NEUROLOGICAL: The is alert and oriented without distress. Affect appropriate. IMPRESSION: Encounter for General Adult Medical Exam Hyperlipidemia-stable Renal Failure-current Diabetes Mellitus Type II-stable PLAN: Elevate feet while sitting. Labs through molded rubber goods cutter. Take blood pressure medication when home. RTC in one year or sooner if needed. Patient is advised this primary care clinic has open access and he can make a same day appointment anytime a problem/concern arises. Patient further advised he can be seen on a walk-in basis as needed. Patient is provided clinic contact information. Medications reviewed and reconciled. Discussed diet and exercise as relevant to patient conditions. Treatment plan as noted above and the After Visit Summary was reviewed with ; opportunity provided to report concerns and ask question regarding aspects of care or treatment or services; concurrence reached and verbalized understanding. Please refer to addendum or follow up lab letter for plan of care/changes related to lab/test results not available at conclusion of appointment, if any. Discussed with patient that in the event of community imaging / testing being ordered in the future, once the imaging / testing has been completed, please notify PACT of within 1 week by a VA PACT member; this is due to intermittent lapses in notification of imaging completion within CPR[facility]. All questions answered; agrees to plan of care. Follow up as listed above, annually, and as needed. Keep all completion at outside facility if not called with results appointments. Medications Reconciled. Time spent 30 minutes. Screen for Abd Aortic Aneurysm: Order Ultrasound Diabetes Lipid Profile: Lipid profile ordered for patient. *Microalbumin Test: Patient is being followed by an outside neprhologist. Diabetes Hemoglobin A1c: * HbA1c ordered for patient. Weight Control/Nutrition Counseling: * The patient received the following counseling at this encounter: Patient was encouraged to restrict fat, especially saturated fats, in a normal diet. Benefit of a diet high in fiber was discussed. Patient was advised to include 5 or more servings of fruit and vegetables and six or more servings of grains as a well balanced diet. HTN Assess for Elevated BP>=140/90: The patient's current medication regimen is appropriate based on the patient's concomitant cardiovascular risk factors and/or other comorbidities. Comment: End Stage Renal Disease (ESRD) The patient was counseled on the importance of regular exercise and/or physical activity in the control of blood pressure. The patient was instructed to try to participate in 120 minutes of aerobic exercise per week if possible and that any increase in physical activity may be useful in controlling blood pressure. The patient was counseled on the importance of diet and weight loss/ control in the regulation of blood pressure. The patient was counseled to reduce their weight to within 10 percent of their ideal body weight. The possible improvement in blood pressure control with even 5 to 10 pounds of weight loss was reviewed. The contribution of dietary sodium to elevated blood pressure was reviewed. The patient was counseled to have a goal sodium intake of 1500mg per day, with no more than 2300mg per day. The patient was counseled that a diet low in dietary saturated and trans fats is beneficial in lowering blood pressure. The patient was counseled that a diet rich in fresh fruits, vegetables and whole grains is beneficial in lowering blood pressure. Diabetes Lipid Profile: Patient reports lipid profile done elsewhere. Location: Unknown Date: 2023 ? Exact date is unknown Screen for Abd Aortic Aneurysm: Order Ultrasound /es/ [facility] Signed: 01/09/2024 16:09 FELICE MESSINA [facility] Jan 06, 2024 01:25 PM PRIMARY CARE NURSI NG NOTE: LOCAL TITLE: PRIMARY CARE NURSING PROGRESS NOTE (TEXT) NURSING P STANDARD TITLE: PRIMARY CARE NURSING NOTE DATE OF NOTE: JAN 06, 2024@13:25 ENTRY DATE: JAN 06, 2024@13:25:48 AUTHOR: MINERVA CHERY EXP COSIGNER: URGENCY: STATUS: COMPLETED Established Patient CRISTIN MCLAUGHLIN IS A 68 YEAR OLD MALE BEING SEEN IN CLINIC JAN 06, 2024. == == REASON FOR VISIT: Industry here for his annual appt. states he is a dialysis patient and gets dialysis every other day. He goes tomorrow. His BP is elevated and states it is elevated a lot d/t taking his bp meds at . Are you receiving care any where other than the [place]? No HEALTH AND SURGICAL HISTORY: Does patient report using home oxygen? No CURRENT ACTIVE MEDICATIONS FOR REVIEW: Allergies/ADRs (Tool #5) FACILITY ALLERGY/ADR -------- No Remote Allergy/ADR Data available for this patient [facility] No Known Allergies Med. Reconciliation (Tool #1) INCLUDED IN THIS LIST: Alphabetical list of active outpatient prescriptions dispensed from this VA (local) and dispensed from another VA or DoD facility (remote) as well as inpatient orders (local pending and active), local clinic medications, locally documented non-VA medications, and local prescriptions that have or been discontinued in the past 90 days. Non-VA Meds Last Documented On: Apr 28, 2022 NOTE The display of VA prescriptions dispensed from another VA or DoD facility (remote) is limited to active outpatient prescription entries matched to National Drug File at the originating site and may not include some items such as investigational drugs, compounds, etc. NOT INCLUDED IN THIS LIST: Medications self-entered by the patient into personal health records (i.e. [employer]) are NOT included in this list. Non-VA medications documented outside this [place], remote inpatient orders (regardless of status) and remote clinic medications are NOT included in this list. The patient and provider must always discuss medications the patient is taking, regardless of where the medication was dispensed or obtained. Non-VA CALCITRIOL 0.5MCG CAP TAKE 2 CAPSULES BY MOUTH ONCE A DAY Medication prescribed by Non-VA provider. Non-VA CHOLECALCIF 50MCG (D3-2,000UNIT) TAB TAKE ONE TABLET BY MOUTH ONCE A DAY Medication prescribed by Non-VA provider. Non-VA FERROUS SULFATE 325MG TAB TAKE ONE TABLET BY MOUTH Medication prescribed by Non-VA provider. once a week Non-VA HYDRALAZINE HCL 100MG TAB TAKE ONE TABLET BY MOUTH THREE TIMES A DAY Medication prescribed by Non-VA provider. Non-VA INSULIN DEGLUDEC FLEXTOUCH (PA-F) INJ INJECT 35 UNITS UNDER THE SKIN ONCE A DAY Medication prescribed by Non-VA provider. Non-VA INSULIN LISPRO (EQV-HUMALOG) 100 UNIT/ML INJECT 15 UNITS UNDER THE SKIN THREE TIMES A DAY Medication prescribed by Non-VA provider. 8-15 units sliding scale Non-VA NIFEDIPINE (EQV-CC) 30MG SA TAB TAKE ONE TABLET BY MOUTH ONCE A DAY Medication prescribed by Non-VA provider. Non-VA ROSUVASTATIN CA 20MG TAB TAKE ONE-HALF TABLET BY MOUTH EVERY EVENING Medication prescribed by Non-VA provider. OUTPT SILDENAFIL CITRATE 100MG TAB (Status = Discontinued) TAKE ONE TABLET BY MOUTH ONE HOUR PRIOR TO SEXUAL ACTIVITY FOR ERECTILE DYSFUNCTION NEEDED - LIMIT 6 DOSES PER 30 DAYS Rx# [id number] Last Released: 10/28/22 Qty/Days Supply: Rx Expiration Date: 10/28/23 Refills Remainin Indication: FOR ERECTILE DYSFUNCTION OUTPT SILDENAFIL CITRATE 100MG TAB (Status = Active) TAKE ONE TABLET BY MOUTH ONE HOUR PRIOR TO SEXUAL ACTIVITY FOR ERECTILE DYSFUNCTION NEEDED - LIMIT 6 DOSES PER 30 DAYS Rx# [id number] Last Released: 12/29/23 Qty/Days Supply: Rx Expiration Date: 12/24/24 Refills Remainin Indication: FOR ERECTILE DYSFUNCTION SUPPLIES OUTPT GLUCOSE SENSOR DEXCOM G6 (Status = Discontinued) USE 1 SENSOR UNDER THE SKIN USE DIRECTED . CHANGE SENSOR/SITE EVERY 10 DAYS. CONTACT [employer] CUSTOMER SERVICE AT FOR REPLACEMENT OF DAMAGED/MALFUNCTIONING SENSORS. Rx# [id number] Last Released: 10/25/23 Qty/Days Supply: 07/02 Rx Expiration Date: 08/09/24 Refills Remainin OUTPT GLUCOSE SENSOR DEXCOM G6 (Status = Discontinued) USE 1 SENSOR UNDER THE SKIN EVERY 10 DAYS CHANGE SENSOR/SITE EVERY 10 DAYS. CONTACT [facility] CUSTOMER SERVICE AT FOR REPLACEMENT OF DAMAGED/MALFUNCTIONING SENSORS. Rx# [id number] Last Released: 11/22/23 Qty/Days Supply: 07/02 Rx Expiration Date: 11/18/24 Refills Remainin PHARMACY TERMS AND POSSIBLE PATIENT ACTIONS INPT = [place] inpatient order IV = [place] intravenous medication OUTPT = [place] outpatient prescription PHARMACY POSSIBLE PATIENT TERMS EXPLANATION ACTIONS -------- ----- ACTIVE A prescription that can be If you have refills, filled at the local [place] pharmacy. you may request a refill of this prescription from your [place] pharmacy. CLINIC A medication you received during If you have questions a visit to a [place] clinic or about this medication emergency department. contact your VA healthcare team. DISCONTINUED A prescription your provider has Contact your VA stopped. It is no longer healthcare team if you available to be sent to you or need more of this picked up at the [place] pharmacy medication. window. A prescription which is too old Contact your VA to fill. This does not refer to healthcare team if you the expiration date of the need more of this medication in the container. medication. NON-VA A medication that came from If this medication someplace other than a VA information is pharmacy. This may be a incorrect or out of prescription from either the VA date, please tell your or non VA providers that was VA healthcare team. filled outside the VA. Or, it may be an [id number] (OTC), herbal, dietary supplements or sample medication. ON HOLD An active prescription that will Contact your VA not be filled until pharmacy pharmacy when you need resolves the issue. more of this medication. PARKED An active prescription that will Contact your VA not be filled until the patient pharmacy when you need requests it. this medication. PENDING This prescription order has been If you have been sent to the pharmacy for review instructed to start and is not ready yet. this medication now, contact your VA pharmacy. SUSPENDED An active prescription that is Contact your VA not scheduled to be filled yet. pharmacy if you need You should receive it before this medication now. you run out. Patient reports taking medications as ordered. IS PATIENT TAKING ANY OVER THE COUNTER MEDICATIONS, SUCH VITAMINS OR HERBAL SUPPLEMENTS, INCLUDING ANY MEDICATIONS PRESCRIBED BY ANOTHER PHYSICIAN? No ALLERGIES/ADVERSE REACTIONS: Patient has answered NKA Does patient have any new allergies to report since last visit? NO VITALS: TEMPERATURE: 97.8 F [36.6 C] (01/06/2024:20) BP: 198/96 (01/06/2024 13:23) RESP: 18 (01/06/2024:18) PULSE: 68 (01/06/2024:) HT: 70.0 in [177.8 cm] (01/06/2024:18) WT: 227.5 lb [103.19 kg] (01/06/2024:) BMI: 32.7 PAIN ASSESSMENT: (Most Recent Pain Score in Vitals Package: 0 (01/06/2024 13:18) ) The patient indicated that they and their close contacts have not traveled outside of the [place] in the past 21 days. The patient reports the following symptoms: No symptoms present The patient is not immunocompromised. The patient does not report having a history of Multi Drug Resistant Organism (MDRO) within the last five years. The patient does not report having been exposed to measles, chickenpox, or zoster in last 30 days. Patient reports no pain at this visit. Pain Score = 0. STRESS: Thank you for your service. Now let us serve you. At the [facility], we strive to provide you with exceptional health care that improves your health and well-being. Are you feeling sad, empty, or depressed? No Do you need to talk about things in your life that worry you or cause you stress? No Do you need to talk about personal problems, family problems, alcohol use, drug use, or mental or emotional illness? No SUICIDE SCREENING: The patient was asked, Over the past two weeks, how often have you been bothered by thoughts that you would be better off or of hurting yourself in some way? 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 No Patient advised to call the clinic for any concerns, questions, or symptoms. Patient and/or caregiver verbalized understanding of plan of care. Suicide Screen: C-SSRS Screening [place]-Suicide Severity Rating Scale (C-SSRS Screener) 1. Over the past month, have you wished you were or wished you could go to sleep and not wake up? No 2. Over the past month, have you had any actual thoughts of killing yourself? No 3. Over the past month, have you been thinking about how you might do this? Response not required due to responses to other questions. 4. Over the past month, have you had these thoughts and had some intention of acting on them? Response not required due to responses to other questions. 5. Over the past month, have you started to work out or worked out the details of how to kill yourself? Response not required due to responses to other questions. 6. If yes, at any time in the past month did you intend to carry out this plan? Response not required due to responses to other questions. 7. In your lifetime, have you ever done anything, started to do anything, or prepared to do anything to end your life (for example, collected pills, obtained a gun, gave away valuables, went to the roof but didn't jump)? No 8. If YES, was this within the past 3 months? Response not required due to responses to other questions. Screen for Abd Aortic Aneurysm: Order Ultrasound Sexual Orientation: The patient thinks of their sexual orientation as: Straight or Heterosexual Alcohol Use Screen (AUDIT-C): Alcohol Screen: SCREEN FOR ALCOHOL (AUDIT-C) An alcohol screening test (AUDIT-C) was negative (score=0). 1. How often did you have a drink containing alcohol in the past year? Consider a drink to be a 12 ounce can or bottle of regular beer, 8 ounces of malt liquor, a 5 ounce glass of table wine, or a 1.5 ounce shot of liquor (like scotch, gin, or vodka). Never 2. How many drinks containing alcohol did you have on a typical day when you were drinking in the past year? Response not required due to responses to other questions. 3. How often did you have six or more drinks on one occasion in the past year? Response not required due to responses to other questions. Depression Screening: Perform PHQ-2 A PHQ-2 screen was performed. The score was 0 which is a negative screen for depression. Over the past two weeks, how often have you been bothered by the following problems? 1. Little interest or pleasure in doing things Not at all 2. Feeling down, depressed, or hopeless Not at all Tobacco Use Screening: The patient has never used tobacco. Homelessness/Food Insecurity Screen: In the past 2 months, have you been living in stable housing that you own, rent, or stay in as part of a household? Yes - Living in stable housing. Are you worried or concerned that in the next 2 months you may NOT have stable housing that you own, rent, or stay in as part of a household? No - Not worried about housing near future The Industry reports the following: Within the past 12 months, you worried whether your food would run out before you got money to buy more. Never true Within the past 12 months, the food you bought just didn't last and you didn't have money to get more. Never true Influenza Immunization: Influenza, High-Dose, Trivalent, Preservative Free (Fluzone-Syringe) Administered: INFLUENZA, HIGH-DOSE, TRIVALENT, PF Date Administered: Jan 06, 2024 13:00 [employer]: SANOFI PASTEUR Lot: [id number] Exp Date: Oct 02, 2024 [facility]: [id number] Admin Route/Site: INTRAMUSCULAR/LEFT DELTOID Dosage: 0.5mL Vaccine Information Statement(s): INFLUENZA(FLU) VACC(INACTIVATED OR RECOMBINANT)VIS Nov 08, 2020 (KHMER) Order By: Policy Administered By: Minerva Chery The Influenza Vaccine Information Statement (VIS) was reviewed with the patient/caregiver which lists the benefits and risks of the vaccine and the risks of not receiving the Influenza vaccine. The patient/caregiver denied any prior severe reaction to this vaccine or its components or a severe allergic reaction, such as anaphylaxis, to any vaccine or any injectable therapy. The patient/caregiver gave verbal consent to receive the vaccine. PTSD Screening: PC-PTSD-5 A PTSD screening test (PC-PTSD-5) was negative (score=0). IN THE PAST MONTH, have you ever had any experience that was so frightening, horrible or traumatic. For example: A serious accident or fire a physical or sexual assault or abuse An earthquake or flood A war Seeing someone be killed or seriously injured Having a loved one through homicide or suicide 1. Have you ever experienced this kind of event? YES 2. Had nightmares about the event(s) or thought about the event(s) when you did not want to? NO 3. Tried hard not to think about the event(s) or went out of your way to avoid situations that reminded you of the event(s)? NO 4. Been constantly on guard, watchful, or easily startled? NO 5. [place] numb or detached from people, activities, or your surroundings? NO 6. [place] guilty or unable to stop blaming yourself or others for the event(s) or any problems the event(s) may have caused? 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 Patient does not wish to make any changes to the Advance Directive at this time. ADVANCE DIRECTIVE NOTIFICATION I provided the patient with written notification about advance directives. Level of understanding: MOVE Weight Management: Most recent BMI: 32.7. Industry educated on health risk of obesity and treatment is offered. Participation in a weight management program was considered/offered for this patient based on the current BMI score. Patient declines participation in a weight management program. Pneumococcal PPSV23 (Pneumovax): The patient declines to receive the recommended dose of PPSV23 vaccine. Immunization: PNEUMOCOCCAL POLYSACCHARIDE PPV23 Refusal Reason: PATIENT DECISION Patient refuses all immunization(s) in the PneumoPPV group Date Documented: 01/06/24 13:36 Pain Assessment: - PAIN ASSESSMENT: .. Patient reports no pain at this visit. Pain Score = 0. Patient's self identified pain goal: 0 HIV Screening-Routine: Patient has been offered HIV testing and has declined. I have explained that HIV testing is recommended for all adults, even if all risk factors are absent. VVC DIGITAL DIVIDE CAPABILITY REMINDER: Patient is not interested in VVC at this time. 'S RIGHT TO DECLINE STATEMENT Industry understands they have the right to decline the use of Telehealth Technology at any time without adverse affects on their continued access to healthcare. PAVE Foot Check: Patient indicates foot exam (including monofilament test for sensation) was performed in the past year in the private sector: Date: January 05, 2024 Result: Normal PC [facility] MAP: PERSONAL HEALTH PLAN INVENTORY & MAP Industry's Response: Family /es/ MINERVA CHERY LPN Signed: 01/06/2024 13:38 MINERVA CHERY [facility]
--- NOTE | 2024-10-18 15:33 | XRR_ITS ---
PROCEDURE INFORMATION: Exam: XR Chest Exam date and time: 10/18/2024 3:34 PM Age: 68 years old Clinical indication: Pain; Angina pectoris; Additional info: Cp TECHNIQUE: Imaging protocol: Radiologic exam of the chest. Views: 1 view. COMPARISON: CR XR chest 2V* [id number] 11/16/2022 3:52 PM FINDINGS: Lungs: Unremarkable. No consolidation or mass. Pleural spaces: Unremarkable. No pleural effusion. No pneumothorax. Heart/Mediastinum: Mild cardiomegaly is noted. Bones/joints: Unremarkable. XR/XR chest 1V portable [id number] IMPRESSION: Stable cardiomegaly
--- NOTE | 2024-10-18 15:33 | ECG_ITS ---
[place] Test Date: 2024-10-18 Pat Name: [place] Department: Room: Gender: Male Pediatric Licensed Practical Nurse: : 1955 Requested By: Sammy Almazan Order Number: [id number] Kevin MD: Dina Constantino M.D. Measurements Intervals [place] Rate: 75 P: 27 WA: 173 QRS: -19 QRSD: 88 T: 20 QT: 378 QTc: 423 Interpretive Statements SINUS RHYTHM WITH FREQUENT SUPRAVENTRICULAR PREMATURE COMPLEXES POSSIBLE ANTERIOR MYOCARDIAL INFARCTION , OF INDETERMINATE AGE [30 ms Q WAVE IN V3/V4, OR R < 0.2 mV IN V4] Compared to ECG 05/07/2021 18:20:10 No significant changes Electronically Signed On 10-18-2024 16:40:07 CDT by Dina Constantino M.D. [email or web address]
[2024-10-18 15:36] VITALS: BP 133/75; PULSE 75; RESP 17; TEMP 36.9; O2SAT 97; BMI 30.9
--- OUTSIDE RECORDS SUMMARY | 2024-10-18 15:38 | XMS_ITS | Continuity of Care Document ---
Author Name [facility] Organization [facility] Care Team Providers Care What Job Titles Mean Name Role Phone [facility] Unavailable Unavailable Problems Combined list of problems from Department of Defense and Veterans Affairs facilities. It does not include entries that were removed or entered in error. 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 Hyperlipidemia (SNOMED CT 32645201) Active Condition [place] [facility] RF - Renal failure Active Condition [facility] Unresolved Inactive Condition 04/28/2022 [place] [facility] Diagnosis: ICD-10-CM E11.9 Type 2 diabetes mellitus without complications Active Diagnosis [facility] [facility] Diagnosis: ICD-10-CM E78.49 Other hyperlipidemia Active Diagnosis [facility] Medications Combined list of outpatient medications from Department of [facility] and Veterans Affairs facilities.Medications provided include 1) outpatient medications from the last 15 months, and 2) patient-reported medications. Medication Details Route Status Patient Instructions Prescription Expires Prescription Number Last Dispense Date Ordering Provider Order Date Order Qty Source BUMETANIDE (bumetanide ), 1 MG, TABLET, ORAL, AMNEAL PHARMACE, 100 ea. BOTTLE Active [id number] 4 2023 90 Pharmac y Data Transac tion Service Facilit y CALCITRIOL 0.5MCG CAP TAKE 2 CAPSULES BY MOUTH ONCE A DAY ORAL ACTIVE Susy MESSINA R 2017 [facility] CHOLECALCIF CRISTHIAN 50MCG (2,000UNIT) TAB TAKE ONE TABLET BY MOUTH ONCE A DAY ORAL ACTIVE Susy MESSINA R [facility] FERROUS SO4 325MG TAB TAKE ONE TABLET BY MOUTH ORAL ACTIVE Susy MESSINA R [facility] HYDRALAZINE HCL 100MG TAB TAKE ONE TABLET BY MOUTH THREE TIMES A DAY ORAL ACTIVE Susy MESSINA R 2020 [facility] INSULIN DEGLUDEC FLEXTOUCH INJ INJECT 35 UNITS UNDER THE SKIN ONCE A DAY SUBCUT ANEOUS ACTIVE Susy MESSINA R 2020 [facility] INSULIN,LIS PRO,HUMAN 100 UNT/ML INJ,HUMALOG INJECT 15 UNITS UNDER THE SKIN THREE TIMES A DAY SUBCUT ANEOUS ACTIVE Susy MESSINA R 2020 [facility] IRBESARTAN (IRBESARTAN ), 75 MG, TABLET, ORAL, CAMBER PHARMACE, 30 ea. BOTTLE Active [id number] 2023 90 Pharmac y Data Transac tion Service Facilit y NIFEDIPINE (EQV-CC) 30MG TAB,SA TAKE ONE TABLET BY MOUTH ONCE A DAY ORAL ACTIVE Susy MESSINA R 2022 [facility] NIFEDIPINE ER (nifedipine ), 90 MG, TABLET ER, ORAL, INGENUS PHARMAC, 100 ea. BOTTLE Active [id number] 2023 90 Pharmac y Data Transac tion Service Facilit y ROSUVASTATI N CA 20MG TAB TAKE ONE-HALF TABLET BY MOUTH EVERY EVENING ORAL ACTIVE Susy MESSINA R 2017 [facility] ROSUVASTATI N CALCIUM (rosuvastat in calcium), 10 MG, TABLET, ORAL, NOVADOZ PHARMAC, 1000 ea. BOTTLE Active [id number] 4 2023 90 Pharmac y Data Transac tion Service Facilit y SILDENAFIL CITRATE 100MG TAB TAKE ONE TABLET BY MOUTH ONE HOUR PRIOR TO SEXUAL ACTIVITY FOR ERECTILE DYSFUNCT ION NEEDED - LIMIT 6 DOSES PER 30 DAYS ORAL ACTIVE 12/24/2024 [id number] Susy MESSINA R [address] [facility] TRESIBA FLEXTOUCH U-200 (insulin degludec), 200/ML (3), INSULN PEN, SUBCUT, VIOLET NORDISK, 3 ml SYRINGE Cancele d [id number] : 2023 0 Pharmac y Data Transac tion Service Facilit y TRESIBA FLEXTOUCH U-200 (insulin degludec), 200/ML (3), INSULN PEN, SUBCUT, VIOLET NORDISK, 3 ml SYRINGE Cancele d [id number] : 2023 0 Pharmac y Data Transac tion Service Facilit y Immunizations Combined list of available immunizations from the Department of Defense and Veterans Affairs facilities. 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 COVID-19, MRNA, LNP-S, BIVALENT BOOSTER, PF, 50 MCG/0.5 ML OR 25MCG/0.25 ML DOSE 1 2021 229 complet ed MOD; [id number]; 3 [facility] COVID-19, mRNA, LNP-S, PF, 100 mcg or 50 mcg dose 2021 TURABELIDZE, () Not Given COVID-19, mRNA, LNP-S, PF, 100 mcg or 50 mcg dose DoD COVID-19 (MODERNA), MRNA, LNP-S, PF, 100 MCG/0.5ML DOSE OR 50 MCG/0.25ML DOSE 2 2021 207 complet ed [facility] INFLUENZA, INJECTABLE, QUADRIVALENT, PRESERVATIVE FREE 2020 150 complet ed [place] [facility] COVID-19, mRNA, LNP-S, PF, 100 mcg or 50 mcg dose 2020 Leisa [employer] (MOD) Not Given COVID-19, mRNA, LNP-S, PF, 100 mcg or 50 mcg dose DoD COVID-19 (MODERNA), MRNA, LNP-S, PF, 100 MCG/0.5ML DOSE OR 50 MCG/0.25ML DOSE 1 2020 207 complet ed [facility] COVID-19 (MODERNA), MRNA, LNP-S, PF, 100 MCG/0.5 ML DOSE 2 2020 207 complet ed MOD; [id number]; 1 [place] [facility] COVID-19 (MODERNA), MRNA, LNP-S, PF, 100 MCG/0.5 ML DOSE 1 2020 207 complet ed MOD; [id number]; 1 [place] [facility] INFLUENZA, INJECTABLE, QUADRIVALENT, PRESERVATIVE FREE 2019 150 complet ed [place] [place] [facility] TDAP [address] [facility] INFLUENZA, INJECTABLE, QUADRIVALENT, PRESERVATIVE FREE [address] [facility] PNEUMOCOCCAL POLYSACCHARID E PPV23 [address] [facility] PNEUMOCOCCAL CONJUGATE PCV [address] [facility] ZOSTER RECOMBINANT [address] [facility] INFLUENZA, INJECTABLE, QUADRIVALENT, PRESERVATIVE FREE [address] [facility] ZOSTER RECOMBINANT 1 2017 187 complet ed [facility] Tdap 2017 MOUNIKA, () Not Given Tdap [facility] INFLUENZA, INJECTABLE, QUADRIVALENT, PRESERVATIVE FREE 2 2016 150 complet ed HISTORICA L INFORMATI ON - FROM OTHER REGISTRY, [facility] INFLUENZA, SEASONAL, INJECTABLE, PRESERVATIVE FREE [address] [facility] INFLUENZA, SEASONAL, INJECTABLE, PRESERVATIVE FREE 1 2013 140 complet ed HISTORICA L INFORMATI ON - FROM OTHER REGISTRY, [facility] PNEUMOCOCCAL POLYSACCHARID E PPV23 1 2013 33 complet ed HISTORICA L INFORMATI ON - FROM OTHER REGISTRY, [facility] TDAP 1 2013 115 complet ed HISTORICA L INFORMATI ON - FROM OTHER REGISTRY, [facility] INFLUENZA, UNSPECIFIED FORMULATION 2012 88 complet ed [place] [facility] INFLUENZA, UNSPECIFIED FORMULATION [address] [facility] INFLUENZA, UNSPECIFIED FORMULATION [address] [facility] INFLUENZA, UNSPECIFIED FORMULATION [address] [facility] INFLUENZA, UNSPECIFIED FORMULATION [address] [facility] INFLUENZA, UNSPECIFIED FORMULATION [address] [facility] PNEUMOCOCCAL, UNSPECIFIED FORMULATION 2007 109 complet ed [employer], Right Deltoid, Lot #:[id number] [facility] INFLUENZA, UNSPECIFIED FORMULATION [address] [facility] INFLUENZA (HISTORICAL) [address] [facility] INFLUENZA, UNSPECIFIED FORMULATION [address] [facility] INFLUENZA, UNSPECIFIED FORMULATION [address] [facility] INFLUENZA, UNSPECIFIED FORMULATION 2002 88 complet ed [place] [facility] INFLUENZA, UNSPECIFIED FORMULATION 2001 88 complet ed [place] [facility] INFLUENZA, UNSPECIFIED FORMULATION [address] [facility] PNEUMOCOCCAL, UNSPECIFIED FORMULATION 2000 109 complet ed [facility] INFLUENZA, UNSPECIFIED FORMULATION [address] BRIAN SALEH [address] [facility] TD(ADULT) UNSPECIFIED FORMULATION 1994 139 complet ed [facility] Vital Signs Combined list of inpatient and outpatient Vital Signs from Department of Defense and Veterans Affairs, ranging from 12 months to all on record, depending upon the facility. Vital Sign Value Date Comments Source PULSE OXIMETRY 95 01/06/2024 13:18:00 [facility] WEIGHT 227.5 01/06/2024 13:18:00 [facility] BMI 33 kg/m2 01/06/2024 13:18:00 [facility] PAIN 0 01/06/2024 13:18:00 [facility] HEIGHT 70.0 01/06/2024 13:18:00 [facility] PULSE 69 01/06/2024 13:18:00 [facility] RESPIRATION 18 01/06/2024 13:18:00 [facility] Encounters Combined list of: 1) Encounters from Department of [facility] Affairs facilities going backup to the last 18 months, not all [place] inpatient encounters are included; 2) Encounters from the Department of [facility] facilities going backup to 280 months. Location Location Details Encounter Type Encounter Number Reason For Visit Attending Provider ADM Date DC Date Status Disposition Source [facility] Outpatient Encounter [id number] 06/04 [facility] Outpatient Encounter [id number] 06/07 [facility] [place] [facility] Outpatient Encounter [id number] 06/10 [place] [facility] [place] [facility] Outpatient Encounter [id number] 06/29 [place] [facility] Outpatient Encounter [id number] 07/05 [facility] Outpatient Encounter [id number] 07/05 [facility] Outpatient Encounter [id number] 07/19 [facility] [place] [facility] Outpatient Encounter [id number] 07/22 [place] [facility] Outpatient Encounter [id number] 07/28 [facility] Outpatient Encounter [id number] 08/09 [facility] Outpatient Encounter [id number] 08/11 [facility] Outpatient Encounter [id number] 08/25 [facility] En[facility] [id number] 08/25 [facility] [place] [facility] Outpatient Encounter [id number] 08/25 [place] [facility] Outpatient Encounter [id number] 09/14 [facility] Outpatient Encounter [id number] CORNELIA KERR RIL L 11/07 [facility] [place] [facility] Outpatient Encounter [id number] 11/25 [place] [facility] Outpatient Encounter [id number] CORNELIA KERR RIL L 11/25 [facility] [place] [facility] Outpatient Encounter [id number] 11/28 [place] [facility] Outpatient Encounter [id number] 11/29 [facility] Outpatient Encounter [id number] 12/01 [facility] Outpatient Encounter [id number] 12/08 [facility] Outpatient Encounter [id number] 12/13 [facility] Outpatient Encounter [id number] TAD BIRCH J 12/29 [facility] Outpatient Encounter [id number] 01/03 [facility] Outpatient Encounter [id number] 01/03 [facility] Outpatient Encounter [id number] 01/04 [facility] IMMUNIZATI ON ADMIN [id number] Diagnos is: ICD-10- CM E78.49 Other hyperli pidemia ROBERT MESSINA 01/05 [facility] Outpatient Encounter [id number] 01/18 [facility] Outpatient Encounter [id number] 01/18 [facility] Outpatient Encounter [id number] CORNELIA KERR 01/30 [facility] Outpatient Encounter [id number] AZULLIANNE WALLACEA Michelle 01/31 [facility] Outpatient Encounter [id number] 02/07 [facility] Outpatient Encounter [id number] 03/07 [facility] Outpatient Encounter [id number] 03/14 [facility] Outpatient Encounter [id number] 03/22 [facility] Outpatient Encounter [id number] 03/23 [facility] QNHP OL DIG ASSMT&MGMT 02-22 [id number] Diagnos is: ICD-10- CM E11.9 Type 2 diabete s mellitu s without complic ations GAETANO ZHAO 03/24 [facility] Outpatient Encounter [id number] 06/22 [facility] Outpatient Encounter [id number] 09/07 [facility] En[facility] [id number] NUBIA STEINER 09/08 [facility] Outpatient Encounter [id number] 10/04 [facility] Social History Combined list of available smoking, tobacco, and other social history from Department of Defense and Veterans Affairs facilities. Social History Type Response Date Comment Sourc e Tobacco smoking status NHIS VA-TOBACCO NEVER USED 01/06/2024 [facility] History of tobacco use VA-TOBACCO NEVER USED 10/23/2021 [facility] History of tobacco use VA-TOBACCO NEVER USED 09/16/2020 [facility] History of tobacco use VA-TOBACCO NEVER USED 12/30/2018 [facility] History of tobacco use [facility] NEVER [facility] [facility] History of tobacco use QUIT TOBACCO >7 Y EARS AGO 03/08/2008 [facility] History of tobacco use QUIT TOBACCO >7 Y EARS AGO 09/21/2007 [facility] History of tobacco use LIFETIME NON-USER OF TOBACCO 08/26/2007 [facility] History of tobacco use CURRENT NON-TOBAC CO USER-HX OF USE 10/05/2005 [facility] History of tobacco use CURRENT NON-TOBAC CO USER-HX OF USE 04/15/2005 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 History of tobacco use CURRENT NON-TOBAC CO USER-HX OF USE 09/25/2002 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 This section is an empty social history section. DoD Plan of Care List of future care activities from Department of Veterans Affairs facilities. Additional future care activities may be listed in the Assessment and Plan section. Date/Time Care Activity Care Activity Detail Facili ty 01/04/2025 AMBULATORY - MEDICINE AMBULATORY - MEDICI [facility]
--- OUTSIDE RECORDS SUMMARY | 2024-10-18 15:39 | XMS_ITS ---
Author Name [facility], Clinic Address [address] [place] [address] Phone [phone] Organization [facility], NA DOCUMENT DISCLAIMER Multiple document versions may exist, please be sure you review the latest version. The information in the [facility] Continuity of Care Document represents a summary of certain health and medical information. It may not contain the complete medical history for the patient and should be independently verified. The represented time in the document is Eastern Time. PROBLEMS Problem Code Status Onset Date Umbilical hernia with obstruction, without gangrene K4 2.0 Active November 29, 2023 Hypertensive chronic kidney disease with stage 5 chronic kidney disease or end stage renal disease I12.0 Active November 29, 2023 Dependence on renal dialysis Z99.2 Active May 18, 2022 End stage renal disease N18.6 Active Febr uary 2022 Coagulation defect, unspecified D68.9 Active March 23, 2022 Shortness of breath R06.02 Active February 19, 2022 Nausea R11.0 Active February 19 Chest pain, unspecified R07.9 Active Nove mb 2021 Allergy, unspecified, subsequent encounter T78.40XD Active February 19, 2022 Cramp and spasm R25.2 Active February 19, 2022 Fever, unspecified R50.9 Active February 19, 2022 Hypotension of hemodialysis I95.3 Active February 19, 2022 Pain, unspecified R52 Active December 03, 2021 Autonomic neuropathy in dise ases classified elsewhere G99.0 Active December 03, 2021 Extrapyramidal and movement disorder, unspecified G25. 9 Active December 03, 2021 Hyperlipidemia, unspecified E78.5 Active December 03, 2021 End stage renal disease N18.[address] 2021 Encounter for immunization Z23 Active A ugust 2021 Unspecified protein-calorie malnutrition E46 Active December 03, 2021 Secondary hyperparathyroidism of renal origin N25.81 Active December 03, 2021 Other disorders of phosphorus metabolism E83.39 Active December 03, 2021 Essential (primary) hypertension I10 Active December 03, 2021 Iron deficiency anemia, unspecified D50.9 Activ e December 03, 2021 Anemia in chronic kidney disease D63.1 Active December 03, 2021 Type 1 diabetes mellitus wit h diabetic chronic kidney disease E10.22 Active December 03, 2021 ALLERGIES AND ADVERSE REACTIONS No Known Allergies SOCIAL HISTORY Tobacco Use Status Tobacco Type Unknown if ever consumed tobacco - Caregiver Characteristics Need Level ADL Type Relationship of Caregiver Independent N/A N/A Characteristics of Home environment Housing Status Patient Resides With House spouse Gender and Sex Information Gender Identity Sexual Orientation Male Decline to answer MEDICATIONS Prescribed Medications for Dialysis Treatments Medication Instructions Dosage Route Start Date End Date Stat us Heparin Sodium (Porcine) 1,000 Units/mL Systemic Bolus, Every Treatment, Total treatment minutes 195 6000 units Intravenous - push February 14, 2024 February 12, 2025 Active Mircera During Dialysis, Every 4 weeks 50 mcg Intravenous - push October 09, 2024 October 08, 2025 Active Vitamin D (Calcitriol) Oral During Dialysis, 3X Week 0.75 mcg Oral September 13, 2024 September 12, 2025 Active Home Medications Medication Instructions Dosage Route Start Date End Date Stat us acetaminophen 325 mg Take by mouth every six to eight hours as needed for pain 2 tablet ORAL December 09, 2021 Active aspirin 81 mg Take by mouth once a day 1 tablet ORAL December 09, 2021 Active bumetanide 1 mg Take by mouth once a day 1 tablet ORAL March 10, 2022 Active carvedilol 12.5 mg Take by mouth twice a day 1 tablet ORAL December 09, 2021 Active Humalog Mix 50-50 KwikPen 100 unit/mL (50-50) Inject subcutaneously three times a day as directed 1 unit SUBCUTANEOUS February 19, 2022 Active hydralazine 25 mg Take by mouth every evening 1 ORAL February 29, 2024 Active irbesartan 150 mg Take by mouth once a day 1 tablet ORAL December 01, 2023 Active nifedipine 90 mg Take by mouth once a day 1 tablet ORAL March 24, 2023 Active rosuvastatin 10 mg Take by mouth at bedtime 1 tablet ORAL April 16, 2023 Active Sevelamer Carbonate Tablet 800 mg Take By Mouth Three times a day With Meals 2 Tablet By Mouth April 10, 2024 April 10, 2025 Active Tresiba FlexTouch U-100 100 unit/mL (3 mL) Inject subcutaneously every morning 24 unit SUBCUTANEOUS February 19, 2022 Active VITAL SIGNS Post-Treatment Vital Signs Vital Sign Value Date / Time Blood Pressure-sitting 137/76 mmHg October 16, 2024 11:19 AM Blood Pressure-standing 120/55 mmHg October 16, 2024 11:19 AM Heart Rate 63 beats per minute October 16 11:19 AM Respiratory Rate 12 breaths per minute October 16, 2024 11:19 AM Temperature 97.5 deg. F October 16, 2024 11 :19 AM Weight Vital Sign Value Date / Time Estimated Dry Weight 97.8 kg October 13 11:59 PM Pre-Dialysis 100.90 kg October 16, 2024 11 :19 AM Post-Dialysis 98.50 kg October 16, 2024 11 :19 AM Other Other Value Date / Time Height 180 cm December 03, 2021 12:00 AM HEALTH CONCERNS Tuberculosis Testing TST Date Administered TST Date Read TST Result 12/04/2021 12/06/2021 Negative (<5) mm LAB RESULTS Hematology Result Type Result Value Relevant Referen ce Range Interpretation Date UIBC/TIBC 170 mcg/dL 155 - 355 mcg/dL - April 24, 2024 Transferrin Sat. (Calc) 24 % 20 - 55 % - April 24, 2024 TIBC (Calc) 224 mcg/dL 185 - 515 mcg/dL - April 24, 2024 Neutrophils 66.6 % 40.0 - 75.0 % - April TIBC (Calc) 230 mcg/dL 185 - 515 mcg/dL - April 26, 2024 UIBC/TIBC 176 mcg/dL 155 - 355 mcg/dL - April 26, 2024 Transferrin Sat. (Calc) 23 % 20 - 55 % - April 26, 2024 Ferritin 1475 ng/mL 22 - 322 ng/mL High April WBC (No Diff) 6.28 1000/mcL 4.80 - 10.80 1000/mcL - April 26, 2024 Platelets 318 1000/mcL 130 - 400 1000/mcL - Mihir elizabeth 2024 WBC (No Diff) 7.14 1000/mcL 4.80 - 10.80 1000/mcL - May 10, 2024 Neutrophils 71.0 % 40.0 - 75.0 % - May Platelets 256 1000/mcL 130 - 400 1000/mcL - Febr uary 2024 TIBC (Calc) 226 mcg/dL 185 - 515 mcg/dL - uar y 2024 UIBC/TIBC 126 mcg/dL 155 - 355 mcg/dL Low May 10, 2024 Transferrin Sat. (Calc) 44 % 20 - 55 % - May 10 UIBC/TIBC 119 mcg/dL 155 - 355 mcg/dL Low June Transferrin Sat. (Calc) 48 % 20 - 55 % - June 07, 2024 TIBC (Calc) 229 mcg/dL 185 - 515 mcg/dL - June WBC (No Diff) 7.18 1000/mcL 4.80 - 10.80 1000/mcL - June 07, 2024 Neutrophils 65.8 % 40.0 - 75.0 % - June 07, 2024 Platelets 278 1000/mcL 130 - 400 1000/mcL - Hardik h 2024 Ferritin 1198 ng/mL 22 - 322 ng/mL High June 07, 2024 Neutrophils 72.4 % 40.0 - 75.0 % - July 07, 2024 TIBC (Calc) 226 mcg/dL 185 - 515 mcg/dL - July UIBC/TIBC 117 mcg/dL 155 - 355 mcg/dL Low July Transferrin Sat. (Calc) 48 % 20 - 55 % - July 07, 2024 WBC (No Diff) 7.06 1000/mcL 4.80 - 10.80 1000/mcL - July 07, 2024 Platelets 336 1000/mcL 130 - 400 1000/mcL - Apri l 2024 Hemoglobin x 3 32.7 % 42.0 - 54.0 % Low July 052024 Hemoglobin x 3 32.7 % 42.0 - 54.0 % Low July 062024 MCH 33.9 pg 27.0 - 31.0 pg High August 09 RDW 15.1 % 11.5 - 14.5 % High August 09 MCHC 34.3 g/dL 30.0 - 36.0 g/dL - August 09, 2024 Hemoglobin x 3 32.1 % 42.0 - 54.0 % Low August 09, 2024 Platelets 308 1000/mcL 130 - 400 1000/mcL - August 09, 2024 Lymphocytes 13.8 % 19.0 - 48.0 % Low August 09 Neutrophils 74.5 % 40.0 - 75.0 % - August 09 Eosinophil 4.8 % 0.0 - 7.0 % - August 09, 2024 Monocytes 4.1 % 3.0 - 10.0 % - August 09, 2024 RIOS 1.5 % 0.0 - 4.0 % - August 09, 2024 Basophils 1.3 % 0.0 - 1.5 % - August 09, 2024 WBC (No Diff) 7.68 1000/mcL 4.80 - 10.80 1000/mcL - August 09, 2024 TIBC (Calc) 230 mcg/dL 185 - 515 mcg/dL - August 09, 2024 UIBC/TIBC 110 mcg/dL 155 - 355 mcg/dL Low August 09, 2024 Transferrin Sat. (Calc) 52 % 20 - 55 % - August 09, 2024 Iron 120 mcg/dL 45 - 160 mcg/dL - August 09, 025 Hemoglobin x 3 31.5 % 42.0 - 54.0 % Low August 28, 2024 Hemoglobin x 3 30.9 % 42.0 - 54.0 % Low September Platelets 187 1000/mcL 130 - 400 1000/mcL - September 06, 2024 Eosinophil 10.2 % 0.0 - 7.0 % High September 06, 2024 Basophils 0.0 % 0.0 - 1.5 % - September 06, 2024 RIOS 2.9 % 0.0 - 4.0 % - September 06, 2024 WBC (No Diff) 2.74 1000/mcL 4.80 - 10.80 1000/mcL Low September 06, 2024 MCH 32.8 pg 27.0 - 31.0 pg High September 06 MCHC 33.2 g/dL 30.0 - 36.0 g/dL - September 06, 2024 RDW 14.4 % 11.5 - 14.5 % - September 06 Transferrin Sat. (Calc) 35 % 20 - 55 % - September 06, 2024 TIBC (Calc) 201 mcg/dL 185 - 515 mcg/dL - September UIBC/TIBC 130 mcg/dL 155 - 355 mcg/dL Low September 06, 2024 Iron 71 mcg/dL 45 - 160 mcg/dL - September 06, 2024 Neutrophils 74.0 % 40.0 - 75.0 % - September 06 025 Lymphocytes 9.1 % 19.0 - 48.0 % Low September 06, 2 025 Monocytes 3.8 % 3.0 - 10.0 % - September 06 5 Ferritin 6221 ng/mL 22 - 322 ng/mL High September 06, Hemoglobin x 3 27 % 42.0 - 54.0 % Low September HGB 9.6 g/dL 14.0 - 18.0 g/dL Low September 20, 2024 Hemoglobin x 3 28.8 % 42.0 - 54.0 % Low September Monocytes 3.8 % 3.0 - 10.0 % - October 04 5 Eosinophil 5.2 % 0.0 - 7.0 % - October 04, 2024 Basophils 0.7 % 0.0 - 1.5 % - October 04, 2024 Neutrophils 60.4 % 40.0 - 75.0 % - October 04 Lymphocytes 28.1 % 19.0 - 48.0 % - October 04 HGB 10.2 g/dL 14.0 - 18.0 g/dL Low October 04, 2024 Hemoglobin x 3 30.6 % 42.0 - 54.0 % Low October RIOS 1.7 % 0.0 - 4.0 % - October 04, 2024 WBC (No Diff) 9.89 1000/mcL 4.80 - 10.80 1000/mcL - October 04, 2024 RBC 3.06 mill/mcL 4.70 - 6.10 mill/mcL Low October 04, 2024 HCT 31.5 % 42.0 - 52.0 % Low October 04 MCH 33.3 pg 27.0 - 31.0 pg High October 04 MCHC 32.4 g/dL 30.0 - 36.0 g/dL - October 04, 2024 RDW 13.8 % 11.5 - 14.5 % - October 04 Platelets 319 1000/mcL 130 - 400 1000/mcL - October 04, 2024 Transferrin Sat. (Calc) 33 % 20 - 55 % - October 04, 2024 TIBC (Calc) 236 mcg/dL 185 - 515 mcg/dL - October Iron 79 mcg/dL 45 - 160 mcg/dL - October 04, 2024 UIBC/TIBC 157 mcg/dL 155 - 355 mcg/dL - October 04, 2024 HGB 10.3 g/dL 14.0 - 18.0 g/dL Low October 11, 2024 Hemoglobin x 3 30.9 % 42.0 - 54.0 % Low October Metabolic/Renal Result Type Result Value Relevant Reference Range Interpre tation Date Hemoglobin A1c 6.7 % 4.8 - 5.9 % High June 07, 2024 URR, Calc 75 % 65 - 80 % - August 09, 2024 BUN, Post 14 mg/dL 6 - 19 mg/dL - August 09, 2024 BUN 55 mg/dL 6 - 19 mg/dL High August 09, 2024 BUN/Creat Ratio 6.1 10.0 - 20.0 Low August 09, 2024 Creatinine, Serum 9.04 mg/dL 0.60 - 1.30 mg/dL High August 09, 2024 Potassium 5.8 mEq/L 3.5 - 5.1 mEq/L High August 09 Sodium 137 mEq/L 136 - 145 mEq/L - August 09 Bicarbonate 24 mEq/L 22 - 29 mEq/L - August 09 25 Chloride 96 mEq/L 96 - 108 mEq/L - August 09 25 BUN 50 mg/dL 6 - 19 mg/dL High September 06 Potassium 4.7 mEq/L 3.5 - 5.1 mEq/L - September 06, 2024 Sodium 132 mEq/L 136 - 145 mEq/L Low September 06, 2024 BUN/Creat Ratio 4.9 10.0 - 20.0 Low September 06, 2024 Creatinine, Serum 10.28 mg/dL 0.60 - 1.30 mg/dL High September 06, 2024 Bicarbonate 25 mEq/L 22 - 29 mEq/L - September 06 Chloride 92 mEq/L 96 - 108 mEq/L Low September 06 BUN, Post 14 mg/dL 6 - 19 mg/dL - September 06 URR, Calc 72 % 65 - 80 % - September 06, 2024 Hemoglobin A1c 7.0 % 4.8 - 5.9 % High September 06, 2024 Sodium 135 mEq/L 136 - 145 mEq/L Low October 04, 2024 Potassium 5.3 mEq/L 3.5 - 5.1 mEq/L High October 04, 2024 Chloride 93 mEq/L 96 - 108 mEq/L Low October 04 Bicarbonate 27 mEq/L 22 - 29 mEq/L - October 04 BUN 46 mg/dL 6 - 19 mg/dL High October 04 Creatinine, Serum 9.12 mg/dL 0.60 - 1.30 mg/dL High October 04, 2024 BUN/Creat Ratio 5.0 10.0 - 20.0 Low October 04, 2024 BUN, Post 12 mg/dL 6 - 19 mg/dL - October 04 URR, Calc 74 % 65 - 80 % - October 04, 2024 HD Adequacy Result Type Result Value Relevant Referen ce Range Interpretation Date Krt/V 0.00 No Reference Ran ge Provided - April 26, 2024 Krt/V 0.00 No Reference Ran ge Provided - May 10, 2024 Krt/V 0.00 No Reference Ran ge Provided - May 26, 2024 Krt/V 0.00 No Reference Ran ge Provided - June 07, 2024 Krt/V 0.00 No Reference Ran ge Provided - July 07, 2024 eKt/V ([place]) 1.32 No Reference Range Provided - August 09, 2024 wstdKt/V without residual 2.4 No Reference Range Provided - August 09, 2024 Krt/V 0.00 No Reference Ran ge Provided - August 09, 2024 spKt/V Gotch 1.59 No Reference Ran ge Provided - August 09, 2024 wstdKt/V, residual 0.0 No Reference Range Provided - August 09, 2024 spKt/V (Daugirdas II) 1.56 No Reference Range Provided - August 09, 2024 wstdKt/V 2.4 No Reference Ran ge Provided - August 09, 2024 wstdKt/V 2.3 No Reference Ran ge Provided - September 06, 2024 eKt/V ([place]) 1.17 No Reference Range Provided - September 06, 2024 wstdKt/V without residual 2.3 No Reference Range Provided - September 06, 2024 spKt/V (Daugirdas II) 1.37 No Reference Range Provided - September 06, 2024 wstdKt/V, residual 0.0 No Reference Range Provided - September 06, 2024 Krt/V 0.00 No Reference Ran ge Provided - September 06, 2024 spKt/V Gotch 1.37 No Reference Ran ge Provided - September 06, 2024 Krt/V 0.00 No Reference Ran ge Provided - October 04, 2024 wstdKt/V, residual 0.0 No Reference Range Provided - October 04, 2024 spKt/V (Daugirdas II) 1.50 No Reference Range Provided - October 04, 2024 spKt/V Gotch 1.52 No Reference Ran ge Provided - October 04, 2024 wstdKt/V 2.4 No Reference Ran ge Provided - October 04, 2024 wstdKt/V without residual 2.4 No Reference Range Provided - October 04, 2024 eKt/V ([place]) 1.27 No Reference Range Provided - October 04, 2024 Bone/Mineral Result Type Result Value Relevant Referen ce Range Interpretation Date Magnesium 2.1 mg/dL 1.6 - 2.6 mg/dL - December 08, 2023 Magnesium 2.2 mg/dL 1.6 - 2.6 mg/dL - March 08, 2024 PTH-Intact, Plasma 218 pg/mL 16 - 80 pg/mL High Apr Magnesium 2.4 mg/dL 1.6 - 2.6 mg/dL - April 062024 Magnesium 2.0 mg/dL 1.6 - 2.6 mg/dL - June 07, 2024 PTH-Intact, Plasma 619 pg/mL 16 - 80 pg/mL [facility] Jun Vitamin D 25 Hydroxy 54.4 ng/mL 30.0 - 100.0 ng/mL - June 07, 2024 Corrected Ca x P Product 64 0 - 54 High August 09, 2024 Calcium, Total 9.9 mg/dL 8.4 - 10.2 mg/dL - August 09, 2024 Ca x P Product 65 0 - 54 High August 09 Phosphorus 6.6 mg/dL 2.6 - 4.5 mg/dL High August 09 PTH-Intact, Plasma 461 pg/mL 16 - 80 pg/mL High August 11, 2024 Alkaline Phosphatase 61 U/L 40 - 129 U/L - 2024 Ca x P Product 54 0 - 54 - September 06 025 Phosphorus 5.8 mg/dL 2.6 - 4.5 mg/dL High September 06, 2024 Calcium, Total 9.3 mg/dL 8.4 - 10.2 mg/dL - September 06, 2024 Corrected Ca x P Product 55 0 - 54 High September 06, 2024 PTH-Intact, Plasma 500 pg/mL 16 - 80 pg/mL High Sep Magnesium 2.1 mg/dL 1.6 - 2.6 mg/dL - September 06, 2024 Calcium, Total 9.2 mg/dL 8.4 - 10.2 mg/dL - October 04, 2024 Phosphorus 5.7 mg/dL 2.6 - 4.5 mg/dL High October 04, 2024 Corrected Ca x P Product 51 0 - 54 - October 04, 2024 Ca x P Product 52 0 - 54 - October 04, 025 Liver/Nutrition Result Type Result Value Relevant Reference Range Interpre tation Date Glucose 339 mg/dL 70 - 100 mg/dL High August 09 Albumin (BCG) 4.2 g/dL 3.5 - 5.2 g/dL - August 09, 2024 Total Protein 6.3 g/dL 6.0 - 8.5 g/dL - August 09, 2024 A/G Ratio 2.0 1.0 - 2.0 - August 09, 2024 Globulin (Calc) 2.1 g/dL 2.0 - 4.0 g/dL - August eNPCR 0.91 No Reference Range Provided - August 09, 2024 Total Protein 6.1 g/dL 6.0 - 8.5 g/dL - September Albumin (BCG) 3.9 g/dL 3.5 - 5.2 g/dL - September eNPCR 0.76 No Reference Range Provided - September 06, 2024 Glucose 222 mg/dL 70 - 100 mg/dL High September 06 025 A/G Ratio 1.8 1.0 - 2.0 - September 06, 2024 Globulin (Calc) 2.2 g/dL 2.0 - 4.0 g/dL - September 06, 2024 Glucose 407 mg/dL 70 - 100 mg/dL High October 04 025 eNPCR 0.76 No Reference Range Provided - October 04, 2024 Globulin (Calc) 2.3 g/dL 2.0 - 4.0 g/dL - October 04, 2024 A/G Ratio 1.8 1.0 - 2.0 - October 04, 2024 Total Protein 6.5 g/dL 6.0 - 8.5 g/dL - October Albumin (BCG) 4.2 g/dL 3.5 - 5.2 g/dL - October Immunochemistry Result Type Result Value Relevant Referen ce Range Interpretation Date HCV s/co ratio 0.08 0.00 - 0.79 - December 08, 2023 HCV s/co ratio 0.04 0.00 - 0.79 - June 07, 2024 Trace Elements Result Type Result Value Relevant Reference Range Interpre tation Date Aluminum 5 mcg/L 0 - 10 mcg/L - December Aluminum < 5 mcg/L 0 - 10 mcg/L - June 07 Infectious Diseases Result Type Result Value Relevant Referen ce Range Interpretation Date HCV Ab (anti-HCV) Nonreactive No Reference R marisel Provided - June 07, 2024 Hep B Surface Ab (anti-HBs) 23 mIU/mL No Reference Range Provided - June 07, 2024 Hep B Surface Ag (HBsAg) Negative No Reference Range Provided - June 07, 2024 DIALYSIS PRESCRIPTION Conventional Hemodialysis Data Element Value Order Date/Time October 13, 2024 Frequency 3X Week Treatment Days MonWedFri Dialyzer [id number] Optiflux Treatment Time (Total Minutes) 195 min Blood Flow Rate (mL/min) 550 mL/min Dialysate Flow Rate Autoflow 2.0 Estimated Dry Weight 97.8 kg Dialysate Concentrate 3.0 K, 2.5 Ca, 1.0 Mg, 100 Dextrose (N3251) Sodium (mEq/L) 137 mEq/L Bicarb Machine Setting (mEq/L) 35 mEq/L Dialysis Access Hemodialysis-AV Fist josé antonio-Standard, Right Forearm, Other/Unknown Arterial Needle Size Buttonhole 14g Venous Needle Size Buttonhole 14g TRANSPLANT WAITLIST STATUS No Information on Transplant Waitlist Status ADVANCE DIRECTIVES Directive Description Ordered By Effective Date Resuscitation status Full Code Earline Squires Jan DIALYSIS TREATMENTS Conventional Hemodialysis Date Pre-Treatment Vitals Post-Treatment Sheyla ls Duration (hr) BFR (mL/min) Dialysate Dialyzer Dialysis Access Meds Admin October 11, 2024 Weight 101.20 kg Weight 97.70 kg 03:18:00 450 3.0 K, 2.5 Ca, 1.0 Mg, 100 Dextrose (N3251) 180nre Optifl ux Blood Pressure-sitting 139/72 mmHg Blood Pressure-sit ting 123/71 mmHg Blood Pressure-standing 135/69 mmHg Blood Pressure-st anding 120/56 mmHg Heart Rate 69 beats per minute Heart Rate 67 beats per minute Respiratory Rate 18 breaths per minute Respiratory Rate 18 breaths per minute Temperature 98.2 deg. F Temperature 96.8 deg. F October 13, 2024 Weight 101.00 kg Weight 97.80 kg 03:17:00 550 3.0 K, 2.5 Ca, 1.0 Mg, 100 Dextrose (N3251) 180nre Optiflux Hemodialysis-AV Fistula-Standard, Right Forearm, Other/Unknown Heparin Sodium (Porcine) 1,000 Units/mL Systemic; 6000units,Intravenous - push Vitamin D (Calcitriol) Oral; 0.75mcg,Oral Blood Pressure-sitting 141/56 mmHg Blood Pressure-sit ting 118/70 mmHg Blood Pressure-standing 110/73 mmHg Blood Pressure-st anding 122/72 mmHg Heart Rate 78 beats per minute Heart Rate 64 beats per minute Respiratory Rate 16 breaths per minute Respiratory Rate 16 breaths per minute Temperature 98.9 deg. F Temperature 97.5 deg. F October 16, 2024 Weight 100.90 kg Weight 98.50 kg 03:24:00 530 3.0 K, 2.5 Ca, 1.0 Mg, 100 Dextrose (N3251) 180nre Optiflux Hemodialysis-AV Fistula-Standard, Right Forearm, Other/Unknown Heparin Sodium (Porcine) 1,000 Units/mL Systemic; 6000units,Intravenous - push Vitamin D (Calcitriol) Oral; 0.75mcg,Oral Blood Pressure-sitting 137/69 mmHg Blood Pressure-sit ting 137/76 mmHg Blood Pressure-standing 120/63 mmHg Blood Pressure-st anding 120/55 mmHg Heart Rate 71 beats per minute Heart Rate 63 beats per minute Respiratory Rate 16 breaths per minute Respiratory Rate 12 breaths per minute Temperature 98.2 deg. F Temperature 97.5 deg. F
--- OUTSIDE RECORDS SUMMARY | 2024-10-18 15:39 | XMS_ITS | Patient Health Record ---
Author Organization [facility] Address [address] [place] [address] Care Team Providers Care Portrait Painter Name Role Phone [facility] Primary Care Provider Curry Kim Unavailable [phone] Allergies No Known Allergies Reason For Referral No Information Medications Medication SIG (Take, Route, Frequency, Duration) Notes Start Date End Date Status Procrit 4000 UNIT/ML Solution 1mL (4,000 units) Injection once a week; Duration: 90 days Active Calcitriol 0.5 MCG Capsule 1 capsule Orally Once a day; Duration: 90 days 02/02/2020 Active Carvedilol 12.5 mg Tablet TAKE 1 TABLET TWICE A DAY WITH FOOD Active Iron (Ferrous Sulfate) 325 (65 Fe) MG Tablet 1 tablet Orally qMWF Active NIFEdipine ER 90 mg Tablet Extended Release 24 Hour 1 tablet on an empty stomach Orally Once a day; Duration: 90 Active Ocuvite Ocuvite 02/15/2019 Not-Takin g 3 ML insulin degludec 200 UNT/ML Pen Injector [Tresiba] 3 ML insulin degludec 200 UNT/ML Pen Injector [Tresiba] 04/16/2017 Active Atorvastatin Calcium 40 MG Tablet Take 1 tablet(s) by mouth daily Oral; Duration: 30 Atorvastatin Calcium 40mg Tablet Take 1 tablet(s) by mouth daily 06/14/2013 Not-Taking HumaLOG Humalog 09/11/2014 Active Multivitamin Not-Yanick ing Gabapentin 300 MG Capsule (Prior Auth#:[id number]) Oral; Duration: 90 Not-Taking Furosemide 80 mg Tablet TAKE 1 TABLET TWICE A DAY Active Crestor 10 MG Tablet 1 tablet Orally Once a day Active Sodium Bicarbonate 650 MG Tablet 1 tablet Orally BID; Duration: 90 days 05/31/2019 Active hydrALAZINE HCl 100 MG Tablet TAKE 1 TABLET BY MOUTH THREE TIMES DAILY; Duration: 30 Active Immunizations Vaccine Route Administration Date Status Comme nts Influenza (whole), CPT 03694 Inactive Unknown 12/25/2015 Administered Influenza (whole), CPT 71573 Inactive Unknown 02/02/2017 Administered Influenza (whole), CPT 27968 Inactive Unknown 01/02/2018 Administered Influenza (whole), CPT 58648 Inactive Unknown 01/03/2018 Administered Influenza (whole), CPT 44116 Inactive Unknown 01/03/2019 Administered Pneumovax 23 Unknown 04/05/2017 Administered Social History Tobacco Use: Social History Observation Description Date Details (start date - stop date) Never Smoker NA - NA Social History Drugs/Alcohol: Social Info Question Answer Notes Alcohol Screen (Audit-C) Did you have a drink containing alcohol in the past year? No Points 0 Interpretation Negative Household: Social Info Question Answer Notes Household Spiritism: Buddhism Tobacco Use: Social Info Question Answer Notes xTobacco Use/Smoking Are you a nonsmoker Section Notes: He stopped drinking alcohol in 1993 He stopped drinking alcohol in 1993 He stopped drinking alcohol in 1993 He stopped drinking alcohol in 1993 He stopped drinking alcohol in 1993 He stopped drinking alcohol in 1993 He stopped drinking alcohol in 1993 He stopped drinking alcohol in 1993 Problems Problem Type SNOMED Code ICD Code Onset Dates Problem Status W/U Status Risk Notes Problem Anemia in chronic kidney disease (532135226) Anemia in chronic kidney disease (D63.1) Active confirmed Problem Hypertensive heart AND chronic kidney disease stage 5 (disorder) (85243131257825) Hypertensive chronic kidney disease with stage 5 chronic kidney disease or end stage renal disease (I12.0) Active confirmed Problem Chronic kidney disease due to hypertension (896074418640510) Hypertensive chronic kidney disease with stage 1 through stage 4 chronic kidney disease, or unspecified chronic kidney disease (I12.9) Active confirmed Problem Isolated protein uria with other morphologic lesion (N06.8) Active confirmed Problem Chronic kidney disease stage 4 (753797364) Chronic kidney disease, stage 4 (severe) (N18.4) Active confirmed Problem Iron deficiency anemia (69879114) Iron deficiency anemia, unspecified iron deficiency anemia type (D50.9) Active confirmed Problem Metabolic acidosis (87766449) Metabolic acidosis (E87.2) Active confirmed Problem Anemia (581199583) Anemia (D64.9) Active confir med Problem Proteinuria (52969704) Proteinuria (R80.9) Active confirmed Problem Benign essential hypertension (6824383) Benign essential hypertension (I10) Active confirmed Problem Chronic kidney disease stage 4 (767056916) Chronic kidney disease, stage IV (severe) (N18.4) Active confirmed Problem Hyperuricemia withou t signs of inflammatory arthritis and tophaceous disease (934371902) Hyperuricemia without signs inflammatory arthritis/tophaceous disease (E79.0) Active confirmed Problem Chronic kidney disease stage 5 (483328940) Chronic kidney disease, stage V (very severe) (N18.5) Active confirmed Problem Hyperparathyroidism due to renal insufficiency (41762917) Secondary hyperparathyroidism (of renal origin) (N25.81) Active confirmed Problem Diabetic renal disease (482769927) Chronic kidney disease due to diabetes mellitus (E11.22) Active confirmed Problem Chronic kidney disease stage 3 (298758155) Chronic kidney disease, Stage III (moderate) (585.3) 2014 Active confirmed [id number]- Problem Lab: Used to mat ch unlinked laboratory orders (V92) 2013 Active confirmed [id number]- Problem Diabetes mellitus type 2 (disorder) (35265398) Type 2 diabetes (250.00) 2010 Active confirmed [id number]- Problem Proteinuria (81323803) Proteinuria (791.0) 2010 Problem resolved confirmed [id number]- Problem Vitamin D deficiency (02782844) Vitamin D deficiency (268.9) 2010 Problem resolved confirmed [id number]- Problem Persistent cough (312266014) Persistent cough (786.2) 2013 Problem resolved confirmed [id number]- Problem Allergic rhinitis du e to allergen (34129106) Allergic rhinitis, other allergen-induced, NEC (477.8) 2014 Problem resolved confirmed [id number]- Problem Disorder of hematopoietic system (18133337) Other abnormal findings on blood examination (790.99) 2015 Problem resolved confirmed [id number]- Problem Shingles (3356880) Shingles (053.9) 09/06 Problem resolved confirmed [id number]- Problem Pure hypercholesterolemia (669012969) Essential hypercholesterolemia (272.0) 2004 Problem resolved confirmed [id number]- Problem General examination of patient (315546000) Annual exam (V70.0) 2009 Problem resolved confirmed [id number]- Problem Anemia due to chroni c blood loss (054661083) Chronic blood loss resulting in anemia (280.0) 2010 Problem resolved confirmed [id number]- Problem Callus (948495318) Callus (700) 2011 Problem resolved confirmed [id number]- Problem Diabetes type 1 with neurological disorder (290392713) Diabetes with neurological manifestations, type I [juvenile type] uncontrolled (250.63) 2004 Problem resolved confirmed [id number]- Problem Essential hypertension (65245172) Essential hypertension (401.1) 2009 Problem resolved confirmed [id number]- Problem Gastroesophageal reflux disease (589582286) GERD (530.81) 2004 Problem resolved confirmed [id number]- Problem 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) 2013 Problem resolved confirmed [id number]- Problem Type II diabetes mellitus without complication (115904475) NIDDM (250.00) 2009 Problem resolved confirmed [id number]- Problem Pedal edema (470865137) Pedal edema (782.3) 2014 Problem resolved confirmed [id number]- Problem Transient ischemic attack (044821441) Transient ischemic attack (435.9) 2008 Problem resolved confirmed [id number]- Plan Of Treatment No Information Insurance Providers Payer Name Payer Address Payer Phone Subscriber Number Group Number Insured Name Patient Relationship to Insured Coverage Start Date Coverage End Date [employer] [address] [place] [phone] [id number] [place] Self - patient is the insured Medical (General) History Medical History History ICD Code Allergic rhinitis Anemia of CKD Benign essential hypertension Chronic kidney disease stage IV Diabetes mellitus type 2 Diabetic glomerulopathy Drug therapy finding Edema of lower extremity Gastroesophageal reflux disease Hyperlipidemia Secondary hyperparathyroidism due to ann al insufficiency Hyperuricemia without signs of inflammat ory arthritis and tophaceous disease Iron deficiency anemia Proteinuria Metabolic acidosis Surgical History Surgery Date(Month/Year) tonsillectomy colonoscopy cholecystectomy Right Yudy AV fistula 04/16/2020 Hospitalization History Reason Date(Month/Year) see surgical
[2024-10-18 15:58] LABS: Hematocrit 32.1 % (37-53); Hemoglobin 10.80 g/dL (11.27-16.99); Mean Corpuscular HGB Conc 33.6 g/dL (30-55); Mean Corpuscular Hemoglobin 33.6 pg (27-33); Mean Corpuscular Volume 100.0 fl (82-101); Nucleated Red Blood Cells % 0 %; Platelet Count 314 10^3/cmm (157-399); Red Blood Count 3.21 10^6/uL (3.85-5.65); White Blood Count 13.27 10^3/uL (3.29-11.43)
[2024-10-18 16:17] LABS: Troponin(5th) Baseline 43 ng/L (0-15)
[2024-10-18 16:20] LABS: Alanine Aminotransferase 13 U/L (0-41); Albumin Level 4.6 g/dL (3.5-5.2); Alkaline Phosphatase 78 U/L (40-130); Anion Gap 16.7 (5-19); Aspartate Amino Transferase 12 U/L (0-40); Blood Urea Nitrogen 19 mg/dL (8-23); Calcium 9.9 mg/dL (8.5-10.5); Carbon Dioxide 32 mmol/L (22-29); Chloride 94 mmol/L (98-107); Creatinine Clr Calc Pharmacy 19.8362; Globulin 2.4 g/dL (1.3-4.6); Glucose 99 mg/dL (65-115); Lipase 83 U/L (13-60); Osmolality Calculated 288 mOsm/kg (285-295); Potassium 4.7 mmol/L (3.5-5.1); Sodium 138 mmol/L (136-145); Total Protein 7.0 g/dL (6.6-8.7)
[2024-10-18 17:42] VITALS: BP 134/69; PULSE 86; RESP 18; O2SAT 96
--- NOTE | 2024-10-18 18:01 | W.ED.CHESTPA ---
HPI - Chest Pain General: Chief Complaint: Chest Pain Stated Complaint: Chest pain Time Seen by Provider: 10/18/24 17:30 History of Present Illness: 68-year-old man with a history of type 1 diabetes, hypertension and end-stage renal disease on dialysis who presents emergency room after he developed some chest pain while he was at dialysis. He is had a mild dry cough today. He says it just started today. No lower extremity swelling. He says the pain is all the way across his chest. Worse with deep breathing. No edema. No fever. Related Data Home Medications ?Medication ?Instructions ?Recorded ?Confirmed calcitriol 0.5 mcg capsule 0.5 mcg PO DIRECTED 06/18/20 10/03/24 carvedilol 12.5 mg tablet 12.5 mg PO BID 06/18/20 10/03/24 aspirin 81 mg tablet,delayed 81 mg PO DIRECTED 06/26/21 10/03/24 release nifedipine 90 mg tablet,extended 30 mg PO BEDTIME 05/12/22 10/03/24 release bumetanide 1 mg tablet 1 mg PO BEDTIME 11/25/23 10/03/24 irbesartan 75 mg tablet 75 mg PO BEDTIME 11/25/23 10/03/24 rosuvastatin 10 mg tablet 10 mg PO BEDTIME 11/25/23 10/03/24 sevelamer carbonate 800 mg tablet 1,600 mg PO TID 11/26/23 10/03/24 tramadol 50 mg tablet See Rx Instructions .Route .COMPLEX 11/26/23 10/03/24 vit B,C-folic ac 800 mcg-zinc 12.5 1 tab PO QPM 11/26/23 10/03/24 mg-selen-D3 2,000 unit-vit E tablet (RenaPlex-D) Previous Rx's ?Medication ?Instructions ?Recorded cyclobenzaprine 5 mg tablet 5 mg PO BEDTIME PRN muscle spasm 12/30/23 #10 tabs diclofenac sodium 50 mg 50 mg PO BID PRN pain #14 tabs 12/30/23 tablet,delayed release prednisone 20 mg tablet 60 mg (3 x 20 mg) PO DAILY #20 tabs 12/30/23 tramadol 50 mg tablet 50 mg PO Q8H PRN pain #10 tabs 12/30/23 blood-glucose sensor (Dexcom G7 #9 ea 06/23/24 Sensor device) insulin lispro 100 unit/mL See Rx Instructions .Route 07/20/24 subcutaneous pen .COMPLEX #60 mL insulin degludec 200 unit/mL (3 See Rx Instructions .Route 09/12/24 mL) subcutaneous pen (Tresiba .COMPLEX #9 mL FlexTouch U-200 insulin) Allergies Allergy/AdvReac Type Severity Reaction Status Date / Time No Known Allergies Allergy Verified 10/18/24 15:39 Review of Systems Narrative: Constitutional symptoms: Negative except as documented in HPI. Skin symptoms: Negative except as documented in HPI. Eye symptoms: Negative except as documented in HPI. ENMT symptoms: Negative except as documented in HPI. Respiratory symptoms: Negative except as documented in HPI. Cardiovascular symptoms: Negative except as documented in HPI. Gastrointestinal symptoms: Negative except as documented in HPI. Genitourinary symptoms: Negative except as documented in HPI. Musculoskeletal symptoms: Negative except as documented in HPI. Neurologic symptoms: Negative except as documented in HPI. Psychiatric symptoms: Negative except as documented in HPI. Endocrine symptoms: Negative except as documented in HPI. PFSH ED PFSH: Medical History (Updated 10/18/24 @ 18:43 by Vickie Campbell MD) End stage renal disease on dialysis Coronary artery disease Diabetic retinopathy 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 Uncontrolled type 1 diabetes mellitus Surgical History AV fistula History of tonsillectomy History of colonoscopy History of cholecystectomy Family History Other Cancer Diabetes Social History Smoking and tobacco/nicotine status: never used tobacco/nicotine Second hand smoke exposure: No Alcohol intake: never Physical Exam Narrative: EXAM NARRATIVE: General: Alert, no acute distress. Skin: Warm, dry. Head: Normocephalic, atraumatic. Neck: Supple, trachea midline. Eye: Extraocular movements are intact. Ears, nose, mouth and throat: mucosa moist. Cardiovascular: Regular, Normal peripheral perfusion. Respiratory: Lungs are clear to auscultation, respirations are non-labored, breath sounds are equal, Symmetrical chest wall expansion. Gastrointestinal: Soft, Nontender, Non distended Musculoskeletal: Normal ROM, no deformity. Neurological: Alert and oriented, No focal neurological deficit observed. Psychiatric: Cooperative, appropriate mood & affect. Course Vital Signs: Vital signs: Vital Signs Temperature 98.4 F 10/18/24 15:36 Pulse Rate 86 10/18/24 17:42 Respiratory Rate 18 10/18/24 17:42 Blood Pressure 134/69 10/18/24 17:42 Pulse Oximetry 96 10/18/24 17:42 Oxygen Delivery Me thod Room Air 10/18/24 17:42 MDM - Chest Pain Medical Decision Making Differential diagnosis for patient with chest pain includes but is not limited to and based on the above HPI, review of systems and physical exam: Pneumonia. unstable angina. angina. Acute coronary syndrome / IA. Pulmonary embolism. Costochondritis / musculoskeletal. Pleurisy. Pericarditis. Esophageal spasm. Pancreatis. Cholecystitis. Orders placed to evaluate differential diagnosis based on the above differential, HPI and physical exam EKG: Time 1535. Rate 75. Normal sinus rhythm, No ST-T changes, PVCs, normal OK & QRS intervals, This was reviewed and interpreted by the ER physician at 1540. Chest x-ray: Stable cardiomegaly. No acute process. No infiltrate. No pneumothorax. This was reviewed and interpreted by myself the emergency room physician. I also reviewed the radiology report. Lab Review: Laboratory results were reviewed and interpreted by myself the emergency room physician. Mild leukocytosis with a white count of 13,000. Stable anemia. BUN and creatinine are 19 and 4.3 which is not unexpected in this dialysis patient. Potassium is 4.7 initial troponin is 42 and follow-up troponin is 42 as well with no change. This elevation is secondary to his end-stage renal disease. I reviewed the patient's medical record. Reexamination: Patient remained stable. No increased work of breathing. No altered mental status. No focal motor deficits. Assessment and plan: Noncardiac chest pain - Discharged home - Discussed plan with patient. Answered any questions. - Evaluation and treatment of this problem were appropriate in the emergency setting. Lab Data 10/18/24 15:46 10/18/24 15:46 Radiology Impressions Chest X-Ray 10/18/24 15:33 IMPRESSION: Stable cardiomegaly Laboratory Results WBC 13.27 10^3/uL (3.29-11.43) H 10/18/24 15:46 RBC 3.21 10^6/uL (3.85-5.65) L 10/18/24 15:46 Hgb 10.80 g/dL (11.27-16.99) L 10/18/24 15:46 Hct 32.1 % (37-53) L 10/18/24 15:46 MCV 100.0 fl (82-101) 10/18/24 15:46 MCH 33.6 pg (27-33) H 10/18/24 15:46 MCHC 33.6 g/dL (30-55) 10/18/24 15:46 RDW 13.8 % (12.1-15.1) 10/18/24 15:46 Plt Count 314 10^3/cmm (157-399) 10/18/24 15:46 MPV 9.0 fL (7.4-10.4) 10/18/24 15:46 Neut % (Auto) 72.5 % 10/18/24 15:46 Lymph % (Auto) 17.9 % 10/18/24 15:46 [facility] % (Auto) 6.5 % 10/18/24 15:46 Eos % (Auto) 2.5 % 10/18/24 15:46 Baso % (Auto) 0.3 % 10/18/24 15:46 Neut # (Auto) 9.63 10^3/uL (1.8-7.7) H 10/18/24 15:46 Lymph # (Auto) 2.4 10^3/uL (0.8-4.8) 10/18/24 15:46 [facility] # (Auto) 0.9 10^3/uL (0.2-0.9) 10/18/24 15:46 Eos # (Auto) 0.3 10^3/uL (0.0-0.8) 10/18/24 15:46 Baso # (Auto) 0.0 10^3/uL (0.0-0.1) 10/18/24 15:46 Nucleated RBC % (auto) 0 % 10/18/24 15:46 Nucleated RBCs # 0.0 /100WBC 10/18/24 15:46 Sodium 138 mmol/L (136-145) 10/18/24 15:46 Potassium 4.7 mmol/L (3.5-5.1) 10/18/24 15:46 Chloride 94 mmol/L (98-107) L 10/18/24 15:46 Carbon Dioxide 32 mmol/L (22-29) H 10/18/24 15:46 Anion Gap 16.7 (5-19) 10/18/24 15:46 BUN 19 mg/dL (8-23) 10/18/24 15:46 Creatinine 4.3 mg/dL (0.7-1.2) H 10/18/24 15:46 GFR Calculation 13.9 mL/min (90-130) L 10/18/24 15:46 Glucose 99 mg/dL (65-115) 10/18/24 15:46 Calculated Osmolality 288 mOsm/kg (285-295) 10/18/24 15:46 Calcium 9.9 mg/dL (8.5-10.5) 10/18/24 15:46 Total Bilirubin 0.2 mg/dL (0.15-1.2) 10/18/24 15:46 AST 12 U/L (0-40) 10/18/24 15:46 ALT 13 U/L (0-41) 10/18/24 15:46 Alkaline Phosphatase 78 U/L (40-130) 10/18/24 15:46 Troponin T Baseline 43 ng/L (0-15) H 10/18/24 15:46 Troponin T 120 Minute 42.24 ng/L (0-15) H 10/18/24 17:44 Delta Troponin T -0.76 ABS# (0-10) L 10/18/24 17:44 Total Protein 7.0 g/dL (6.6-8.7) 10/18/24 15:46 Albumin 4.6 g/dL (3.5-5.2) 10/18/24 15:46 Globulin 2.4 g/dL (1.3-4.6) 10/18/24 15:46 Lipase 83 U/L (13-60) H 10/18/24 15:46 All radiology interpretation(s) finalized by discharge Discharge Plan Discharge Patient Disposition: Home Clinical Impression: Non-cardiac chest pain Condition: Stable Prescriptions: No Action calcitriol 0.5 mcg capsule 0.5 mcg PO DIRECTED Rx Instructions: Wednesday, Wednesday, Wednesday with dialysis. carvedilol 12.5 mg tablet 12.5 mg PO BID Rx Instructions: must administer with a meal/food nifedipine 90 mg tablet extended release 30 mg PO BEDTIME aspirin 81 mg tablet,delayed release (DR/EC) 81 mg PO DIRECTED Rx Instructions: Wednesday, Wednesday, and Wednesday with dialysis (DME) Dexcom G7 Sensor Device See Rx Instructions .Route Qty: 9 1RF Rx Instructions: As directed insulin lispro 100 unit/mL insulin pen See Rx Instructions .ROUTE .COMPLEX Qty: 60 1RF Dose Instruction: INJECT 20 units SUBCUTANEOUSLY THREE TIMES DAILY. max DAILY DOSE: 60 units Rx Instructions: INJECT 20 units SUBCUTANEOUSLY THREE TIMES DAILY. max DAILY DOSE: 60 units Tresiba FlexTouch U-200 200 unit/mL (3 mL) insulin pen See Rx Instructions .ROUTE .COMPLEX Qty: 9 0RF Dose Instruction: inject 24 units subcutaneously IN THE MORNING Rx Instructions: inject 24 units subcutaneously IN THE MORNING irbesartan 75 mg Tablet 75 mg PO BEDTIME bumetanide 1 mg Tablet 1 mg PO BEDTIME rosuvastatin 10 mg tablet 10 mg PO BEDTIME tramadol 50 mg tablet See Rx Instructions .ROUTE .COMPLEX Rx Instructions: TAKE 1-2 TABLETS BY MOUTH EVERY 6 HOURS NEEDED FOR PAIN. sevelamer carbonate 800 mg tablet 1,600 mg PO TID RenaPlex-D 800 mcg-12.5 mg -2,000 unit tablet 1 tab PO QPM prednisone 20 mg tablet 60 mg PO DAILY Qty: 20 0RF Rx Instructions: 3 tabs (60 mg) x 3 days. 2 tabs (40 mg) x 3 days. 1 tab (20 mg) x 3 days. 1/2 tab (10 mg) x 4 days tramadol 50 mg tablet 50 mg PO Q8H PRN (Reason: pain) Qty: 10 0RF diclofenac sodium 50 mg tablet,delayed release (DR/EC) 50 mg PO BID PRN (Reason: pain) Qty: 14 0RF cyclobenzaprine 5 mg tablet 5 mg PO BEDTIME PRN (Reason: muscle spasm) Qty: 10 0RF Discharge Orders: Discharge ED (Routine); Ordered 10/18/24 Ordered By: Vickie Campbell Referrals: Yasmin Kohler, ACADEMIC ASSOCIATE [Primary Care Provider, Nurse Practitioner] Discharge Diet: Usual diet Discharge Activity: Increase activity as tolerated Patient Instructions: Noncardiac Chest Pain (ED), Opioid Safety, Pain Management, Patient Portal & Josias Instructions Activity Restrictions/Additional Instructions: Thank you for choosing [facility] for your healthcare needs today. You have been screened and evaluated and felt safe for discharge. Health conditions do change or evolve sometimes and as such it is important that you follow up with your Primary Doctor to be re checked, 3-5 days is a general good time frame for follow up. You are always welcome to return to the ED for re assessment if your symptoms are worsening or you have new concerns Print Language: Khmer Coding Level of Care Code ED Head Men'S Tennis Coach for Giana Bell
[2024-10-18 18:26] LABS: Troponin 5 2HR 42.24 ng/L (0-15)
[2024-10-18 18:38] LABS: Troponin 5 2HR Delta -0.76 ABS# (0-10)
[2024-10-18 18:52] VITALS: BP 110/61; PULSE 105; O2SAT 98
--- NOTE | 2024-10-18 18:53 | ECG_ITS ---
[facility] Test Date: 2024-10-18 Pat Name: [place] Department: Room: Gender: Male Office Agent: : [id number] Requested By: Sammy Almazan Order Number: [id number] Reading MD: DEUCE PLATA Measurements Intervals [place] Rate: 80 P: 46 DE: 176 QRS: -22 QRSD: 88 T: 46 QT: 357 QTc: 413 Interpretive Statements SINUS RHYTHM WITH FREQUENT SUPRAVENTRICULAR PREMATURE COMPLEXES BORDERLINE LEFT AXIS DEVIATION [QRS AXIS < -20] ABNORMAL RHYTHM ECG Compared to ECG 10/18/2024 15:35:12 Myocardial infarct finding no longer present Electronically Signed On 10-21-2024 16:13:04 CDT by DEUCE PLATA [email or web address]
== END 2024-10-18 18:53 | disposition home or self-care (01) ==
PROVIDERS: Emergency Medicine; Emergency Provider Emergency Medicine; PCP Nurse Practitioner
DX: R07.89 Other chest pain (principal); Z79.82 Long term (current) use of aspirin; Z79.4 Long term (current) use of insulin; I25.10 Atherosclerotic heart disease of native coronary artery without angina pectoris; E10.22 Type 1 diabetes mellitus with diabetic chronic kidney disease; I12.0 Hypertensive chronic kidney disease with stage 5 chronic kidney disease or end stage renal disease; N18.6 End stage renal disease
CPT/HCPCS: 36415; 71045; 80053; 83690; 84484; 85025; 93005; 99285

== ENCOUNTER 2025-01-24 13:37 | Outpatient (CLI) | payer OTHER, SELFPAY ==
[2025-01-24 15:00] LABS: Creatinine Urine, Random 104 mg/dL (39-259)
[2025-01-24 15:07] LABS: Alanine Aminotransferase 16 U/L (0-41); Albumin Level 4.8 g/dL (3.5-5.2); Alkaline Phosphatase 73 U/L (40-130); Anion Gap 17.3 (5-19); Aspartate Amino Transferase 13 U/L (0-40); Blood Urea Nitrogen 14 mg/dL (8-23); Calcium 9.7 mg/dL (8.5-10.5); Carbon Dioxide 32 mmol/L (22-29); Chloride 95 mmol/L (98-107); Cholesterol 145 mg/dL (0-200); Globulin 3.0 g/dL (1.3-4.6); Glucose 80 mg/dL (65-115); HDL Cholesterol 46 mg/dL (60-100); Osmolality Calculated 291 mOsm/kg (285-295); Potassium 3.3 mmol/L (3.5-5.1); Sodium 141 mmol/L (136-145); Total Protein 7.8 g/dL (6.6-8.7); Triglycerides 311 mg/dL (0-150)
[2025-01-24 15:12] LABS: Microalbum Creatinine Ratio Ur 673 mg/dL (0-20)
[2025-01-24 15:14] LABS: Estmated Average Glucose 151; Hemoglobin A1C 6.9 % (4.0-6.0)
== END 2025-01-24 13:38 | disposition home or self-care (01) ==
LOC: LAB 13:38
PROVIDERS: PCP Nurse Practitioner; Visit Provider Internal Medicine
DX: E78.2 Mixed hyperlipidemia (principal); E10.65 Type 1 diabetes mellitus with hyperglycemia; Z79.4 Long term (current) use of insulin
CPT/HCPCS: 36415; 80053; 80061; 82044; 83036

== ENCOUNTER → 2025-01-25 09:04 | Outpatient (BNVA) | payer OTHER, SELFPAY | PROVIDERS: PCP Nurse Practitioner; Visit Provider Internal Medicine Endocrinology, Diabetes & Metabolism | DX: E10.319 Type 1 diabetes mellitus with unspecified diabetic retinopathy without macular edema (principal); Z79.4 Long term (current) use of insulin; E10.22 Type 1 diabetes mellitus with diabetic chronic kidney disease; N18.5 Chronic kidney disease, stage 5; E10.649 Type 1 diabetes mellitus with hypoglycemia without coma; E16.0 Drug-induced hypoglycemia without coma; T38.3X5A Adverse effect of insulin and oral hypoglycemic [antidiabetic] drugs, initial encounter; E78.2 Mixed hyperlipidemia; X58.XXXA Exposure to other specified factors, initial encounter | CPT/HCPCS: 99214 ==